=== PATIENT | female | born 1960 | race Caucasian/White ===

== ENCOUNTER 2017-02-24 19:14 | Inpatient (IN) | payer OTHER ==
[~2017-02-24] VITALS: Ht 167.6 cm; Wt 95.4 kg
[~2017-02-24 19:14] MED LIST: ALPR1TAB PO; FENO134C10 PO; GABA600T2 PO; OXCA600T3 PO; OXYC15TA PO; OXYC1TAB7 PO; PARO20TA55 PO
[2017-02-24 19:57] LABS: BASO # 0.1 x10^3/uL (0.0-0.2); BASO % 1 % (0-3); EOS % 2 % (0-3); HEMATOCRIT 45.2 % (36.0-47.0); HEMOGLOBIN 15.2 g/dL (12.0-15.5); LYMPH # 3.5 x10^3/uL (1.0-4.8); LYMPH % 35 % (24-48); MEAN CORPUSCULAR HEMOGLOBIN 31 pg (25-35); MEAN CORPUSCULAR HGB CONC 34 g/dL (31-37); MEAN CORPUSCULAR VOLUME 92 fL (79-100); MONO % 5 % (0-9); NEUT % 57 % (31-73); PLATELET COUNT 305 x10^3/uL (140-400); RED BLOOD COUNT 4.94 x10^6/uL (3.50-5.40); RED CELL DISTRIBUTION WIDTH 13.4 % (11.5-14.5)
[2017-02-24] MEDS ORDERED: ALPRAZOLAM 0.5 MG TABLET. PO ONE (20:00)
[2017-02-24 20:22] LABS: PROTHROMBIN TIME PATIENT 12.4 SEC (11.7-14.0)
[2017-02-24 20:49] LABS: POTASSIUM 3.2 mmol/L (3.5-5.1); TOTAL BILIRUBIN 0.3 mg/dL (0.2-1.0); TOTAL PROTEIN 7.6 g/dL (6.4-8.2)
[2017-02-24 20:50] LABS: ALBUMIN/GLOBULIN RATIO 1.1 (1.0-1.7); CALCIUM 9.4 mg/dL (8.5-10.1); CREATININE 0.5 mg/dL (0.6-1.0); GFR 127.2
--- NOTE | 2017-02-24 20:50 | PHYS DOC ---
Past Medical History Past Medical History: Bipolar, Depression, High Cholesterol, Schizophrenia, Other Additional Past Medical Histor: PTSD Past Surgical History: Tonsillectomy, Other Additional Past Surgical Histo: EYE SURG Additional Information: 1 ppd Alcohol Use: Occasionally Additional Information: 1- 6 pack every three to 4 days Drug Use: Marijuana Adult General Chief Complaint Chief Complaint: CHEST PAIN HPI HPI 56-year-old female with history of anxiety presents with a 2 to three-hour history of severe substernal chest pressure that radiates up into her shoulders and down her arms. She states it radiates primarily down her left arm. She describes the pain is severe. She does not note anything that improves or exacerbates the pain. She denies shortness of breath or dyspnea on exertion. She denies nausea or diaphoresis. She does state that she is very anxious. [] Review of Systems Review of Systems Constitutional: Denies fever or chills [] Eyes: Denies change in visual acuity, redness, or eye pain [] HENT: Denies nasal congestion or sore throat [] Respiratory: Denies cough or shortness of breath [] Cardiovascular: No additional information not addressed in HPI [] GI: Denies abdominal pain, nausea, vomiting, bloody stools or diarrhea [] : Denies dysuria or hematuria [] Musculoskeletal: Denies back pain or joint pain [] Integument: Denies rash or skin lesions [] Neurologic: Denies headache, focal weakness or sensory changes [] Endocrine: Denies polyuria or polydipsia [] Current Medications Current Medications Current Medications Medications (Trade) Dose Ordered Sig/[facility] Start Time Stop Time Status Last Admin Dose Admin Acetaminophen (Tylenol) 650 mg PRN Q4HRS PRN 02/24/17 21:15 02/25/17 21:14 Alprazolam (Xanax) 1 mg 1X ONCE 02/24/17 20:00 02/24/17 20:01 DC 02/24/17 19:53 1 MG Aspirin (Children'S Aspirin) 324 mg 1X ONCE 02/24/17 21:15 02/24/17 21:16 DC 02/24/17 21:57 324 MG Enoxaparin Sodium (Lovenox 100mg Syringe) 90 mg Q12HR 02/24/17 21:30 02/24/17 21:57 90 MG Enoxaparin Sodium (Lovenox Per Pharmacy Treatment Dosing) 1 each PRN DAILY PRN 02/24/17 21:15 Morphine Sulfate 4 mg PRN Q2HR PRN 02/24/17 21:15 02/25/17 21:14 Nitroglycerin (Nitrostat) 0.4 mg PRN Q5MIN PRN 02/24/17 21:15 02/25/17 21:14 Ondansetron HCl (Zofran) 4 mg PRN Q8HRS PRN 02/24/17 21:15 02/25/17 21:14 Allergies Allergies Allergies Coded Allergies Type Severity Reaction Last Updated Verified No Known Drug Allergies 12/15/13 No Physical Exam Physical Exam Constitutional: Well developed, well nourished, no acute distress, non-toxic appearance. [] HENT: Normocephalic, atraumatic, bilateral external ears normal, oropharynx moist, no oral exudates, nose normal. [] Eyes: PERRLA, EOMI, conjunctiva normal, no discharge. [] Neck: Normal range of motion, no tenderness, supple, no stridor. [] Cardiovascular:Heart rate regular rhythm, no murmur [] Lungs & Thorax: Bilateral breath sounds clear to auscultation [] Abdomen: Bowel sounds normal, soft, no tenderness, no masses, no pulsatile masses. [] Skin: Warm, dry, no erythema, no rash. [] Back: No tenderness, no CVA tenderness. [] Extremities: No tenderness, no cyanosis, no clubbing, ROM intact, no edema. [] Neurologic: Alert and oriented X 3, normal motor function, normal sensory function, no focal deficits noted. [] Psychologic: Affect normal, judgement normal, mood normal. [] Current Patient Data Vital Signs Vital Signs Date Time Temp Pulse Resp B/P Pulse Ox O2 Delivery O2 Flow Rate FiO2 02/24/17 21:17 94 18 108/59 86 Room Air 02/24/17 19:25 98.0 98.0 Lab Values Laboratory Tests Test 02/24/17 19:41 White Blood Count 10.0x10^3/uL (4.0-11.0) Red Blood Count 4.94x10^6/uL (3.50-5.40) Hemoglobin 15.2g/dL (12.0-15.5) Hematocrit 45.2% (36.0-47.0) Mean Corpuscular Volume 92fL (79-100) Mean Corpuscular Hemoglobin 31pg (25-35) Mean Corpuscular Hemoglobin Concent 34g/dL (31-37) Red Cell Distribution Width 13.4% (11.5-14.5) Platelet Count 305x10^3/uL (140-400) Neutrophils (%) (Auto) 57% (31-73) Lymphocytes (%) (Auto) 35% (24-48) Monocytes (%) (Auto) 5% (0-9) Eosinophils (%) (Auto) 2% (0-3) Basophils (%) (Auto) 1% (0-3) Neutrophils # (Auto) 5.7x10^3uL (1.8-7.7) Lymphocytes # (Auto) 3.5x10^3/uL (1.0-4.8) Monocytes # (Auto) 0.5x10^3/uL (0.0-1.1) Eosinophils # (Auto) 0.2x10^3/uL (0.0-0.7) Basophils # (Auto) 0.1x10^3/uL (0.0-0.2) Prothrombin Time 12.4SEC (11.7-14.0) Prothrombin Time INR 1.0 (0.8-1.1) Sodium Level 138mmol/L (136-145) Potassium Level 3.2mmol/L (3.5-5.1) L Chloride Level 103mmol/L (98-107) Carbon Dioxide Level 20mmol/L (21-32) L Anion Gap 15 (6-14) H Blood Urea Nitrogen 9mg/dL (7-20) Creatinine 0.5mg/dL (0.6-1.0) L Estimated GFR (Cockcroft-Gault) 127.2 BUN/Creatinine Ratio 18 (6-20) Glucose Level 153mg/dL (70-99) H Calcium Level 9.4mg/dL (8.5-10.1) Total Bilirubin 0.3mg/dL (0.2-1.0) Aspartate Amino Transferase (AST) 27U/L (15-37) Alanine Aminotransferase (ALT) 36U/L (14-59) Alkaline Phosphatase 68U/L (46-116) Troponin I Quantitative 0.058ng/mL (0.000-0.055) WZ-Uua-G-Type Natriuretic Peptide 29pg/mL (0-124) Total Protein 7.6g/dL (6.4-8.2) Albumin 4.0g/dL (3.4-5.0) Albumin/Globulin Ratio 1.1 (1.0-1.7) Laboratory Tests 02/24/17 19:41 Laboratory Tests 02/24/17 19:41 EKG EKG [EKG: Sinus tachycardia rate of [address]-T changes] Radiology/Procedures Radiology/Procedures [Chest x-ray: No acute cardiopulmonary findings] Course & Med Decision Making Course & Med Decision Making Pertinent Labs and Imaging studies reviewed. (See chart for details) [ED course: Evaluation reveals a extremely anxious 56-year-old female complaining of chest discomfort. She was given 1 mg of Xanax which did help alleviate her anxiety.] Dragon Disclaimer Dragon Disclaimer This electronic medical record was generated, in whole or in part, using a voice recognition dictation system. Departure Departure Impression: Primary Impression: Chest pain Referrals: LETHA WONG MD (PCP) Problem Qualifiers Primary Impression: Chest pain Chest pain type: precordial pain Qualified Code: R07.2 - Precordial pain MARGI WILSON DO Feb 24, 2017 20:50
[2017-02-24] MEDS ORDERED: ASPIRIN CHEWABLE 81 MG TABLET. PO ONE (21:15)
[2017-02-24] MEDS ORDERED: ONDANSETRON PF 4 MG/2 ML VIAL. IV PRN (21:15)
[2017-02-24] MEDS ORDERED: ACETAMINOPHEN 325 MG TABLET. PO PRN (21:15)
[2017-02-24] MEDS ORDERED: NITROGLYCERIN SUBLINGUAL 0.4 MG BOTTLE OF 25. SL PRN (21:15)
[2017-02-24] MEDS ORDERED: MORPHINE SULFATE 4 MG/ML DISP.SYRIN. IV PRN (21:15)
--- NOTE | 2017-02-24 22:38 | ACF ---
Admission Forms Criteria CHEST PAIN Clinical Indications for Admission to Inpatient Care (Place 'X' for any and all applicable criteria): Admission is indicated for chest pain and ANY ONE of the following(1)(2)(3)(4)(5 ): [ ]I. Angina with acute coronary syndrome (Also use Myocardial Infarction or Angina guideline) [ ]II. Hemodynamic instability [ ]III. Angina needing acute intervention as indicated by ALL of the following( 11)(12): [ ]a) Unstable angina is present as indicated by angina that is ANY ONE of the following: [ ]i) New onset [ ]ii) Nocturnal [ ]iii) Prolonged at rest [ ]iv) Progressive [ ]b) Angina warrants acute intervention as indicated by ANY ONE of the following: [ ]i) Recurrent angina (e.g, not responding as previously to treatment) [ ]ii) Angina at rest or with low-level activities despite initial medical therapy [ ]iii) New or presumably new ST-segment depression on ECG [ ]iv) Signs or symptoms of heart failure (eg, dyspnea, pulmonary edema) [ ]v) New or worsening mitral regurgitation [ ]vi) Hemodynamic instability [ ]vii) Dangerous arrhythmia (eg, sustained ventricular tachycardia) [ ]viii) History of percutaneous coronary intervention within 6 months [ ]ix) History of coronary artery bypass graft surgery [ ]x) ROSE risk score of 2 or greater[A] [ ]xi) History of Diabetes(14) [ ]xii) High-risk cardiac ischemia findings on noninvasive testing (e.g, echocardiogram, treadmill testing, nuclear scan) [ ]xiii) Chronic renal insufficiency (ie, estimated GFR less than 60 mL/min/1.732m) [ ]xiv) Left ventricular ejection fraction less than 40% [ ]IV. Evidence of AL (eg, cardiac biomarkers positive, ST-segment elevation on ECG) also use Myocardial Infarction Criteria Form. [ ]V. Pulmonary edema [ ]. Respiratory distress [ ]VII. Chest pain indicative of serious diagnosis other than coronary artery disease (eg, aortic dissection) [ ]VIII. Contraindications and/or Inappropriate clinical situations for Observational Care in patients with Chest Pain, when ANY ONE of the following is required: [ ]a) Patient with risk factor for pulmonary embolism, acute coronary syndrome and myocardial infarction (18) [ ]b) Patient with Pulmonary embolism require an average LOS of 4.3 days, therefore emergency department observation management is inappropriate 18,23 [ ]c) Painful condition/s in the elderly, have the highest rate of recidivism after emergency department observation management (10.8%) 20,21,22 [ ]d) Elevated cardiac biomarker requires intensive and exhaustive care (19) [ ]IX. General contraindications and/or Inappropriate clinical situations for Observational Care in patients with Chest Pain, when ANY ONE of the following is required: [ ]a) Prediction of prolongation of LOS based on ANY ONE of the following may be considered as a contraindication for observational care 2, 3, 4, 5, 6, 7, 8, 9, 10, 11 [ ]i) Age > 65 yrs. [ ]ii) Patient arriving by ambulance [ ]iii) Patient with high acuity [ ]iv) Patient requiring vital sign monitoring [ ]v) Patient on IV medication [ ]b) Systolic blood pressures 180mmHg 3,12 [ ]c) Patient with altered mental status including delirium and other alteration of consciousness, (3) [ ]d) Patient whose discharge disposition will be to a group home home or rehabilitation home should not be managed in Emergency Department Observation Unit. CMS rule requires 3 days hospital stay before such placement. 3,13 [ ]e) Patient with failure to thrive due to broad array of etiologies 3,16,17 [ ]f) Inability to ambulate 3,14 Extended stay beyond goal length of stay may be needed for (1)(28): [ ]a) Specific condition diagnosed after evaluation (eg, pulmonary embolism, aortic dissection) [ ]b) Unstable angina [ ]c) Continued suspicion of acute coronary syndrome with inability to complete needed cardiac evaluation (eg, patient clinically unable to undergo stress testing) [ ]d) Myocardial infarction (Contents from ANGINA and CHEST PAIN clinical indications for admission to inpatient care have been integrated in this form) The original [email or web address] content created by [email or web address] has been revised. The portions of the content which have been revised are identified through the use of italic text or in bold, and [email or web address] has neither reviewed nor approved the modified material. All other unmodified content is copyright [email or web address]. Please see references footnoted in the original [email or web address] edition 2016 URIEL WESLEY Feb 24, 2017 22:38
[2017-02-24 23:55] VITALS: BP 127/75
--- NOTE | 2017-02-25 00:22 | ACF ---
Admission Forms Criteria CARDIOLOGY GRG Clinical Indications for Admission to Inpatient Care ( Place 'X' for any and all applicable criteria): Hospital admission is needed for appropriate care of the patient because of ANY ONE of the following (1): [ ] I. Hemodynamic instability as indicated by ALL of the following (1)(2)(3) (4)(5) [ ]a) Vital signs or other findings not as expected for chronic patient condition or baseline [ ]b) Instability indicated by ANY ONE of the following: [ ]i) Hypotension [ ]ii) Symptomatic Tachycardia unresponsive to treatment ( e.g., analgesia, fluids, sedation as indicated) [ ]iii) Inadequate perfusion indicated by ANY ONE of the following: [ ] 1) Lactic acidosis (> 2 mmol/L) [ ] 2) New abnormal capillary refill (> 3 seconds) [ ] 3) Reduced urine output [ ] 4) New altered mental status [ ]iv) Orthostatic vital sign changes unresponsive to treatment (e.g., fluids) [ ]v) IV inotropic or vasopressor medication required to maintain adequate blood pressure or perfusion [ ] II. Severe heart failure as indicated by ANY ONE of the following(17)(18) [ ]a) Respiratory distress [ ]b) Hypotension [ ]c) Anasarca (refractory to outpatient therapy) [ ]d) Cardiac arrhythmias of immediate concern [ ]e) Myocardial ischemia [ ] III. Cardiac arrhythmias or findings of immediate concern indicated by ANY ONE of the following (19)(20): [ ] a) Heart rhythms that are inherently dangerous or unstable indicated by ANY ONE of the following (21)(22)(23): [ ] i) Resuscitated ventricular fibrillation or cardiac arrest [ ] ii) Ventricular escape rhythm [ ] iii) Sustained ventricular tachycardia (30 seconds or more of ventricular rhythm at greater than 100 beats per minute) [ ] iv) Nonsustained ventricular tachycardia and ANY ONE of the following: [ ] 1) Suspected cardiac ischemia as cause or consequence of ventricular tachycardia [ ] 2) In setting of acute myocarditis [ ] b) Unstable cardiac conduction defects indicated by ANY ONE of the following(23)(24)(25) [ ] i) Type II second-degree atrioventricular block [ ]ii) Third-degree atrioventricular block [ ]iii) New-onset left bundle branch block with suspected myocardial ischemia [ ]c) Any heart rhythm and ANY ONE of the following (21)(22)(26)(27) (28) [ ] i) Continuous long-term ECG monitoring needed (e.g., initiation of drug requiring monitoring for more than 24 hours) [ ] ii) Patient has automatic implanted cardioverter defibrillator that is repeatedly firing, malfunctioning, or in need of immediate adjustment of settings beyond the scope of ambulatory or observation care [ ]d) Heart rhythms of concern due to ANY ONE of the following: [ ] i) Hypotension [ ] ii) Respiratory distress [ ] iii) Association with other significant symptoms (e.g., bradycardia with syncope or ongoing dizziness, supraventricular tachycardia with chest pain (14)(15)(17) [ ] IV. Monitoring for cardiac contusion beyond the scope of observation care needed [A](30)(31)(32) [ ] V. Surgical or device complication (e.g., valve replacement complication , pacemaker dysfunction) (35)(41)(44)(45)(46) [ ] . Inpatient palliative care needed. [B](49) Also use Inpatient Palliative Care Criteria [ ] VII. Nonbacterial thrombotic (marantic) endocarditis (36)(43)(47)(48) [X] VIII. Cardiology condition, symptom, or finding for which emergency and observation care has failed or are not considered appropriate. [ ] IX. Acute valvular disease requiring inpatient as indicated by ANY ONE of the following (41) [ ]a) Acute valvular regurgitation (42) [ ]b) Noninfectious valvulitis (43) [ ]c) Obstructive valve thrombosis [ ]d) Paravalvular leak [ ]e) Other significant valvular disorder remaining after emergency or observation level of care (as appropriate) [ ]X. Pericardial disease requiring inpatient treatment as indicated by ANY ONE of the following (33)(34)(35)(36)(37) [ ]a) Suspected tamponade (38)(39)(40) [ ]b) Hemopericardium [ ]c) Other significant pericardial disorder remaining after emergency or observation level of care (as appropriate) [ ] XI. Cardiac ischemia beyond scope of emergency and observation care. [ ] XII. Hypertension requiring inpatient treatment as indicated by ANY ONE of the following (6)(7)(8) [ ]a) SBP greater than 220 mm Hg or DBP greater than 120 mmHg despite treatment [ ]b) SBP greater than 140 mm Hg or DBP greater than 100 mm Hg with evidence of acute end organ damage as indicated by ANY ONE of the following [ ] i) Encephalopathy [ ] ii) Acute renal failure as indicated by new onset of ANY ONE of the following (9)(10)(11)(12)(13) [ ]1) 3-fold rise in serum creatinine from baseline [ ]2) Serum creatinine greater than 4 mg/dL ( 354 micromoles/L) with acute rise greater than 0.5 mg/dL (44.2 micromoles/L) [ ]3) Reduction of more than 75% in estimated glomerular filtration rate from baseline [ ]4) Estimated glomerular filtration rate less than 35 mL/min/1.73m2 (0.59 mL/sec/1.73m2) in child up to 18 years of age [ ]5) Cessation of urine output indicated by ALL of the following [ ]A. Adequate volume status [ ]B. Inadequate urine output as indicated by ANY ONE of the following [ ]a. Urine output less than 0.3 mL/kg/hr for 24 hours [ ]b. Anuria (urine output less than 0.1 mL/kg/hr) for 12 hours [ ] iii) Aortic dissection [ ] iv) Myocardial Ischemia [ ] v) Left ventricular heart failure [ ]vi) Retinal Hemorrhage [ ]vii) Other significant finding [ ]c) Hypertension in child requiring inpatient treatment as indicated by ALL of the following(14)(15)(16) [ ] i) Outpatient treatment not effective, not available, or not appropriate [ ]ii) SBP or DBP greater than 95th percentile for age [ ]iii) Evidence of acute end organ damage as indicated by ANY ONE of the following [ ]1) Altered mental status [ ]2) Acute renal failure as indicated by new onset of ANY ONE of the following(9)(10)(11)(12)(13) [ ]A. 3-fold rise in serum creatinine from baseline [ ]B. Serum creatinine greater than 4 mg/dL (354 micromoles/L) with acute rise greater than 0.5 mg/dL (44.2 micromoles/L) [ ]C. Reduction of more than 75% in estimated glomerular filtration rate from baseline [ ]D. Estimated glomerular filtration rate less than 35 mL/min/1.73m2 (0.59 mL/sec/1.73m2) in child up to 18 years of age [ ]E. Cessation of urine output indicated by ALL of the following [ ]a. Adequate volume status [ ]b. Inadequate urine output as indicated by ANY ONE of the following [ ]i) Urine output less than 0.3 mL/kg/hr for 24 hours [ ]ii) Anuria ( urine output less than 0.1 mL/kg/hr) for 12 hours [ ]3) Severe headache [ ]4) Visual disturbance [ ]5) Retinal hemorrhage [ ]6) Other significant finding [ ]XIII. Complications of transplanted heart indicated by ANY ONE of the following(61): [ ]a) Acute graft rejection requiring inpatient management (eg, intravenous immunosuppression)(62)(63) [ ]b) Acute graft heart failure indicated by ANY ONE of the following(64): [ ]i) Hemodynamic instability [ ]ii) Cardiac arrhythmias of immediate concern [ ]iii) Pulmonary edema that is very severe (eg, mechanical ventilation needed, imminent or likely, need for 100% oxygen to keep oxygen saturation above 90%) [ ]iv) Pulmonary edema that is persistent as indicated by ALL of the following: [ ]1) New need for oxygen therapy to keep oxygen saturation above 90% (or increased FiO2 need from baseline) [ ]2) Has not improved sufficiently with emergency department or observation care IV diuretics or other heart failure treatments[E] [ ]v) Altered mental status that is severe or persistent [ ]vi) Increased creatinine (new on laboratory test) with reduction of more than 50% in estimated glomerular filtration rate from baseline [ ]vii) Progressively (ongoing) rising creatinine (known from past laboratory test) with reduction of more than 25% in estimated glomerular filtration rate from baseline [ ]viii) Acute renal failure [ ]ix) Acute peripheral ischemia (eg, examination shows pulseless, cool, mottled, or cyanotic extremity) [ ]x) Pulmonary artery catheter monitoring needed [ ]xi) Other sign or symptom of heart failure requiring inpatient treatment (ie, too severe or not responsive to outpatient and observation care treatment) [ ]c) Infection requiring inpatient management (eg, Hemodynamic instability, need for intravenous antimicrobial treatment)(66)(67)(68)(69)(70) [ ]d) Cardiac allograft vasculopathy requiring inpatient management ( eg evidence of cardiac ischemia)(71) [ ]e) Other complication of transplanted heart (eg, stroke, severe pulmonary hypertension, severe valvular dysfunction) requiring inpatient management(72) The original [facility] content created by [facility] has been revised. The portions of the content which have been revised are identified through the use of italic text or in bold, and [facility] has neither reviewed nor approved the modified material. All other unmodified content is copyright [facility]. Please see references footnoted in the original [facility] edition 2016 Admission Criteria Met?: Yes URIEL WESLEY Feb 25, 2017 00:22
[2017-02-25 03:29] VITALS: BP_SYST 116
--- NOTE | 2017-02-25 06:59 | EKG ---
[facility] [address] [place] [id number] Test Date: 2017-02-24 Test Time: 19:25:39 Pat Name: CHEN RICHEY Department: Room: 260 1 Gender: F [employer]: : 1960 Requested By: MARGI WILSON Order Number: [id number] Reading MD: Reggie Rm Measurements Intervals [place] Rate: 103 P: 26 WV: 178 QRS: 56 QRSD: 98 T: 46 QT: 362 QTc: 476 Interpretive Statements SINUS TACHYCARDIA Electronically Signed On 02-25-2017 9:22:01 CDT by Reggie Rm
[2017-02-25 07:00] VITALS: BP 146/88
--- NOTE | 2017-02-25 08:41 | RAD ---
Exam: AP portable chest. History: Mid and left-sided chest pain. Comparison: 12/30/2013. Findings: The heart and mediastinal structures are within normal limits for size. Lungs are without infiltrate. No pneumothorax or pleural effusion is appreciated. Impression: 1. No acute cardiopulmonary process.
[2017-02-25] MEDS ORDERED: ALPRAZOLAM 1 MG TABLET PO PRN (09:00)
--- NOTE | 2017-02-25 09:18 | PDOC ---
PROGRESS NOTES Subjective Subjective Patient reports chest pain has resolved. Objective Objective Vital Signs Date Time Temp Pulse Resp B/P Pulse Ox O2 Delivery O2 Flow Rate FiO2 02/25/17 08:21 100 146/88 02/25/17 07:00 97.5 18 96 Room Air 97.5 02/25/17 03:29 2.0 Intake and Output 02/25/17 07:00 Intake Total 500 ml Balance 500 ml Intake Oral 500 ml Physical Exam Abdomen: Normal bowel sounds, Soft, No tenderness Heart: Regular rate Extremities: No edema General: Alert, Oriented X3, No acute distress Lungs: Other (BS mildly decreased throughout but otherwise CTA) Assessment Assessment Problems Medical Problems: (1) Acute coronary syndrome Status: Acute (2) Chest pain Status: Acute Plan Plan of Care 1. Chest pain - Troponin mildly elevated initially, normal now. Patient with multiple risk factors for CAD. Reports a normal stress test at several years ago. Cardiology consult pending. Continue to monitor. 2. alcohol abuse - patient with long history of intermittent drinking. Reports she has been drinking recently due to stress in her life. No history of withdrawal symptoms. LFT's WNL. 3. COPD with tobaccoism - CXR clear. Patient aware of advice to quit smoking. Requests nicotine patch while here, ordered. 4. chronic anxiety with bipolar mood disorder - continue prn Xanax. Patient has follow up appointment at [facility], knows she may need other medications to help with her symptoms. Thinking is clear at this time and she appears about at her baseline. 5. hyperlipidemia - patient with history of this, has declined meds for this for years. Lab ordered. 6. hyperglycemia on admission lab - check A1C. 7. hypokalemia - po replacement ordered. Recheck lab in AM. Comment Review of Relevant I have reviewed the following items leroy (where applicable) has been applied. Labs Laboratory Tests Test 02/24/17 19:41 02/25/17 03:05 White Blood Count 10.0x10^3/uL (4.0-11.0) Red Blood Count 4.94x10^6/uL (3.50-5.40) Hemoglobin 15.2g/dL (12.0-15.5) Hematocrit 45.2% (36.0-47.0) Mean Corpuscular Volume 92fL (79-100) Mean Corpuscular Hemoglobin 31pg (25-35) Mean Corpuscular Hemoglobin Concent 34g/dL (31-37) Red Cell Distribution Width 13.4% (11.5-14.5) Platelet Count 305x10^3/uL (140-400) Neutrophils (%) (Auto) 57% (31-73) Lymphocytes (%) (Auto) 35% (24-48) Monocytes (%) (Auto) 5% (0-9) Eosinophils (%) (Auto) 2% (0-3) Basophils (%) (Auto) 1% (0-3) Neutrophils # (Auto) 5.7x10^3uL (1.8-7.7) Lymphocytes # (Auto) 3.5x10^3/uL (1.0-4.8) Monocytes # (Auto) 0.5x10^3/uL (0.0-1.1) Eosinophils # (Auto) 0.2x10^3/uL (0.0-0.7) Basophils # (Auto) 0.1x10^3/uL (0.0-0.2) Prothrombin Time 12.4SEC (11.7-14.0) Prothromb Time International Ratio 1.0 (0.8-1.1) Sodium Level 138mmol/L (136-145) Potassium Level 3.2mmol/L (3.5-5.1) Chloride Level 103mmol/L (98-107) Carbon Dioxide Level 20mmol/L (21-32) Anion Gap 15 (6-14) Blood Urea Nitrogen 9mg/dL (7-20) Creatinine 0.5mg/dL (0.6-1.0) Estimated GFR (Cockcroft-Gault) 127.2 BUN/Creatinine Ratio 18 (6-20) Glucose Level 153mg/dL (70-99) Calcium Level 9.4mg/dL (8.5-10.1) Total Bilirubin 0.3mg/dL (0.2-1.0) Aspartate Amino Transf (AST/SGOT) 27U/L (15-37) Alanine Aminotransferase (ALT/SGPT) 36U/L (14-59) Alkaline Phosphatase 68U/L (46-116) Troponin I Quantitative 0.058ng/mL (0.000-0.055) < 0.017ng/mL (0.000-0.055) XQ-Mrp-R-Type Natriuretic Peptide 29pg/mL (0-124) Total Protein 7.6g/dL (6.4-8.2) Albumin 4.0g/dL (3.4-5.0) Albumin/Globulin Ratio 1.1 (1.0-1.7) Laboratory Tests Test 02/24/17 19:41 02/25/17 03:05 White Blood Count 10.0x10^3/uL (4.0-11.0) Red Blood Count 4.94x10^6/uL (3.50-5.40) Hemoglobin 15.2g/dL (12.0-15.5) Hematocrit 45.2% (36.0-47.0) Mean Corpuscular Volume 92fL (79-100) Mean Corpuscular Hemoglobin 31pg (25-35) Mean Corpuscular Hemoglobin Concent 34g/dL (31-37) Red Cell Distribution Width 13.4% (11.5-14.5) Platelet Count 305x10^3/uL (140-400) Neutrophils (%) (Auto) 57% (31-73) Lymphocytes (%) (Auto) 35% (24-48) Monocytes (%) (Auto) 5% (0-9) Eosinophils (%) (Auto) 2% (0-3) Basophils (%) (Auto) 1% (0-3) Neutrophils # (Auto) 5.7x10^3uL (1.8-7.7) Lymphocytes # (Auto) 3.5x10^3/uL (1.0-4.8) Monocytes # (Auto) 0.5x10^3/uL (0.0-1.1) Eosinophils # (Auto) 0.2x10^3/uL (0.0-0.7) Basophils # (Auto) 0.1x10^3/uL (0.0-0.2) Prothrombin Time 12.4SEC (11.7-14.0) Prothromb Time International Ratio 1.0 (0.8-1.1) Sodium Level 138mmol/L (136-145) Potassium Level 3.2mmol/L (3.5-5.1) Chloride Level 103mmol/L (98-107) Carbon Dioxide Level 20mmol/L (21-32) Anion Gap 15 (6-14) Blood Urea Nitrogen 9mg/dL (7-20) Creatinine 0.5mg/dL (0.6-1.0) Estimated GFR (Cockcroft-Gault) 127.2 BUN/Creatinine Ratio 18 (6-20) Glucose Level 153mg/dL (70-99) Calcium Level 9.4mg/dL (8.5-10.1) Total Bilirubin 0.3mg/dL (0.2-1.0) Aspartate Amino Transf (AST/SGOT) 27U/L (15-37) Alanine Aminotransferase (ALT/SGPT) 36U/L (14-59) Alkaline Phosphatase 68U/L (46-116) Troponin I Quantitative 0.058ng/mL (0.000-0.055) < 0.017ng/mL (0.000-0.055) WF-Jrd-U-Type Natriuretic Peptide 29pg/mL (0-124) Total Protein 7.6g/dL (6.4-8.2) Albumin 4.0g/dL (3.4-5.0) Albumin/Globulin Ratio 1.1 (1.0-1.7) Medications Current Medications Alprazolam (Xanax) 1 mg 1X ONCE PO Last administered on 02/24/17 19:53; Start 02/24/17 at 20:00; Stop 02/24/17 at 20:01; Status DC Aspirin (Children'S Aspirin) 324 mg 1X ONCE PO Last administered on 02/24/17 21:57; Start 02/24/17 at 21:15; Stop 02/24/17 at 21:16; Status DC Enoxaparin Sodium (Lovenox Per Pharmacy Treatment Dosing) 1 each PRN DAILY PRN MC SEE COMMENTS; Start 02/24/17 at 21:15 Enoxaparin Sodium (Lovenox 100mg Syringe) 90 mg Q12HR SQ Last administered on 21:57; Start 02/24/17 at 21:30 Ondansetron HCl (Zofran) 4 mg PRN Q8HRS PRN IV NAUSEA/VOMITING; Start 02/24/17 at 21:15; Stop 02/25/17 at 21:14 Morphine Sulfate 4 mg PRN Q2HR PRN IV PAIN; Start 02/24/17 at 21:15; Stop at 21:14 Acetaminophen (Tylenol) 650 mg PRN Q4HRS PRN PO FEVER; Start 02/24/17 at 21:15; Stop 02/25/17 at 21:14 Nitroglycerin (Nitrostat) 0.4 mg PRN Q5MIN PRN SL CHEST PAIN Last administered on 02/25/17t 08:21; Start 02/24/17 at 21:15; Stop 02/25/17 at 21:14 Active Scripts Active Reported Xanax Xr (Alprazolam) 1 Mg Tab.er.24h 1 Mg PO TID Vitals/I & O Vital Sign - Last 24 Hours 02/24/17 02/24/17 02/24/17 02/24/17 19:25 20:09 21:17 21:54 Temp 98.0 98.0 Pulse 105 108 94 86 Resp 16 16 18 18 B/P 151/81 128/78 108/59 120/71 Pulse Ox 93 92 86 97 O2 Delivery Room Air Room Air Room Air Nasal Cannula O2 Flow Rate 2 02/24/17 02/24/17 02/24/17 02/24/17 22:24 22:54 23:22 23:55 Temp 98.2 98.2 Pulse 84 100 92 97 Resp 20 B/P 118/71 131/78 122/72 127/75 Pulse Ox 98 96 97 97 O2 Delivery Nasal Cannula Nasal Cannula Nasal Cannula Room Air O2 Flow Rate 2 2 2 02/25/17 02/25/17 02/25/17 02/25/17 00:43 03:29 07:00 08:21 Temp 97.5 97.5 97.5 97.5 Pulse 88 88 100 Resp 18 B/P 116/ 146/88 146/88 Pulse Ox 96 96 O2 Delivery Nasal Cannula Nasal Cannula Room Air O2 Flow Rate 2.0 2.0 Intake and Output 02/24/17 02/24/17 02/25/17 15:00 23:00 07:00 Intake Total 500 ml Balance 500 ml LETHA WONG MD Feb 25, 2017 09:18
[2017-02-25] MEDS ORDERED: NICOTINE 21MG PATCH. TD SCH (09:30)
[2017-02-25] MEDS ORDERED: POTASSIUM CHLORIDE 20 MEQ TABLET.ER. PO ONE ×2 (09:30→10:30)
--- NOTE | 2017-02-25 10:04 | PDOC2 ---
GOLDIE BANG TECHNICAL TRAINER 02/25/17 1004: CARDIAC CONSULT DATE OF CONSULT Date of Consult DATE: 02/25/17 TIME: 10:04 REASON FOR CONSULT Reason for Consult: chest pain REFERRING PHYSICIAN Referring Physician: Dr. Deep Singh SOURCE Source: Chart review, Patient HISTORY OF PRESENT ILLNESS HISTORY OF PRESENT ILLNESS 56 year old female who developed bilateral upper chest pain with numbness in both arms yesterday evening described as tight, sharp and dull. Associated with dizziness but no other symptoms. She had just completed drinking 5 - 6 beers prior to pain occurring. She had similar pain a couple of years ago and underwent stress testing @ [facility] which was reportedly normal, however , was discharge on ASA and SL NTG. Currently pain free since given SL NTG in ER. Initial troponin was 0.058 and then trended downward. No acute changes in EKG. Hypokalemic @ 3.2. History of hyperlipidemia but noncompliance with meds as she "forgets to take them." Reason for Visit: chest pain PAST MEDICAL HISTORY Cardiovascular: Hyperlipidemia Heme/Onc: No pertinent hx Hepatobiliary: No pertinent hx Psych: Bipolar, Depression, Schizophrenia, Other (PTSD; agoraphobia) Musculoskeletal: Osteoarthritis (DDD - cervical and lumbar) Rheumatologic: No pertinent hx Infectious disease: No pertinent hx ENT: No pertinent hx Renal/: No pertinent hx Endocrine: No pertinent hx Dermatology: No pertinent hx PAST SURGICAL HISTORY Past Surgical History: Appendectomy, Tonsillectomy, Other (bilateral carpal tunnel; IUD surgically excised; lumbar laminectomy; bilateral blepharoplasty) FAMILY HISTORY Family History: Diabetes (sister), Heart Disease (mother diagnosed late 40s or early 50s), Hypertension (sister) SOCIAL HISTORY Smoke: 1 pack per day (since age 11; decreased to one pack every 3 days "recently") ALCOHOL: heavy (one 6 pack every 2 - 3 days with 2 shots of "nancie" ) Drugs: Cocaine (as a teenager), Marijuana (in the last month) Lives: with Family (significant other) CURRENT MEDICATIONS CURRENT MEDICATIONS Current Medications Medications (Trade) Dose Ordered Sig/Rosa Route PRN Reason Start Time Stop Time Status Last Admin Dose Admin Alprazolam (Xanax) 1 mg 1X ONCE PO 02/24/17 20:00 02/24/17 20:01 DC 02/24/17 19:53 Aspirin (Children'S Aspirin) 324 mg 1X ONCE PO 02/24/17 21:15 02/24/17 21:16 DC 02/24/17 21:57 Enoxaparin Sodium (Lovenox 100mg Syringe) 90 mg Q12HR SQ 02/24/17 21:30 02/24/17 21:57 Nitroglycerin (Nitrostat) 0.4 mg PRN Q5MIN PRN SL CHEST PAIN 02/24/17 21:15 02/25/17 21:14 02/25/17 08:21 ALLERGIES ALLERGIES: Coded Allergies: No Known Drug Allergies (Unverified , 12/15/13) ROS Review of System 14 point review with pertinent positives in HPI PHYSICAL EXAM General: Alert, Oriented X3, Cooperative HEENT: Atraumatic, PERRLA Lungs: Clear to auscultation Heart: Regular rate, Normal S1, Normal S2, No murmurs, Other (no carotid bruits ) Abdomen: Normal bowel sounds, Soft Extremities: No edema, Normal pulses Neuro: Normal speech Psych/Mental Status: Mental status NL, Mood NL MUSCULOSKELETAL: No deformity VITALS VITALS Vital Signs Date Time Temp Pulse Resp B/P Pulse Ox O2 Delivery O2 Flow Rate FiO2 02/25/17 08:21 100 146/88 02/25/17 08:00 Nasal Cannula 2.0 02/25/17 07:00 97.5 18 96 97.5 LABS Lab: Laboratory Tests Test 02/24/17 19:41 02/25/17 03:05 White Blood Count 10.0x10^3/uL (4.0-11.0) Red Blood Count 4.94x10^6/uL (3.50-5.40) Hemoglobin 15.2g/dL (12.0-15.5) Hematocrit 45.2% (36.0-47.0) Mean Corpuscular Volume 92fL (79-100) Mean Corpuscular Hemoglobin 31pg (25-35) Mean Corpuscular Hemoglobin Concent 34g/dL (31-37) Red Cell Distribution Width 13.4% (11.5-14.5) Platelet Count 305x10^3/uL (140-400) Neutrophils (%) (Auto) 57% (31-73) Lymphocytes (%) (Auto) 35% (24-48) Monocytes (%) (Auto) 5% (0-9) Eosinophils (%) (Auto) 2% (0-3) Basophils (%) (Auto) 1% (0-3) Neutrophils # (Auto) 5.7x10^3uL (1.8-7.7) Lymphocytes # (Auto) 3.5x10^3/uL (1.0-4.8) Monocytes # (Auto) 0.5x10^3/uL (0.0-1.1) Eosinophils # (Auto) 0.2x10^3/uL (0.0-0.7) Basophils # (Auto) 0.1x10^3/uL (0.0-0.2) Prothrombin Time 12.4SEC (11.7-14.0) Prothromb Time International Ratio 1.0 (0.8-1.1) Sodium Level 138mmol/L (136-145) Potassium Level 3.2mmol/L (3.5-5.1) Chloride Level 103mmol/L (98-107) Carbon Dioxide Level 20mmol/L (21-32) Anion Gap 15 (6-14) Blood Urea Nitrogen 9mg/dL (7-20) Creatinine 0.5mg/dL (0.6-1.0) Estimated GFR (Cockcroft-Gault) 127.2 BUN/Creatinine Ratio 18 (6-20) Glucose Level 153mg/dL (70-99) Calcium Level 9.4mg/dL (8.5-10.1) Total Bilirubin 0.3mg/dL (0.2-1.0) Aspartate Amino Transf (AST/SGOT) 27U/L (15-37) Alanine Aminotransferase (ALT/SGPT) 36U/L (14-59) Alkaline Phosphatase 68U/L (46-116) Troponin I Quantitative 0.058ng/mL (0.000-0.055) < 0.017ng/mL (0.000-0.055) AP-Akk-C-Type Natriuretic Peptide 29pg/mL (0-124) Total Protein 7.6g/dL (6.4-8.2) Albumin 4.0g/dL (3.4-5.0) Albumin/Globulin Ratio 1.1 (1.0-1.7) Thyroid Stimulating Hormone (TSH) 4.980uIU/mL (0.358-3.74) IMAGES IMAGES CXR without acute findings EKG EKG no acute changes ASSESSMENT/PLAN ASSESSMENT/PLAN 1. chest pain atypical by description no acute changes in EKG and initial troponin level trivially elevated multiple risk factors: HLD (untreated), obesity, family history of premature CAD, tobacco use - recommend MPI; can not walk due to back surgery ? pain related to ETOH use and GI related 2. HLD check FLP 3. ETOH use suspect heavier use than she admits to echo to evaluate for ETOH CMP 4. elevated TSH defer to PCP 5. Bipolar disorder/PTSD/?schizophrenia Problems: ANDREW SPARROW MD 02/25/17 3115: CARDIAC CONSULT ALLERGIES ALLERGIES: Coded Allergies: No Known Drug Allergies (Unverified , 12/15/13) ASSESSMENT/PLAN ASSESSMENT/PLAN Patient seen and examined. Agree with above nurse practitioner note. 56-year-old woman with psychiatric comorbidities presenting with atypical chest pain. Normal cardiac exam. Minimally elevated troponin. Echo and cardiac stress test within normal limits. Supportive care from a cardiac standpoint. No further aggressive testing. Thank you for this consultation. Problems: GOLDIE BANG APRN Feb 25, 2017 10:04 ANDREW SPARROW MD Feb 25, 2017 17:39
[2017-02-25 10:30] VITALS: BP 132/81
[2017-02-25 10:32] LABS: CHOLESTEROL/HDL RATIO 8.6
--- NOTE | 2017-02-25 10:44 | HP ---
ADMIT DATE: 02/25/2017 CHIEF COMPLAINT: Chest pain. HISTORY OF PRESENT ILLNESS: The patient is a 56-year-old female with a long smoking history who presented to the Emergency Room with the above complaint. She reported a several day history of some mild intermittent chest pain. Her symptoms worsened on the evening of admission, she felt significant pressure all the way across her chest that radiated into her shoulders. When this pain persisted she came to the Emergency Room. Initial evaluation there showed a troponin of 0.058. EKG was without acute ischemic change. The patient was admitted for further treatment. PAST MEDICAL HISTORY: Chronic anxiety, bipolar mood disorder, degenerative disc disease of the lumbar spine, COPD, hyperlipidemia untreated, alcoholism. PAST SURGICAL HISTORY: Lumbar laminectomy, tubal ligation, tonsillectomy. ALLERGIES: The patient has no known drug allergies. HOME MEDICATIONS: Xanax 1 mg q.8h. p.r.n. anxiety, this is from [facility]. FAMILY HISTORY: Positive for coronary artery disease in her biological mother. SOCIAL HISTORY: The patient is , but lives with her ex-. She continues to smoke cigarettes, but has tried to cut down to less than a pack a day. The patient admits to some heavy drinking for the past 1-2 weeks, prior to that, she had been sober for some time. She smokes marijuana occasionally. REVIEW OF SYSTEMS: The patient denies fever or chills. She denies cough or shortness of breath. She had one episode of heartburn several days ago that she treated with Sophie-Wanda and the symptoms resolved. That pain did not feel like the chest pain for which she came to the Emergency Room last night. Her chronic anxiety has been worse recently. She has not been having hallucinations or delusional thinking. She takes Xanax as needed, but tries not to take it very often. She does have an appointment with [facility] in the near future. PHYSICAL EXAMINATION: GENERAL: The patient is alert and oriented x 3, resting comfortably in bed in no acute distress. HEENT: PERRL, EOMI, sclerae clear. Oropharynx: Mucous membranes moist. NECK: Supple, without lymphadenopathy. CHEST: Breath sounds mildly decreased throughout, but otherwise clear to auscultation. CARDIOVASCULAR: Regular rhythm without murmur. ABDOMEN: Soft, nontender, normoactive bowel sounds are present. EXTREMITIES: Without edema. ASSESSMENT AND PLAN: 1. Chest pain. The patient's second troponin has decreased to less than 0.017 and she reports that her pain has resolved. She has multiple risk factors for coronary artery disease. She reports she had a normal stress test at several years ago. A Cardiology consult is pending. We will continue to monitor her. 2. Alcohol abuse. The patient has a long history of intermittent drinking. She does not have a history of withdrawal symptoms. Her liver function tests are within normal limits on admission labs. We will monitor her for signs of alcohol withdrawal. 3. Chronic obstructive pulmonary disease with tobaccoism. Chest x-ray is clear at admission. The patient is well aware of the advice to quit smoking. She requests a nicotine patch while she is here and this has been ordered. 4. Chronic anxiety with bipolar mood disorder. Continue p.r.n. Xanax. The patient is appropriate and does not seem to be suffered from disordered thinking at this time. She is encouraged to follow up at [facility] for help with other medications for better control of her symptoms. 5. Hyperlipidemia. The patient has a long history of this and she has declined medication for years. We will check fasting lipids while she is here. 6. Hyperglycemia on admission lab. The patient does not have a history of diabetes. Her blood sugar was 153 at admission, an A1c has been ordered. 7. Hypokalemia. The patient's potassium was mildly low at 3.2, p.o. replacement has been ordered. We will recheck lab in the morning. LETHA WONG MD DR: SHAWNA/randy JOB#: [id number] / [id number] CHAY
[2017-02-25] MEDS ORDERED: REGADENOSON 0.4 MG/5 ML DISP.SYRIN. IV ONE (10:45)
--- NOTE | 2017-02-25 16:21 | RAD ---
APPROVED REPORT Test Type: Pharmacological Stress Nurse/Tech: bobo mathew Test Indications: chest pain Cardiac History: HTN, see EHR Medications: SEE EHR Medical History: SMOKER, SEE EHR Resting ECG: SR Resting Heart Rate: 77 bpm Resting Blood Pressure: 138/84mmHg Pretest Chest Pain: No chest pain Nurse/Tech Notes NO RESPIRATORY DISTRESS NOTED. Consent: The procedure was explained to the patient in lay terms. Informed consent was witnessed. Armin eout was entered into [employer]. History and Stress Test performed by RT Carrillo (R) (N) Pharm. Details Pharmacologic stress testing was performed using 0.4mg per 5ml of regadenoson given intravenously ove r 7-10 seconds. Stress Symptoms FACIAL FLUSHING, STOMCAH ACHE POST EXERCISE Reason for Termination: Infusion complete Max HR: 99 bpm Max Blood Pressure: 143/86mmHg Chest Pain: No. Arrhythmia: No. ST Change: No. INTERPRETATION Stress EKG Conclusion: No evidence of stress induced EKG changes. The rest and stress images show normal perfusion, normal contraction and thickening. Other Information Quality:Good Risk Assessment: Low Risk Conclusion 1. No evidence of stress induced EKG changes 2. Normal myocardial perfusion at stress/rest 3. Low risk study 4. EF preserved at > 70%
--- NOTE | 2017-02-25 16:30 | CARD ---
APPROVED REPORT EXAM: Two-dimensional and M-mode echocardiogram with Doppler and color Doppler. Other Information Quality : GoodHR: 86bpm Rhythm : NSR INDICATION Chest Pain 2D DIMENSIONS RVDd2.7 (2.9-3.5cm)Left Atrium(2D)3.5 (1.6-4.0cm) IVSd1.0 (0.7-1.1cm)Aortic Root(2D)3.3 (2.0-3.7cm) LVDd4.5 (3.9-5.9cm)LVOT Diameter1.9 (1.8-2.4cm) PWd1.0 (0.7-1.1cm)LVDs2.9 (2.5-4.0cm) FS (%) 35.4 %SV59.5 ml LVEF(%)64.9 (>50%) Aortic Valve AoV Peak Gustavo.152.0cm/sAoV VTI27.3cm AO Peak GR.9.2mmHgLVOT Peak Gustavo.95.3cm/s LVOT VTI 17.76cmAO Mean GR.5mmHg DL (VMAX)1.63gb7OGZ (VTI)1.94cm2 Mitral Valve MV E Rccpqzqv07.4cm/sMV DECEL OYIY285zm MV A Kyeoubwf105.6cm/sMV E Mean Gr.2mmHg MV DBL64fhZ/A Ratio0.7 MV A Noaizisv44neMLE (PHT)2.84cm2 TDI E/Lateral E'9.6E/Medial E'9.3 Pulmonary Valve PV Peak Eqnrjxqj17.9cm/sPV Peak Grad.3mmHg Tricuspid Valve TR P. Pqkrbotn828po/sRAP CGJKQEZD0vfPf TR Peak Gr.61ydZsHVPY94ykTp LEFT VENTRICLE The left ventricle is normal size. There is normal left ventricular wall thickness. Left ventricle sy stolic function is normal. The Ejection Fraction is 60-65%. There is normal LV segmental wall motion. Transmitral Doppler flow pattern is Grade I-abnormal relaxation pattern. There is no ventricular sep violet defect visualized. RIGHT VENTRICLE The right ventricle is normal size. The right ventricular systolic function is normal. ATRIA The left atrium size is normal. The right atrium size is normal. The interatrial septum is intact wit h no evidence for an atrial septal defect or patent foramen ovale as noted on 2-D or Doppler imaging. AORTIC VALVE The aortic valve is normal in structure and function. The aortic valve is trileaflet. Doppler and Col or Flow revealed no significant aortic regurgitation. There is no significant aortic valvular stenosi s. MITRAL VALVE Mitral annular calcification is mild. There is no evidence of mitral valve prolapse. There is no mitr al valve stenosis. Doppler and Color Flow revealed no mitral valve regurgitation noted. TRICUSPID VALVE The tricuspid valve is normal in structure. Doppler and Color Flow revealed trace tricuspid regurgita tion. There is no pulmonary hypertension. The PA pressure was estimated at 26 mmHg. PULMONIC VALVE The pulmonic valve is not well visualized. Doppler and Color Flow revealed no pulmonic valvular regur gitation. There is no pulmonic valvular stenosis. GREAT VESSELS The aortic root is normal in size. Normal pulmonary venous flow (Doppler). The IVC is normal in size and collapses >50% with inspiration. PERICARDIAL EFFUSION There is no pleural effusion. There is no evidence of significant pericardial effusion. Critical Notification Critical Value: No <Conclusion> Left ventricle systolic function is normal. The Ejection Fraction is 60-65%. There is normal LV segmental wall motion.
[2017-02-25 16:31] LABS: BARBITURATES NEG (NEG); BENZODIAZEPINES POS (NEG); CANNABINOIDS NEG (NEG); COCAINE NEG (NEG); METHADONE NEG (NEG); OPIATES NEG (NEG); PHENCYCLIDINE NEG (NEG)
[2017-02-25 16:33] LABS: ETHANOL, URINE NEG (NEG)
[2017-02-25] MEDS ORDERED: FENOFIBRATE,MICRONIZED 134 MG CAPSULE PO SCH (17:00)
--- NOTE | 2017-02-27 11:04 | DS ---
DATE OF DISCHARGE: 02/25/2017 CHIEF COMPLAINT: Chest pain. HISTORY OF PRESENT ILLNESS: The patient is a 56-year-old female with a long smoking history who presented to the Emergency Room with the above complaint. She reported a several-day history of mild intermittent chest pain. Her symptoms had worsened on the evening of admission and she felt significant pressure all the way across her chest that radiated into her shoulders. When this pain persisted, she came to the Emergency Room. Initial evaluation there showed a troponin of 0.058. EKG was without acute ischemic change and the patient was admitted for further treatment. HOSPITAL COURSE: The patient was admitted and placed on telemetry where she remained in sinus rhythm. She was seen in consultation by Cardiology. Her chest pain decreased and eventually resolved. She had an echocardiogram which was within normal limits. She underwent an MPI, which showed a low risk for coronary artery disease and ejection fraction of 70%. Cardiology felt that the patient's chest pain was of noncardiac origin and no further testing was advised. The patient has a history of alcohol abuse and reports that she had been drinking heavily for the past several weeks due to increased stress and anxiety. She also has a history of chronic anxiety with some bipolar mood disorder. She goes to [facility] sometimes. She had been taking Xanax from them as needed, but did not have any other medications to help with her symptoms. She is strongly advised to follow up with her psychiatrist. She is aware of the advice to abstain from alcohol and also to work on quitting smoking. She has COPD, but this appears stable and her chest x-ray was clear. The patient has a long history of hyperlipidemia and has declined medication for this. Fasting lipid profile showed triglycerides of 1238, total cholesterol 310, LDL , VLDL 248. The patient's TSH was mildly elevated at 4.9. Her A1c was within normal at 5.2. The patient was discharged home on 02/25/2017. She was advised to follow up in our office within 2 weeks. FINAL DIAGNOSES: 1. Musculoskeletal chest pain. 2. Alcohol abuse. 3. Chronic obstructive pulmonary disease with ongoing tobaccoism. 4. Chronic anxiety with bipolar mood disorder. 5. Hyperlipidemia. DISCHARGE MEDICATIONS: Xanax 1 mg q. 8 hours p.r.n. LETHA WONG MD DR: SHAWNA/randy JOB#: [id number] / [id number]
== END 2017-02-25 18:15 | disposition home or self-care (01) | DRG 313 ==
LOC: ER 19:14 → 2 SOUTH 21:00
PROVIDERS: ADMIT Family Medicine; ATTEND Family Medicine
DX: R07.89 Other chest pain (principal); E87.6 Hypokalemia; E78.00 Pure hypercholesterolemia, unspecified; E78.5 Hyperlipidemia, unspecified; F17.210 Nicotine dependence, cigarettes, uncomplicated; F20.9 Schizophrenia, unspecified; F31.9 Bipolar disorder, unspecified; F43.10 Post-traumatic stress disorder, unspecified; J44.9 Chronic obstructive pulmonary disease, unspecified; F40.00 Agoraphobia, unspecified; F12.90 Cannabis use, unspecified, uncomplicated; M19.90 Unspecified osteoarthritis, unspecified site; G56.03 Carpal tunnel syndrome, bilateral upper limbs; M50.30 Other cervical disc degeneration, unspecified cervical region; R73.9 Hyperglycemia, unspecified; F10.21 Alcohol dependence, in remission; Z82.49 Family history of ischemic heart disease and other diseases of the circulatory system; Z83.3 Family history of diabetes mellitus; Z91.14 Patient's other noncompliance with medication regimen; Z90.49 Acquired absence of other specified parts of digestive tract; Z79.899 Other long term (current) drug therapy; Z98.51 Tubal ligation status
CPT/HCPCS: 36415; 71010; 78452; 80053; 80061; 83036; 83880; 84443; 84484; 85027; 85610; 93005; 93017; 93306; 96374; 96375; 96376; A9500; G0481; J1650; J2785; 99285-25

== ENCOUNTER 2017-05-09 19:28 | Emergency (ER) | payer OTHER ==
[~2017-05-09] VITALS: Ht 167.6 cm; Wt 86.2 kg
[~2017-05-09 19:28] MED LIST changes: -PARO20TA55 PO; +PARO20TA99 PO
[2017-05-09 19:40] VITALS: BP 121/78
[2017-05-09] MEDS ORDERED: FAMOTIDINE 20 MG TABLET. PO ONE (19:45)
--- NOTE | 2017-05-09 19:48 | ED.ADGEN ---
Past Medical History Past Medical History: Bipolar, Depression, High Cholesterol, Schizophrenia, Other Additional Past Medical Histor: PTSD Past Surgical History: Tonsillectomy, Other Additional Past Surgical Histo: EYE SURG Alcohol Use: Occasionally Drug Use: Marijuana Adult General Chief Complaint Chief Complaint: CHEST PAIN HPI HPI Patient is a 56 year old female with history of bipolar, social anxiety resents with chest pain. Patient chest pain was central, non-radiating, and brief lasting less than 5 minutes. Patient was eating when symptoms began drink several alcoholic beverages earlier in the day. She denies shortness of breath, nausea, sweats, pain, leg pain and swelling. No history of CAD. Patient is a current smoker and is a regular consumer of alcohol. Patient's family medical history is unknown she was adopted. Review of Systems Review of Systems ROS as per HPI. Current Medications Current Medications Current Medications Medications (Trade) Dose Ordered Sig/Rosa Start Time Stop Time Status Last Admin Dose Admin Famotidine (Pepcid) 20 mg 1X ONCE 05/09/17 19:45 05/09/17 19:47 DC Allergies Allergies Allergies Coded Allergies Type Severity Reaction Last Updated Verified No Known Drug Allergies 12/15/13 No Physical Exam Physical Exam Constitutional: Anxious, focal, smells of EtOH. HENT: Normocephalic, atraumatic, bilateral external ears normal, oropharynx moist. Eyes: PERRLA, EOMI, conjunctivae injected. Neck: Normal range of motion, no tenderness, supple. Cardiovascular:Heart rate regular rhythm, no murmur. Lungs & Thorax: Bilateral breath sounds clear to auscultation. Abdomen: Bowel sounds normal, soft, no tenderness. Skin: Warm, dry, no erythema. Back: No tenderness. Extremities: No tenderness. Neurologic: Alert and oriented X 3, normal motor function, normal sensory function, no focal deficits noted. . Current Patient Data Vital Signs Vital Signs Date Time Temp Pulse Resp B/P (MAP) Pulse Ox O2 Delivery O2 Flow Rate FiO2 05/09/17 19:40 98.3 103 20 121/78 (92) 93 Room Air 98.3 EKG EKG [KJ: Normal sinus rhythm, rate 97, no acute ST-T wave changes, left atrial abnormality, QTC 456.] Radiology/Procedures Radiology/Procedures [Chest x-ray: Normal sinus rhythm, rate 97, no acute ST-T wave changes. Course & Med Decision Making Course & Med Decision Making Pertinent Labs and Imaging studies reviewed. (See chart for details) [Patient offered workup for evaluation of chest pain which she is declining. Patient verbalizes that she felt mistreated by a staff member. I was present in the room with a staff member who initially triaged the patient and brought the patient to the room. I did not witness and professional behavior, but offered to have a different staff member care for the patient. Patient then ripped off her EKG and monitor leads and left the ER getting out AGAINST MEDICAL ADVICE prior to departure. Dragon Disclaimer Dragon Disclaimer This electronic medical record was generated, in whole or in part, using a voice recognition dictation system. MICHAEL HARRINGTON DO May 09, 2017 19:48
--- NOTE | 2017-05-10 12:12 | EKG ---
[facility] [address] [place] [address] Test Date: 2017-05-09 Test Time: 19:36:45 Pat Name: CHEN RICHEY Department: Room: Gender: F [employer] Supervisor: SHELLEY EMT-P : 1960 Requested By: MICHAEL HARRINGTON Order Number: [id number] Reading MD: Floyd Guy Measurements Intervals Gardner Rate: 97 P: 42 OH: 190 QRS: 28 QRSD: 96 T: 39 QT: 356 QTc: 456 Interpretive Statements SINUS RHYTHM LEFT ATRIAL ABNORMALITY QRS(T) CONTOUR ABNORMALITY CONSIDER ANTEROLATERAL MYOCARDIAL DAMAGE ABNORMAL ECG RI6.01 Compared to ECG 02/24/2017 19:25:39 Atrial abnormality now present Sinus tachycardia no longer present Electronically Signed On 05-12-2017 10:47:04 CDT by Floyd Guy
== END 2017-05-09 20:00 | disposition left against medical advice (07) ==
LOC: ER 19:28
DX: R07.89 Other chest pain (principal); E78.00 Pure hypercholesterolemia, unspecified; F20.9 Schizophrenia, unspecified; F32.9 Major depressive disorder, single episode, unspecified; F43.10 Post-traumatic stress disorder, unspecified; F31.9 Bipolar disorder, unspecified; F12.10 Cannabis abuse, uncomplicated
CPT/HCPCS: 93005; 99283-25

== ENCOUNTER 2017-06-12 17:22 | Emergency (ER) | payer OTHER ==
[~2017-06-12] VITALS: Ht 167.6 cm; Wt 86.2 kg
--- NOTE | 2017-06-12 17:35 | PHYS DOC ---
Past Medical History Past Medical History: Bipolar, Depression, High Cholesterol, Schizophrenia, Other Additional Past Medical Histor: PTSD Past Surgical History: Tonsillectomy, Other Additional Past Surgical Histo: EYE SURG Alcohol Use: Heavy Drug Use: Marijuana Adult General Chief Complaint Chief Complaint: FOOT INJURY PAIN HPI HPI Patient is a 56 year old female that presents to the emergency department with complaints of right foot pain. Patient said she was walking down the steps to feed her dog when she fell. She reports she fell down 2-3 steps. Patient complains of pain at the top of her foot. She has been ambulatory on the extremity since incident. Review of Systems Review of Systems Constitutional: Denies fever or chills [] Musculoskeletal: Right foot pain Integument: Abrasions to right foot and right lower extremity Current Medications Current Medications Current Medications Medications (Trade) Dose Ordered Sig/Rosa Start Time Stop Time Status Last Admin Dose Admin Acetaminophen/ Codeine Phosphate (Tylenol #3) 1 tab 1X ONCE 06/12/17 17:45 06/12/17 17:46 DC 06/12/17 17:37 1 TAB Allergies Allergies Allergies Coded Allergies Type Severity Reaction Last Updated Verified No Known Drug Allergies 12/15/13 No Physical Exam Physical Exam Constitutional: Well developed, well nourished, no acute distress, non-toxic appearance. [] Skin: Warm, dry, no erythema, no rash. [] Back: No tenderness, no CVA tenderness. [] Extremities: Right lower extremity exam, no tenderness to palpate. There is superficial abrasions across the tibia aspect of the right lower extremity. No ecchymosis, no swelling. The right foot has swelling, ecchymosis and abrasions to the dorsal aspect of the foot. She is diffusely tender palpate. Neurovascular intact distally. Neurologic: Alert and oriented X 3, normal motor function, normal sensory function, no focal deficits noted. [] Current Patient Data Vital Signs Vital Signs Date Time Temp Pulse Resp B/P (MAP) Pulse Ox O2 Delivery O2 Flow Rate FiO2 06/12/17 17:37 16 96 Room Air EKG EKG [] Radiology/Procedures Radiology/Procedures Right foot x-ray reviewed by myself and Dr. Dean and, emergency room physician , no acute changes [] Course & Med Decision Making Course & Med Decision Making Right foot placed in Omid bandage by nursing staff. Patient tolerated well. Neurovascular intact distally. Patient ambulatory in the emergency department without difficulty. Pertinent Labs and Imaging studies reviewed. (See chart for details) [] Dragon Disclaimer Dragon Disclaimer This electronic medical record was generated, in whole or in part, using a voice recognition dictation system. Departure Departure Impression: Primary Impression: Contusion of right foot Disposition: HOME, SELF-CARE Condition: STABLE Referrals: LETHA WONG MD (PCP) Patient Instructions: Contusion, Elastic Bandage and RICE Additional Instructions: Follow-up your primary care provider in 3-5 days, sooner if problems persist. Scripts Naproxen (NAPROSYN) 500 Mg Tablet 500 MG PO BID, #20 TAB Prov: JOVANNI RAMEY APRN 06/12/17 JOVANNI RAMEY APRN Jun 12, 2017 17:35
[2017-06-12] MEDS ORDERED: ACETAMINOPHEN/CODEINE 300/30MG TABLET. PO ONE (17:45)
[2017-06-12 17:50] VITALS: BP 125/65
[2017-06-12] MEDS ORDERED: NAPR500T PO (17:53)
--- NOTE | 2017-06-13 08:45 | RAD ---
Indication pain. Swelling. Fall. AP oblique and lateral views of the right foot were obtained. No acute or significant bony finding is seen. Soft tissue swelling over the dorsum of the foot is noted. IMPRESSION:: No acute bony finding
[2017-06-13] MEDS ORDERED: PANT40TA3 PO (15:09)
== END 2017-06-12 18:16 | disposition home or self-care (01) ==
LOC: ER 17:22
DX: S90.31XA Contusion of right foot, initial encounter (principal); F31.9 Bipolar disorder, unspecified; E78.00 Pure hypercholesterolemia, unspecified; F20.9 Schizophrenia, unspecified; F10.10 Alcohol abuse, uncomplicated; F12.10 Cannabis abuse, uncomplicated; F43.10 Post-traumatic stress disorder, unspecified; W10.9XXA Fall (on) (from) unspecified stairs and steps, initial encounter; Y93.01 Activity, walking, marching and hiking; Y92.89 Other specified places as the place of occurrence of the external cause; Y99.8 Other external cause status
CPT/HCPCS: 73630; 99284

== ENCOUNTER 2017-06-12 23:58 | Observation (INO) | payer OTHER ==
[~2017-06-12] VITALS: Ht 167.6 cm; Wt 93.1 kg
[~2017-06-12 23:58] MED LIST changes: +NAPR500T PO
[2017-06-13 00:23] LABS: BASO # 0.1 x10^3/uL (0.0-0.2); BASO % 1 % (0-3); EOS % 2 % (0-3); HEMATOCRIT 45.6 % (36.0-47.0); HEMOGLOBIN 15.5 g/dL (12.0-15.5); LYMPH # 3.5 x10^3/uL (1.0-4.8); LYMPH % 42 % (24-48); MEAN CORPUSCULAR HEMOGLOBIN 31 pg (25-35); MEAN CORPUSCULAR HGB CONC 34 g/dL (31-37); MEAN CORPUSCULAR VOLUME 90 fL (79-100); MONO % 6 % (0-9); NEUT % 49 % (31-73); PLATELET COUNT 304 x10^3/uL (140-400); RED BLOOD COUNT 5.06 x10^6/uL (3.50-5.40); RED CELL DISTRIBUTION WIDTH 13.8 % (11.5-14.5); WHITE BLOOD COUNT 8.2 x10^3/uL (4.0-11.0)
[2017-06-13 00:31] LABS: CREATININE 0.7 mg/dL (0.6-1.0); GFR 86.2; POTASSIUM 3.8 mmol/L (3.5-5.1)
[2017-06-13 00:32] LABS: INR 1.1 (0.8-1.1); PROTHROMBIN TIME PATIENT 13.4 SEC (11.7-14.0)
[2017-06-13 00:37] LABS: ALBUMIN 3.9 g/dL (3.4-5.0); ALBUMIN/GLOBULIN RATIO 1.2 (1.0-1.7); TOTAL BILIRUBIN 0.3 mg/dL (0.2-1.0); TOTAL PROTEIN 7.1 g/dL (6.4-8.2)
[2017-06-13] MEDS ORDERED: MORPHINE SULFATE 2 MG/ML DISP.SYRIN. IV PRN (01:15)
[2017-06-13] MEDS ORDERED: NITROGLYCERIN SUBLINGUAL 0.4 MG BOTTLE OF 25. SL PRN (01:15)
[2017-06-13] MEDS ORDERED: ACETAMINOPHEN 325 MG TABLET. PO PRN (01:15)
[2017-06-13] MEDS ORDERED: CONTRAST GIVEN MC PRN (01:15)
[2017-06-13] MEDS ORDERED: ONDANSETRON PF 4 MG/2 ML VIAL. IV PRN (01:15)
[2017-06-13] MEDS ORDERED: IOHEXOL 300 MG/ML 75 ML VIAL IV ONE (01:30)
--- NOTE | 2017-06-13 01:54 | RAD ---
PQRS Compliance Statement: One or more of the following individualized dose reduction techniques were utilized for this examination: 1. Automated exposure control 2. Adjustment of the mA and/or kV according to patient size 3. Use of iterative reconstruction technique CT CHEST WITH CONTRAST, PULMONARY ANGIOGRAM History: chest pain, elevated d-dimer; Comparison: None. Technique: Helical CT of the chest was performed after the administration of 75 cc Omnipaque 300 intravenous contrast according to PE protocol. Axial and coronal reconstructions were obtained. 3-D MIP images were constructed to better evaluate the pulmonary arteries. Findings: Pulmonary arteries are adequately opacified. There is no evidence of pulmonary embolism. No adenopathy is seen in the chest. Cannot evaluate the lumen of the thoracic aorta due to limited contrast opacification. Cardiac size normal. There is moderate mitral annular calcification. No pericardial effusion. No pleural effusion. The central airways are patent. Nodular opacity in the peripheral right middle lobe may be due to scarring, image 78. Mild bilateral lower lobe dependent atelectasis. Visualized upper abdomen unremarkable. No compression fracture in the thoracic spine. IMPRESSION: There is no CT evidence of pulmonary embolus. Electronically signed by: Dallin Healy MD (06/13/2017 1:49 AM) [facility]
--- NOTE | 2017-06-13 02:14 | PHYS DOC ---
Past Medical History Past Medical History: Bipolar, Depression, High Cholesterol, Schizophrenia, Other Additional Past Medical Histor: PTSD Past Surgical History: Appendectomy, Tonsillectomy, Other Additional Past Surgical Histo: EYE SURG, BACK, CARPAL TUNNEL Alcohol Use: Heavy Drug Use: Marijuana Adult General Chief Complaint Chief Complaint: CHEST PAIN HPI HPI Patient is a 56 year old female who presents here today complaining of chest pain while watching TV tonight. Patient reports she started feeling dizzy diaphoretic and short of breath. Patient reports she took sublingual nitroglycerin and things are worse. Patient reports the pain got worse and dizziness got worse and she ended up going to the bathroom had multiple episodes of emesis. Patient denies any other symptomatology at this time. Patient has any fevers shakes chills cough cold or runny nose. Patient reports she had a chest discomfort radiating from her left and right chest. Patient reports that she has no history of coronary artery disease before. Patient reports that she had a normal exercise stress test approximately a month ago. Patient has any history of DJD and spinal surgery 2 in the past. Patient has any hypertension or diabetes. Patient has any liver longer kidney problems. Patient has any history of coronary disease. Patient has any recent fevers shakes chills nausea or diarrhea. Patient has any cough cold or runny nose. Patient's physical exam the ER has been unremarkable. Patient does appear to be anxious. Patient's heart was regular rate and rhythm. Lungs were clear. Abdomen was soft nontender no rebound or guarding. Patient's ER workup is unremarkable except for an elevated d-dimer. Patient's chest x-ray was clear. Patient's troponin was negative. Patient's EKG revealed normal sinus rhythm at a heart rate of [address]-T wave abnormalities with no evidence of STEMI. Due to the patient's elevated d-dimer a CTA was ordered. Patient CTA of her chest revealed no acute pathology. The case was The case was discussed with Dr. Sol with agreed to admit the patient for further evaluation of a chest pain workup. Patient reports that she feels slightly anxious and does not feel comfortable going home whatsoever. Review of Systems Review of Systems Constitutional: Denies fever or chills [] Eyes: Denies change in visual acuity, redness, or eye pain [] All other review systems are negative except as documented in the history of present illness portion. Allergies Allergies Allergies Coded Allergies Type Severity Reaction Last Updated Verified No Known Drug Allergies 12/15/13 No Physical Exam Physical Exam Constitutional: Well developed, well nourished, no acute distress, non-toxic appearance. [] HENT: Normocephalic, atraumatic, bilateral external ears normal, oropharynx moist, no oral exudates, nose normal. [] Eyes: PERRLA, EOMI, conjunctiva normal, no discharge. [] Neck: Normal range of motion, no tenderness, supple, no stridor. [] Cardiovascular:Heart rate regular rhythm, Lungs & Thorax: Bilateral breath sounds clear to auscultation [] Abdomen: Bowel sounds normal, soft, no tenderness, no masses, no pulsatile masses. [] Skin: Warm, dry, no erythema, no rash. [] Back: No tenderness, no CVA tenderness. [] Extremities: No tenderness, no cyanosis, no clubbing, ROM intact, no edema. [] Neurologic: Alert and oriented X 3, normal motor function, normal sensory function, no focal deficits noted. [] Psychologic: Affect normal, judgement normal, mood normal. [] Current Patient Data Vital Signs Vital Signs Date Time Temp Pulse Resp B/P (MAP) Pulse Ox O2 Delivery O2 Flow Rate FiO2 06/13/17 00:50 80 20 156/69 (98) 96 Room Air 06/13/17 00:05 98.5 98.5 Lab Values Laboratory Tests Test 06/13/17 00:12 White Blood Count 8.2 x10^3/uL (4.0-11.0) Red Blood Count 5.06 x10^6/uL (3.50-5.40) Hemoglobin 15.5 g/dL (12.0-15.5) Hematocrit 45.6 % (36.0-47.0) Mean Corpuscular Volume 90 fL (79-100) Mean Corpuscular Hemoglobin 31 pg (25-35) Mean Corpuscular Hemoglobin Concent 34 g/dL (31-37) Red Cell Distribution Width 13.8 % (11.5-14.5) Platelet Count 304 x10^3/uL (140-400) Neutrophils (%) (Auto) 49 % (31-73) Lymphocytes (%) (Auto) 42 % (24-48) Monocytes (%) (Auto) 6 % (0-9) Eosinophils (%) (Auto) 2 % (0-3) Basophils (%) (Auto) 1 % (0-3) Neutrophils # (Auto) 4.0 x10^3uL (1.8-7.7) Lymphocytes # (Auto) 3.5 x10^3/uL (1.0-4.8) Monocytes # (Auto) 0.5 x10^3/uL (0.0-1.1) Eosinophils # (Auto) 0.2 x10^3/uL (0.0-0.7) Basophils # (Auto) 0.1 x10^3/uL (0.0-0.2) Prothrombin Time 13.4 SEC (11.7-14.0) Prothrombin Time INR 1.1 (0.8-1.1) D-Dimer (Lavinia) 1.08 ug/mlFEU (0.00-0.50) H Sodium Level 143 mmol/L (136-145) Potassium Level 3.8 mmol/L (3.5-5.1) Chloride Level 103 mmol/L (98-107) Carbon Dioxide Level 21 mmol/L (21-32) Anion Gap 19 (6-14) H Blood Urea Nitrogen 13 mg/dL (7-20) Creatinine 0.7 mg/dL (0.6-1.0) Estimated GFR (Cockcroft-Gault) 86.2 BUN/Creatinine Ratio 19 (6-20) Glucose Level 127 mg/dL (70-99) H Calcium Level 9.0 mg/dL (8.5-10.1) Total Bilirubin 0.3 mg/dL (0.2-1.0) Aspartate Amino Transferase (AST) 23 U/L (15-37) Alanine Aminotransferase (ALT) 31 U/L (14-59) Alkaline Phosphatase 64 U/L (46-116) Troponin I Quantitative < 0.017 ng/mL (0.000-0.055) RI-Cbg-A-Type Natriuretic Peptide 15 pg/mL (0-124) Total Protein 7.1 g/dL (6.4-8.2) Albumin 3.9 g/dL (3.4-5.0) Albumin/Globulin Ratio 1.2 (1.0-1.7) Laboratory Tests 06/13/17 00:12 Laboratory Tests 06/13/17 00:12 EKG EKG [] Radiology/Procedures Radiology/Procedures [] Course & Med Decision Making Course & Med Decision Making Pertinent Labs and Imaging studies reviewed. (See chart for details) [] Dragon Disclaimer Dragon Disclaimer This electronic medical record was generated, in whole or in part, using a voice recognition dictation system. Departure Departure Impression: Primary Impression: Chest pain Disposition: HOME, SELF-CARE Admitting Physician: Chris Hughes Condition: IMPROVED Referrals: LETHA WONG MD (PCP) OSCAR GAY MD Jun 13, 2017 02:14
[2017-06-13 02:39] VITALS: BP 121/65
--- NOTE | 2017-06-13 04:53 | EKG ---
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
[2017-06-13 07:39] VITALS: BP 151/80
--- NOTE | 2017-06-13 07:56 | RAD ---
Indication chest pain. A single view of the chest was obtained and is compared to an examination 02/24/2017. The heart, pulmonary vessels and mediastinum appear normal. The lungs are clear. There has not been a significant change when compared to the previous exam. IMPRESSION: No acute or focal process. No significant change
--- NOTE | 2017-06-13 09:11 | PDOC2 ---
CARDIAC CONSULT DATE OF CONSULT Date of Consult DATE: 06/13/17 TIME: 09:01 REASON FOR CONSULT Reason for Consult: Chest pain REFERRING PHYSICIAN Referring Physician: Janel SOURCE Source: Chart review, Patient HISTORY OF PRESENT ILLNESS HISTORY OF PRESENT ILLNESS This is a pleasant but anxious 56 yo female admitted for complains of chest tightness. She fell yesterday morning missed a step in the stairs and was able to grab a hold of the railing and caught herself and sustain right foot injury. Last night she started having chest tightness that was none radiating and was painful enough that she started sweating. No symptoms of palpitations, nausea or vomiting. She also drank 4 beers yesterday and also took oxycodone. She also smoked marijuana yesterday. She does not take any reflux medications. Overnight she has not had any recurrence of this discomfort. There is no change to her activity tolerance and no prior chest discomfort prior to her fall. PAST MEDICAL HISTORY Past Medical History Cardiovascular: Hyperlipidemia Heme/Onc: No pertinent hx Hepatobiliary: No pertinent hx Psych: Bipolar, Depression, Schizophrenia, Other (PTSD; agoraphobia) Musculoskeletal: Osteoarthritis (DDD - cervical and lumbar) Rheumatologic: No pertinent hx Infectious disease: No pertinent hx ENT: No pertinent hx Renal/: No pertinent hx Endocrine: No pertinent hx Dermatology: No pertinent hx PAST SURGICAL HISTORY Past Surgical History Appendectomy, Tonsillectomy, Other (bilateral carpal tunnel; IUD surgically excised; lumbar laminectomy; bilateral blepharoplasty) FAMILY HISTORY Family History Diabetes (sister), Heart Disease (mother diagnosed late 40s or early 50s), Hypertension (sister) SOCIAL HISTORY Social History Smoke: 1 pack per day (since age 11; decreased to one pack every 3 days "recently") ALCOHOL: heavy (one 6 pack every 2 - 3 days with 2 shots of "nancie" ) Drugs: Cocaine (as a teenager), Marijuana (in the last month) Lives: with Family (significant other) CURRENT MEDICATIONS CURRENT MEDICATIONS Current Medications Medications (Trade) Dose Ordered Sig/Rosa Route PRN Reason Start Time Stop Time Status Last Admin Dose Admin Iohexol (Omnipaque 300 Mg/ml) 75 ml 1X ONCE IV 06/13/17 01:30 06/13/17 01:31 DC 06/13/17 01:27 Ondansetron HCl (Zofran) 4 mg PRN Q8HRS PRN IV NAUSEA/VOMITING 06/13/17 01:15 06/14/17 01:14 06/13/17 02:28 ALLERGIES ALLERGIES: Coded Allergies: No Known Drug Allergies (Unverified , 12/15/13) ROS Review of System 14 point ROS evaluated with pertinent positives noted per HPI PHYSICAL EXAM General: Alert, Oriented X3, Cooperative, No acute distress HEENT: Atraumatic, Mucous membr. moist/pink Lungs: Clear to auscultation, Normal air movement Heart: Regular rate (SR), Normal S1, Normal S2 Abdomen: Soft, No tenderness Extremities: No cyanosis, No edema Skin: No breakdown, No significant lesion Neuro: Normal speech, Sensation intact Psych/Mental Status: Mental status NL, Mood NL MUSCULOSKELETAL: Osteoarthritic changes both hands VITALS VITALS Vital Signs Date Time Temp Pulse Resp B/P (MAP) Pulse Ox O2 Delivery O2 Flow Rate FiO2 06/13/17 07:39 98.5 70 18 151/80 (103) 97 Room Air 98.5 LABS Lab: Laboratory Tests Test 06/13/17 00:12 06/13/17 07:00 White Blood Count 8.2 x10^3/uL (4.0-11.0) Red Blood Count 5.06 x10^6/uL (3.50-5.40) Hemoglobin 15.5 g/dL (12.0-15.5) Hematocrit 45.6 % (36.0-47.0) Mean Corpuscular Volume 90 fL (79-100) Mean Corpuscular Hemoglobin 31 pg (25-35) Mean Corpuscular Hemoglobin Concent 34 g/dL (31-37) Red Cell Distribution Width 13.8 % (11.5-14.5) Platelet Count 304 x10^3/uL (140-400) Neutrophils (%) (Auto) 49 % (31-73) Lymphocytes (%) (Auto) 42 % (24-48) Monocytes (%) (Auto) 6 % (0-9) Eosinophils (%) (Auto) 2 % (0-3) Basophils (%) (Auto) 1 % (0-3) Neutrophils # (Auto) 4.0 x10^3uL (1.8-7.7) Lymphocytes # (Auto) 3.5 x10^3/uL (1.0-4.8) Monocytes # (Auto) 0.5 x10^3/uL (0.0-1.1) Eosinophils # (Auto) 0.2 x10^3/uL (0.0-0.7) Basophils # (Auto) 0.1 x10^3/uL (0.0-0.2) Prothrombin Time 13.4 SEC (11.7-14.0) Prothromb Time International Ratio 1.1 (0.8-1.1) D-Dimer (Lavinia) 1.08 ug/mlFEU (0.00-0.50) Sodium Level 143 mmol/L (136-145) Potassium Level 3.8 mmol/L (3.5-5.1) Chloride Level 103 mmol/L (98-107) Carbon Dioxide Level 21 mmol/L (21-32) Anion Gap 19 (6-14) Blood Urea Nitrogen 13 mg/dL (7-20) Creatinine 0.7 mg/dL (0.6-1.0) Estimated GFR (Cockcroft-Gault) 86.2 BUN/Creatinine Ratio 19 (6-20) Glucose Level 127 mg/dL (70-99) Calcium Level 9.0 mg/dL (8.5-10.1) Total Bilirubin 0.3 mg/dL (0.2-1.0) Aspartate Amino Transf (AST/SGOT) 23 U/L (15-37) Alanine Aminotransferase (ALT/SGPT) 31 U/L (14-59) Alkaline Phosphatase 64 U/L (46-116) Troponin I Quantitative < 0.017 ng/mL (0.000-0.055) < 0.017 ng/mL (0.000-0.055) EW-Ydk-W-Type Natriuretic Peptide 15 pg/mL (0-124) Total Protein 7.1 g/dL (6.4-8.2) Albumin 3.9 g/dL (3.4-5.0) Albumin/Globulin Ratio 1.2 (1.0-1.7) ECHOCARDIOGRAM ECHOCARDIOGRAM <Conclusion> Left ventricle systolic function is normal. The Ejection Fraction is 60-65%. There is normal LV segmental wall motion. DATE: 02/25/17 7302 STRESS TEST STRESS TEST Conclusion 1. No evidence of stress induced EKG changes 2. Normal myocardial perfusion at stress/rest 3. Low risk study 4. EF preserved at > 70% DATE: 02/25/17 1621 ASSESSMENT/PLAN ASSESSMENT/PLAN 1. Atypical chest pain: No further recurrence overnight. suspect GERD/MSK 2. Anion gap metabolic acidosis: hx of substance abuse including ETOH/marijuana use yesterday 3. Alcoholism: last 4 beers yesterday 4. Tobaccoism 5. Anxiety: Bipolar/Schizophrenia- unmedicated' 6. Mechanical fall with right foot injury: occurred yesterday morning Recommendations 1. TTE and MPI 02/2017 unremarkable for significant changes. CTA neg for PE nor thoracic deformities. Troponin series normal and EKG SR. No further cardiac workup. 2. Smoking cessation. Curbing use of ETOH encouraged. 3. Start PPI. Pt is on opioids at home. Problems: RENE BLUE APRN Jun 13, 2017 09:11
[2017-06-13] MEDS ORDERED: PANTOPRAZOLE 40 MG TABLET.DR. PO SCH (10:30)
[2017-06-13 11:06] VITALS: BP 141/72
[2017-06-13] MEDS: ALPRAZolam 1 MG TABLET PO SCH ×2 (11:14→14:00)
[2017-06-13] MEDS ORDERED: PANT40TA3 PO (15:09)
--- NOTE | 2017-06-13 16:11 | HP ---
ADMIT DATE: 06/13/2017 CHIEF COMPLAINT: Diaphoresis. HISTORY OF PRESENT ILLNESS AND HOSPITAL COURSE: The patient is a 56-year-old female who, earlier in the day, came to the hospital after injuring her right ankle. She was treated for ankle sprain and released. She is having severe pain and taken oxycodone to release some of her pain. Sometime after this, she became very diaphoretic and somewhat short of breath and began having chest pressure. This did not relent, therefore, she came to the Emergency Room for further evaluation. She also complained of dizziness. She took a sublingual nitro, which she had received from a previous hospital evaluation. This made her symptoms worse. She ended up having multiple episodes of emesis. She came to the Emergency Room for evaluation. Evaluation was negative for cardiac findings but, due to the patient's significant history of diaphoresis and chest pressure, she was admitted for rule out protocol. After reviewing old record, it was discovered that the patient has already had two evaluations in the last year with negative stress testings and echos. During early hospitalization, again, the patient improved with n.p.o. status and fluid support. The patient is asking for fluid at time of my interview and is having no further symptoms. The case was discussed with nurse practitioner and awaiting cardiology final evaluation. The plans for discharge were made with early followup with primary care physician for anxiety, ongoing back pain, chest pain, and recent ankle injury. PAST MEDICAL HISTORY: Significant for; 1. Bipolar disease. 2. PTSD. 3. Obsessive compulsive disorder. 4. Degenerative disk disease of back. 5. Chronic obstructive pulmonary disease with history of smoking abuse. FAMILY HISTORY: Noncontributory unknown. SURGICAL HISTORY: 1. Significant for lumbar laminectomy in 2012 and 2013. 2. Tubal ligation. MEDICATIONS: Alprazolam 1 mg three times a day. The patient has albuterol metered dose inhaler. The patient apparently has muscle relaxers, antidepressants, and gabapentin at this time. SOCIAL HISTORY: She lives with significant other. She is . She denies alcohol. She is switching to E-cigarettes within the last week. ALLERGIES: The patient has no known drug allergies. REVIEW OF SYSTEMS: The patient recently had right ankle injury, was doing well until current episodes of diaphoresis, shortness of breath and dizziness as well as chest pressure. The patient denies any nausea, vomiting or diarrhea. The patient has not had cold, fever, chills, or recent weight loss. PHYSICAL EXAMINATION: GENERAL: This is a well-nourished, well-developed female who is somewhat pressured in her speech, anxious, but able to answer questions appropriately. HEENT: Benign. NECK: Supple, without JVD or bruit. CARDIAC: Regular rate and rhythm. LUNGS: Clear. ABDOMEN: Soft, nontender. EXTREMITIES: Showed 2+ pulses without significant edema. NEUROLOGIC: Showed no unilateral findings. ASSESSMENT: Atypical chest pain, most likely due to vasovagal reaction and use of oxycodone. PLAN: To discharge the patient to follow up with Dr. Duncan in one to two weeks and continue with conservative management of ankle injury with ice elevation and antiinflammatory medications as needed. NICKY MONDRAGON MD DR: MOOSE/randy JOB#: [id number] / [id number]
== END 2017-06-13 17:34 | disposition home or self-care (01) ==
LOC: ER 23:58 → INTOOBSV 06-13 01:00 → 2 SOUTH 06-13 01:00
PROVIDERS: ADMIT Family Medicine; ATTEND Family Medicine
DX: R07.89 Other chest pain (principal); F31.9 Bipolar disorder, unspecified; F43.10 Post-traumatic stress disorder, unspecified; F42.9 Obsessive-compulsive disorder, unspecified; J44.9 Chronic obstructive pulmonary disease, unspecified; F41.9 Anxiety disorder, unspecified; E78.5 Hyperlipidemia, unspecified; F20.9 Schizophrenia, unspecified; F17.210 Nicotine dependence, cigarettes, uncomplicated; E87.2 Acidosis; F12.90 Cannabis use, unspecified, uncomplicated; E78.00 Pure hypercholesterolemia, unspecified; F10.20 Alcohol dependence, uncomplicated; M51.36 Other intervertebral disc degeneration, lumbar region; I10 Essential (primary) hypertension; M50.30 Other cervical disc degeneration, unspecified cervical region; E11.9 Type 2 diabetes mellitus without complications; S99.911A Unspecified injury of right ankle, initial encounter; S99.921A Unspecified injury of right foot, initial encounter; W19.XXXA Unspecified fall, initial encounter; Y93.89 Activity, other specified; Y92.89 Other specified places as the place of occurrence of the external cause; Y99.8 Other external cause status; Z90.49 Acquired absence of other specified parts of digestive tract; Z82.49 Family history of ischemic heart disease and other diseases of the circulatory system; Z83.3 Family history of diabetes mellitus
CPT/HCPCS: 36415; 71010; 71275; 80053; 83880; 84484; 85027; 85379; 85610; 93005; 96374; 99285; G0378; J2405; Q9967; G0379

== ENCOUNTER 2018-04-11 12:33 | Emergency (ER) | payer OTHER | END 2018-04-11 13:06 | disposition home or self-care (01) | LOC: ER 13:06 | DX: H10.9 Unspecified conjunctivitis (principal); H00.015 Hordeolum externum left lower eyelid; H00.012 Hordeolum externum right lower eyelid; F32.9 Major depressive disorder, single episode, unspecified; F20.9 Schizophrenia, unspecified; E78.00 Pure hypercholesterolemia, unspecified; F43.10 Post-traumatic stress disorder, unspecified; Z90.49 Acquired absence of other specified parts of digestive tract | CPT/HCPCS: 99283 ==

== ENCOUNTER 2018-04-23 10:51 | Emergency (ER) | payer OTHER | END 2018-04-23 11:50 | disposition home or self-care (01) | LOC: ER 11:50 | DX: L03.818 Cellulitis of other sites (principal); S20.361A Insect bite (nonvenomous) of right front wall of thorax, initial encounter; S50.862A Insect bite (nonvenomous) of left forearm, initial encounter; E78.00 Pure hypercholesterolemia, unspecified; F20.9 Schizophrenia, unspecified; F43.10 Post-traumatic stress disorder, unspecified; F31.9 Bipolar disorder, unspecified; F12.10 Cannabis abuse, uncomplicated; W57.XXXA Bitten or stung by nonvenomous insect and other nonvenomous arthropods, initial encounter; Y93.89 Activity, other specified; Y99.8 Other external cause status; Y92.89 Other specified places as the place of occurrence of the external cause | CPT/HCPCS: 99283 ==

== ENCOUNTER 2018-05-18 00:03 | Emergency (ER) | payer OTHER ==
[2018-05-18 00:57] LABS: ADD MAN DIFF? NO
[2018-05-18 00:59] LABS: BASO # 0.1 x10^3/uL (0.0-0.2); BASO % 1 % (0-3); EOS # 0.3 x10^3/uL (0.0-0.7); EOS % 3 % (0-3); HEMATOCRIT 42.8 % (36.0-47.0); HEMOGLOBIN 15.7 g/dL (12.0-15.5); LYMPH # 3.6 x10^3/uL (1.0-4.8); LYMPH % 37 % (24-48); MEAN CORPUSCULAR HEMOGLOBIN 33 pg (25-35); MEAN CORPUSCULAR HGB CONC 37 g/dL (31-37); MEAN CORPUSCULAR VOLUME 90 fL (79-100); MONO # 0.5 x10^3/uL (0.0-1.1); MONO % 5 % (0-9); NEUT # 5.4 x10^3uL (1.8-7.7); NEUT % 55 % (31-73); PLATELET COUNT 336 x10^3/uL (140-400); RED BLOOD COUNT 4.75 x10^6/uL (3.50-5.40); RED CELL DISTRIBUTION WIDTH 13.6 % (11.5-14.5); WHITE BLOOD COUNT 9.9 x10^3/uL (4.0-11.0)
[2018-05-18 01:07] LABS: ANION GAP 12 (6-14); BLOOD UREA NITROGEN 20 mg/dL (7-20); CALCIUM 9.1 mg/dL (8.5-10.1); CARBON DIOXIDE 23 mmol/L (21-32); CHLORIDE 102 mmol/L (98-107); CREATININE 0.8 mg/dL (0.6-1.0); GFR 73.7; GLUCOSE 200 mg/dL (70-99); POTASSIUM 3.5 mmol/L (3.5-5.1); SODIUM 137 mmol/L (136-145)
[2018-05-18 01:11] LABS: INR 0.9 (0.8-1.1)
[2018-05-18 01:18] LABS: TROPONINI < 0.017 ng/mL (0.000-0.055)
[2018-05-18 01:19] LABS: NT-PRO BNP 32 pg/mL (0-124)
[2018-05-18 01:22] LABS: D-DIMER 0.97 ug/mlFEU (0.00-0.50)
== END 2018-05-18 03:50 | disposition home or self-care (01) ==
LOC: ER 00:03
DX: R07.89 Other chest pain (principal); R20.0 Anesthesia of skin; R22.0 Localized swelling, mass and lump, head; F31.9 Bipolar disorder, unspecified; E78.00 Pure hypercholesterolemia, unspecified; F20.9 Schizophrenia, unspecified
CPT/HCPCS: 36415; 71045; 80048; 83880; 84484; 85025; 85379; 85610; 93005; 99285-25

== ENCOUNTER 2018-08-15 15:49 | Emergency (ER) | payer OTHER ==
[~2018-08-15] VITALS: Ht 167.6 cm; Wt 85.7 kg
[~2018-08-15 15:49] MED LIST changes: +ALPR1TAB6 PO; +ATOR40TA59 PO; +CIPR250T PO; +CIPR250T30 PO; +CLIN300C8 PO; +CLOP75TA PO; +FENO54TA PO; +FLUV50TA2 PO; +HYDR25TA PO; +MUPI15CR TP; +NAPR-683 PO; -NAPR500T PO; +Nicotine 14MG TD; +OMEG1CAP6 PO; +PANT40TA3 PO; +QUET100T4 PO; +SULF1TAB24 PO; +TOBR5DRO2 OP
[2018-08-15 16:03] VITALS: BP 82/60
[2018-08-15] MEDS ORDERED: ALPRAZolam 0.5 MG TABLET PO ONE (16:30)
[2018-08-15 16:40] LABS: BILIRUBIN,URINE NEGATIVE (NEG); CLARITY,URINE CLEAR; NITRITE,URINE NEGATIVE (NEG); PROTEIN,URINE NEGATIVE (NEG-TRACE); UROBILINOGEN,URINE 0.2 mg/dL (0.2 mg/dL)
[2018-08-15 16:44] LABS: BARBITURATES NEG (NEG); BENZODIAZEPINES NEG (NEG); CANNABINOIDS NEG (NEG); COCAINE NEG (NEG); METHADONE NEG (NEG); OPIATES NEG (NEG); PHENCYCLIDINE NEG (NEG)
[2018-08-15] MEDS ORDERED: IV NORMAL SALINE 1000ML BAG 1,000 ML IV ONE (16:45)
[2018-08-15 16:52] LABS: AMPHETAMINE/METHAMPHETAMINE NEG (NEG)
[2018-08-15 16:54] LABS: BACTERIA,URINE FEW /HPF (0-FEW); COLOR,URINE STRAW; RBC,URINE 0 /HPF (0-2); SQUAMOUS EPITHELIAL CELL,UR FEW /LPF; WBC,URINE 0 /HPF (0-4)
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
== END 2018-08-15 16:55 | disposition left against medical advice (07) ==
LOC: ER 15:49
DX: F30.9 Manic episode, unspecified (principal); F10.129 Alcohol abuse with intoxication, unspecified; Y90.9 Presence of alcohol in blood, level not specified; E78.00 Pure hypercholesterolemia, unspecified; F20.9 Schizophrenia, unspecified; F43.10 Post-traumatic stress disorder, unspecified; F12.10 Cannabis abuse, uncomplicated
CPT/HCPCS: 80307; 81001; 99284; G0479

== ENCOUNTER → 2018-10-22 | Outpatient (CLI) | payer OTHER ==
[2018-10-22] MEDS: GADOBUTROL 10 MMOL/10 ML VIAL IV ONE (10:09)
--- NOTE | 2018-10-22 10:58 | RAD ---
EXAM: Lumbar spine MRI without and with contrast. HISTORY: Pain. TECHNIQUE: Multiplanar, multisequence magnetic resonance imaging of the lumbar spine was performed prior to and following the administration of 9 cc Gadavist intravenous contrast. COMPARISON: 06/07/2014 FINDINGS: There is mild lumbar scoliosis. There is minimal retrolisthesis of L3 on L4 and L4 on L5. There is degenerative endplate remodeling with osteophytosis and disc space narrowing predominantly along the left aspect of L3-L4. This corresponds with the level of maximum scoliotic curvature. There is disc desiccation at multiple levels. There are multiple endplate Schmorl's nodes. There is no suspicious osseous lesion. There is epidural lipomatosis primarily at the lumbosacral junction. The conus terminates at L1. There are laminectomy changes at L3-L5. There is associated scarring and susceptibility effect within the midline posterior back soft tissues. At L1-L2, there is a minimal disc bulge and mild anterior predominant endplate remodeling. There is mild left facet arthropathy. There is mild left foraminal stenosis. At L2-L3, there is a disc bulge and anterior predominant endplate osteophytosis. There is mild bilateral foraminal stenosis. At L3-L4, there is a broad-based right paracentral to foraminal disc protrusion and annular tear with 4 mm inferior extrusion superimposed on a left lateral predominant disc bulge and endplate osteophytosis. There is mild left greater than right facet arthropathy. There are laminectomy changes. There is mild right and moderate to severe left foraminal stenosis with effacement of the exiting left L3 nerve root. At L4-L5, there is a right foraminal to extra foraminal disc protrusion with 4 mm superior extrusion superimposed on a right lateral predominant disc bulge and endplate osteophytosis. There is moderate right facet arthropathy. There are laminectomy changes. There is severe right foraminal stenosis with effacement of the exiting right L4 nerve root. At L5-S1, there aren't left greater than right foraminal to extra foraminal disc protrusion superimposed on a disc bulge and endplate remodeling. There is mild to moderate bilateral facet arthropathy. There is moderate to severe right and moderate left foraminal stenosis with abutment of the exiting L5 nerve roots. There is narrowing of the thecal sac due to epidural lipomatosis. IMPRESSION: 1. Multilevel degenerative change throughout the lumbar spine, described in detail above. This results in mild left foraminal stenosis at L1-L2, mild bilateral foraminal stenosis at L2-L3, mild right and moderate to severe left foraminal stenosis with effacement of the exiting left L3 nerve root at L3-L4, severe right foraminal stenosis with effacement of the exiting right L4 nerve root at L4-L5, and moderate to severe right and moderate left foraminal stenosis with abutment of the exiting L5 nerve roots at L5-S1. 2. Laminectomy changes at L3-L5. 3. Mild scoliosis. Electronically signed by: Kaila Niño MD (10/22/2018 10:55 AM) [id number]
== END | disposition home or self-care (01) ==
LOC: MRI 09:06
PROVIDERS: ATTEND Family Medicine
DX: M51.36 Other intervertebral disc degeneration, lumbar region (principal); M48.061 Spinal stenosis, lumbar region without neurogenic claudication; M41.86 Other forms of scoliosis, lumbar region; M47.896 Other spondylosis, lumbar region
CPT/HCPCS: 72158; A9585

== ENCOUNTER 2019-04-01 11:02 | Inpatient (IN) | payer OTHER ==
[~2019-04-01] VITALS: Ht 167.6 cm; Wt 43.5 kg
[~2019-04-01 11:02] MED LIST changes: -GABA600T2 PO; +GABA600T7 PO
--- NOTE | 2019-04-01 12:00 | PHYS DOC ---
Past Medical History Past Medical History: Anxiety, Bipolar, Depression, High Cholesterol, Schizophrenia, Other Additional Past Medical Histor: PTSD,AGOROPHOBIA Past Surgical History: Appendectomy, Tonsillectomy, Other Additional Past Surgical Histo: EYE SX, BACK,CARPAL TUNNEL Alcohol Use: Occasionally Drug Use: Marijuana Adult General Chief Complaint Chief Complaint: LOWER EXT PAIN HPI HPI Patient is a 58 year old female presents to ED complaining of right abdominal/groin pain. Patient has history of a right common iliac stent placed by Dr. Galvez on 06/10/18. States she felt fine yesterday but woke up today with right common iliac pain. Describes the pain as sharp. Rates the pain as 8/10. Denies difficulty walking, cold extremity, weakness, paresthesias, n/v, fever, chest pain or shortness of breath. Review of Systems Review of Systems Constitutional: Denies fever or chills [] Eyes: Denies change in visual acuity, redness, or eye pain [] HENT: Denies nasal congestion or sore throat [] Respiratory: Denies cough or shortness of breath [] Cardiovascular: No additional information not addressed in HPI [] GI: Denies abdominal pain, nausea, vomiting, bloody stools or diarrhea [] : Denies dysuria or hematuria [] Musculoskeletal: Denies back pain or joint pain [] Integument: Denies rash or skin lesions [] Neurologic: Denies headache, focal weakness or sensory changes [] All other systems were reviewed and found to be within normal limits, except as documented in this note. Current Medications Current Medications Current Medications Medications (Trade) Dose Ordered Sig/[facility] Start Time Stop Time Status Last Admin Dose Admin Fentanyl Citrate (Fentanyl 2ml Vial) 50 mcg PRN Q1HR PRN 04/01/19 18:00 04/02/19 17:59 Metronidazole 100 ml @ 100 mls/hr 1X ONCE 04/01/19 17:45 04/01/19 18:44 Morphine Sulfate (Morphine Sulfate) 5 mg 1X ONCE 04/01/19 12:30 04/01/19 12:31 DC 04/01/19 12:50 5 MG Ondansetron HCl (Zofran Odt) 4 mg 1X ONCE 04/01/19 14:00 04/01/19 14:01 DC 04/01/19 14:06 4 MG Ondansetron HCl (Zofran) 4 mg PRN Q8HRS PRN 04/01/19 18:00 04/02/19 17:59 Piperacillin Sod/ Tazobactam Sod 3.375 gm/Sodium Chloride 50 ml @ 100 mls/hr 1X ONCE 04/01/19 17:45 04/01/19 18:14 DC 04/01/19 17:57 100 MLS/HR Allergies Allergies Allergies Coded Allergies Type Severity Reaction Last Updated Verified No Known Drug Allergies 12/15/13 No Physical Exam Physical Exam Constitutional: Well developed, well nourished, no acute distress, non-toxic appearance. [] HENT: Normocephalic, atraumatic Eyes: PERRLA, EOMI, conjunctiva normal, no discharge. [] Neck: Normal range of motion, no tenderness, supple, no stridor. [] Cardiovascular:Heart rate regular rhythm, no murmur [] Lungs & Thorax: Bilateral breath sounds clear to auscultation [] Abdomen: Bowel sounds normal, soft, mild right abdominal/groin tenderness, no overlying skin changes. no masses, no pulsatile masses. [] Skin: Warm, dry, no erythema, no rash. [] Back: No tenderness, no CVA tenderness. [] Extremities: No tenderness, no cyanosis, no clubbing, ROM intact, no edema. 2+ distal pulses. Normal temperature. [] Neurologic: Alert and oriented X 3, normal motor function, normal sensory function, no focal deficits noted. [] Psychologic: Affect normal, judgement normal, mood normal. [] Current Patient Data Vital Signs Vital Signs Date Time Temp Pulse Resp B/P (MAP) Pulse Ox O2 Delivery O2 Flow Rate FiO2 04/01/19 18:20 22 94 04/01/19 12:50 Room Air 04/01/19 12:02 98.0 111 139/73 (95) 98.0 Lab Values Laboratory Tests Test 04/01/19 15:10 04/01/19 16:25 White Blood Count 9.0 x10^3/uL (4.0-11.0) Red Blood Count 4.80 x10^6/uL (3.50-5.40) Hemoglobin 14.7 g/dL (12.0-15.5) Hematocrit 43.0 % (36.0-47.0) Mean Corpuscular Volume 90 fL (79-100) Mean Corpuscular Hemoglobin 31 pg (25-35) Mean Corpuscular Hemoglobin Concent 34 g/dL (31-37) Red Cell Distribution Width 13.8 % (11.5-14.5) Platelet Count 344 x10^3/uL (140-400) Neutrophils (%) (Auto) 62 % (31-73) Lymphocytes (%) (Auto) 29 % (24-48) Monocytes (%) (Auto) 7 % (0-9) Eosinophils (%) (Auto) 2 % (0-3) Basophils (%) (Auto) 1 % (0-3) Neutrophils # (Auto) 5.6 x10^3uL (1.8-7.7) Lymphocytes # (Auto) 2.6 x10^3/uL (1.0-4.8) Monocytes # (Auto) 0.6 x10^3/uL (0.0-1.1) Eosinophils # (Auto) 0.2 x10^3/uL (0.0-0.7) Basophils # (Auto) 0.1 x10^3/uL (0.0-0.2) Sodium Level 141 mmol/L (136-145) Potassium Level 3.3 mmol/L (3.5-5.1) L Chloride Level 104 mmol/L (98-107) Carbon Dioxide Level 26 mmol/L (21-32) Anion Gap 11 (6-14) Blood Urea Nitrogen 13 mg/dL (7-20) Creatinine 0.7 mg/dL (0.6-1.0) Estimated GFR (Cockcroft-Gault) 85.6 BUN/Creatinine Ratio 19 (6-20) Glucose Level 102 mg/dL (70-99) H Calcium Level 9.2 mg/dL (8.5-10.1) Total Bilirubin 0.4 mg/dL (0.2-1.0) Aspartate Amino Transferase (AST) 29 U/L (15-37) Alanine Aminotransferase (ALT) 40 U/L (14-59) Alkaline Phosphatase 54 U/L (46-116) Total Protein 7.2 g/dL (6.4-8.2) Albumin 3.9 g/dL (3.4-5.0) Albumin/Globulin Ratio 1.2 (1.0-1.7) Lipase 2409 U/L (73-393) H Urine Collection Type Unknown Urine Color Yellow Urine Clarity Clear Urine pH 7.0 Urine Specific [place] 1.015 Urine Protein Negative mg/dL (NEG-TRACE) Urine Glucose (UA) Negative mg/dL (NEG) Urine Ketones (Stick) Negative mg/dL (NEG) Urine Blood Negative (NEG) Urine Nitrite Negative (NEG) Urine Bilirubin Negative (NEG) Urine Urobilinogen Dipstick 1.0 mg/dL (0.2 mg/dL) Urine Leukocyte Esterase Negative (NEG) Urine RBC 0 /HPF (0-2) Urine WBC 0 /HPF (0-4) Urine Squamous Epithelial Cells Many /LPF Urine Bacteria Mod /HPF (0-FEW) Laboratory Tests 04/01/19 15:10 Laboratory Tests 04/01/19 15:10 EKG EKG [] Radiology/Procedures Radiology/Procedures []PROCEDURE: VENOUS LOWER EXTREMITY RIGHT Right lower extremity arterial Doppler ultrasound HISTORY: Right leg pain. History of right common iliac artery stent. TECHNIQUE: Color Doppler, grayscale and duplex analysis performed of the right lower extremity arterial structures, from the common femoral artery through the runoff vessels. COMPARISON: June 09, 2018 Findings: All velocity measurements are in centimeters per second. Right femoral and popliteal arteries are patent. Mostly triphasic waveforms, except for biphasic waveform at the distal right superficial femoral artery. Monophasic waveforms in the runoff arteries below the knee. Flow cannot be documented in the peroneal artery. There are no evidence of critical segmental velocity elevation. No evidence of occlusive disease. Scanning is performed at the area of pain in the right groin, no focal sonographic abnormality is seen in this area. IMPRESSION: Atherosclerotic changes with monophasic waveforms in the runoff arteries in the calf. No evidence of occlusion or critical stenosis. Right lower extremity venous doppler ultrasound Indication: Right leg pain. Technique: Color Doppler, grayscale, and spectral waveform analysis is used to evaluate the right femoral and popliteal veins. Findings: No evidence of deep venous thrombosis. Normal response to augmentation, normal compressibility and normal phasicity is demonstrated. Visualized calf veins are patent. Impression: Negative for deep venous thrombosis CT ABDOMEN PELVIS WO CONTRAST Indication: Right lower quadrant pain. Stent placement in May with pain around the site. Exposure: One or more of the following individualized dose reduction techniques were utilized for this examination: 1. Automated exposure control 2. Adjustment of the mA and/or kV according to patient size 3. Use of iterative reconstruction technique. Comparison: None are available. Technique: No intravenous contrast given. No oral contrast per request. Findings: Evaluation of solid viscera, bowel and vasculature is compromised by the noncontrast technique. Mild atelectasis in the lung bases. Coronary calcifications. Liver is not enlarged. Spleen not enlarged. No peripancreatic fluid or inflammatory type change. No adrenal mass. No significant hydronephrosis or urolithiasis. No calcified gallstone. The aorta is tortuous and mildly calcified without aneurysm. There is a right iliac artery stent. No significant lymph node enlargement. Stomach is distended with food. No significant small bowel distention. No evidence of acute colitis. The appendix is not visualized. There are no inflammatory type changes or fluid in the right lower quadrant. No significant ascites or evidence of pneumoperitoneum. The urinary bladder demonstrates no significant wall thickening. No evidence of pelvic mass. There are degenerative changes of the spine. There is evidence of prior posterior surgical decompression of lower spine. No destructive bone lesion is identified. IMPRESSION: 1. No evidence of acute findings in the abdomen or pelvis. 2. Appendix is not visualized. No fluid or inflammatory type changes in the right lower quadrant. PROCEDURE: ABDOMEN COMPLETE EXAM: Abdomen sonogram. HISTORY: Elevated lipase. Right flank pain. TECHNIQUE: Sonographic imaging of the abdomen was performed. COMPARISON: CT obtained on the same date. FINDINGS: The exam is limited due to body habitus and bowel gas. The liver is normal in size. There is hepatic steatosis. No focal hepatic lesion is seen. There is common bile duct dilatation, measuring 12 mm. There is cholelithiasis. There is gallbladder wall thickening. The kidneys are normal in size. No solid or cystic renal lesion is seen. There is no hydronephrosis. The pancreatic duct appears mildly dilated. The pancreatic tail is partially obscured. The spleen is normal in size. The aorta and inferior vena cava are predominantly obscured. IMPRESSION: 1. Cholelithiasis. There is superimposed gallbladder wall thickening which may be due to intrinsic liver disease or cholecystitis. Correlate with symptomatology. 2. Common bile duct dilatation and prominent downstream pancreatic duct. ERCP or MRCP may be useful if there is concern for a sonographically occult obstructing etiology. 3. Hepatic steatosis. 4. Limited exam due to body habitus and bowel gas. Course & Med Decision Making Course & Med Decision Making Pertinent Labs and Imaging studies reviewed. (See chart for details) []Discussed patients imaging with Dr. Galvez whom states that her stent appears to be working and patient has normal arterial and venous doppler of right lower leg. Patient continued to have abdominal pain. CT and US ordered. Imaging shows Cholelithiasis with superimposed gallbladder wall thickening whichmay be due to intrinsic liver disease or cholecystitis as well as common bile duct dilatation. Discussed labs and imaging with Dr. Osei. Agrees to admission and further management of patient. Patient stable for admission.General Surgery consult placed. Dragon Disclaimer Dragon Disclaimer This electronic medical record was generated, in whole or in part, using a voice recognition dictation system. Departure Departure Impression: Primary Impression: Cholelithiasis Additional Impression: Abdominal pain Disposition: ADMITTED INPATIENT Condition: STABLE Referrals: LETHA WONG MD (PCP) Problem Qualifiers ELÍAS REYES April 01, 2019 12:00
[2019-04-01] MEDS ORDERED: ONDANSETRON ODT 4 MG TAB.RAPDIS. PO ONE ×2 (12:30→14:00)
[2019-04-01] MEDS ORDERED: MORPHINE SULFATE 10 MG/ML VIAL. IM ONE (12:30)
--- NOTE | 2019-04-01 13:03 | RAD ---
Right lower extremity arterial Doppler ultrasound HISTORY: Right leg pain. History of right common iliac artery stent. TECHNIQUE: Color Doppler, grayscale and duplex analysis performed of the right lower extremity arterial structures, from the common femoral artery through the runoff vessels. COMPARISON: June 09, 2018 Findings: All velocity measurements are in centimeters per second. Right femoral and popliteal arteries are patent. Mostly triphasic waveforms, except for biphasic waveform at the distal right superficial femoral artery. Monophasic waveforms in the runoff arteries below the knee. Flow cannot be documented in the peroneal artery. There are no evidence of critical segmental velocity elevation. No evidence of occlusive disease. Scanning is performed at the area of pain in the right groin, no focal sonographic abnormality is seen in this area. IMPRESSION: Atherosclerotic changes with monophasic waveforms in the runoff arteries in the calf. No evidence of occlusion or critical stenosis. Right lower extremity venous doppler ultrasound Indication: Right leg pain. Technique: Color Doppler, grayscale, and spectral waveform analysis is used to evaluate the right femoral and popliteal veins. Findings: No evidence of deep venous thrombosis. Normal response to augmentation, normal compressibility and normal phasicity is demonstrated. Visualized calf veins are patent. Impression: Negative for deep venous thrombosis Electronically signed by: Chris Frias MD (04/01/2019 1:00 PM) [id number]
--- NOTE | 2019-04-01 14:49 | RAD ---
CT ABDOMEN PELVIS WO CONTRAST Indication: Right lower quadrant pain. Stent placement in May with pain around the site. Exposure: One or more of the following individualized dose reduction techniques were utilized for this examination: 1. Automated exposure control 2. Adjustment of the mA and/or kV according to patient size 3. Use of iterative reconstruction technique. Comparison: None are available. Technique: No intravenous contrast given. No oral contrast per request. Findings: Evaluation of solid viscera, bowel and vasculature is compromised by the noncontrast technique. Mild atelectasis in the lung bases. Coronary calcifications. Liver is not enlarged. Spleen not enlarged. No peripancreatic fluid or inflammatory type change. No adrenal mass. No significant hydronephrosis or urolithiasis. No calcified gallstone. The aorta is tortuous and mildly calcified without aneurysm. There is a right iliac artery stent. No significant lymph node enlargement. Stomach is distended with food. No significant small bowel distention. No evidence of acute colitis. The appendix is not visualized. There are no inflammatory type changes or fluid in the right lower quadrant. No significant ascites or evidence of pneumoperitoneum. The urinary bladder demonstrates no significant wall thickening. No evidence of pelvic mass. There are degenerative changes of the spine. There is evidence of prior posterior surgical decompression of lower spine. No destructive bone lesion is identified. IMPRESSION: 1. No evidence of acute findings in the abdomen or pelvis. 2. Appendix is not visualized. No fluid or inflammatory type changes in the right lower quadrant. Electronically signed by: Chris Frias MD (04/01/2019 2:47 PM) [facility]
[2019-04-01 15:19] LABS: BASO # 0.1 x10^3/uL (0.0-0.2); BASO % 1 % (0-3); EOS # 0.2 x10^3/uL (0.0-0.7); EOS % 2 % (0-3); HEMOGLOBIN 14.7 g/dL (12.0-15.5); LYMPH # 2.6 x10^3/uL (1.0-4.8); LYMPH % 29 % (24-48); MEAN CORPUSCULAR HEMOGLOBIN 31 pg (25-35); MEAN CORPUSCULAR HGB CONC 34 g/dL (31-37); MEAN CORPUSCULAR VOLUME 90 fL (79-100); MONO # 0.6 x10^3/uL (0.0-1.1); MONO % 7 % (0-9); NEUT # 5.6 x10^3uL (1.8-7.7); NEUT % 62 % (31-73); PLATELET COUNT 344 x10^3/uL (140-400); RED CELL DISTRIBUTION WIDTH 13.8 % (11.5-14.5)
[2019-04-01 15:26] LABS: CALCIUM 9.2 mg/dL (8.5-10.1); CREATININE 0.7 mg/dL (0.6-1.0); GFR 85.6; POTASSIUM 3.3 mmol/L (3.5-5.1)
[2019-04-01 15:34] LABS: ALBUMIN 3.9 g/dL (3.4-5.0); ALBUMIN/GLOBULIN RATIO 1.2 (1.0-1.7); TOTAL BILIRUBIN 0.4 mg/dL (0.2-1.0); TOTAL PROTEIN 7.2 g/dL (6.4-8.2)
[2019-04-01 16:38] LABS: BILIRUBIN,URINE NEGATIVE (NEG); CLARITY,URINE CLEAR; COLOR,URINE YELLOW; NITRITE,URINE NEGATIVE (NEG); PROTEIN,URINE NEGATIVE (NEG-TRACE)
[2019-04-01 16:52] LABS: BACTERIA,URINE MOD /HPF (0-FEW); RBC,URINE 0 /HPF (0-2); SQUAMOUS EPITHELIAL CELL,UR MANY /LPF; WBC,URINE 0 /HPF (0-4)
--- NOTE | 2019-04-01 17:31 | RAD ---
EXAM: Abdomen sonogram. HISTORY: Elevated lipase. Right flank pain. TECHNIQUE: Sonographic imaging of the abdomen was performed. COMPARISON: CT obtained on the same date. FINDINGS: The exam is limited due to body habitus and bowel gas. The liver is normal in size. There is hepatic steatosis. No focal hepatic lesion is seen. There is common bile duct dilatation, measuring 12 mm. There is cholelithiasis. There is gallbladder wall thickening. The kidneys are normal in size. No solid or cystic renal lesion is seen. There is no hydronephrosis. The pancreatic duct appears mildly dilated. The pancreatic tail is partially obscured. The spleen is normal in size. The aorta and inferior vena cava are predominantly obscured. IMPRESSION: 1. Cholelithiasis. There is superimposed gallbladder wall thickening which may be due to intrinsic liver disease or cholecystitis. Correlate with symptomatology. 2. Common bile duct dilatation and prominent downstream pancreatic duct. ERCP or MRCP may be useful if there is concern for a sonographically occult obstructing etiology. 3. Hepatic steatosis. 4. Limited exam due to body habitus and bowel gas. Electronically signed by: Kaila Niño MD (04/01/2019 5:28 PM) [facility]
[2019-04-01] MEDS ORDERED: PIPERACILLIN/TAZOBACTAM 3.375 GM in IV NORMAL SALINE 50ML 50 ML IV ONE (17:45)
[2019-04-01] MEDS ORDERED: ONDANSETRON PF 4 MG/2 ML VIAL. IV PRN (18:00)
[2019-04-01] MEDS ORDERED: fentaNYL PF VIAL 100 MCG/2 ML VIAL IV ONE (18:00)
[2019-04-01 19:45] VITALS: BP 161/100
[2019-04-01] MEDS: fentaNYL PF VIAL 100 MCG/2 ML VIAL IV PRN (20:11)
[2019-04-01 23:00] VITALS: BP 146/81
[2019-04-02] MEDS: fentaNYL PF VIAL 100 MCG/2 ML VIAL IV PRN ×4 (00:10→16:06)
[2019-04-02] MEDS ORDERED: ALPRAZolam 1 MG TABLET PO PRN (01:00)
[2019-04-02 03:00] VITALS: BP 169/120
[2019-04-02 05:35] LABS: BASO # 0.1 x10^3/uL (0.0-0.2); BASO % 1 % (0-3); EOS # 0.2 x10^3/uL (0.0-0.7); EOS % 3 % (0-3); HEMATOCRIT 38.7 % (36.0-47.0); HEMOGLOBIN 13.3 g/dL (12.0-15.5); LYMPH # 2.5 x10^3/uL (1.0-4.8); LYMPH % 35 % (24-48); MEAN CORPUSCULAR HEMOGLOBIN 31 pg (25-35); MEAN CORPUSCULAR HGB CONC 34 g/dL (31-37); MEAN CORPUSCULAR VOLUME 91 fL (79-100); MONO # 0.5 x10^3/uL (0.0-1.1); MONO % 7 % (0-9); NEUT % 55 % (31-73); PLATELET COUNT 287 x10^3/uL (140-400); RED BLOOD COUNT 4.27 x10^6/uL (3.50-5.40); RED CELL DISTRIBUTION WIDTH 13.8 % (11.5-14.5); WHITE BLOOD COUNT 7.2 x10^3/uL (4.0-11.0)
[2019-04-02 06:02] LABS: ALBUMIN 3.4 g/dL (3.4-5.0); ALBUMIN/GLOBULIN RATIO 1.1 (1.0-1.7); CALCIUM 9.1 mg/dL (8.5-10.1); CREATININE 0.7 mg/dL (0.6-1.0); GFR 85.6; POTASSIUM 3.6 mmol/L (3.5-5.1); TOTAL BILIRUBIN 0.4 mg/dL (0.2-1.0); TOTAL PROTEIN 6.4 g/dL (6.4-8.2)
[2019-04-02 07:00] VITALS: BP 153/78
--- NOTE | 2019-04-02 07:33 | PDOC1 ---
History and Physical Date of Admission Date of Admission 04/01/19 Identification/Chief Complaint Chief Complaint Right groin pain Source Source: Patient History of Present Illness History of Present Illness Pt states that she started to have pain in her right groin that started yesterday morning which continued to intensify throughout the day, so decided to come to the ER. Pt was concerned that it may be due to issues with a stent that was placed last May. Pain worse with moving leg. Not as bad if she is laying still and not moving her leg. Incidentally pt was found to have gallstones, gallbladder wall thickening and common bile duct dilatation. Pt asymptomatic, but does have RUQ tenderness. Past Medical History Cardiovascular: Hyperlipidemia Pulmonary: No pertinent hx CENTRAL NERVOUS SYSTEM: Other GI: No pertinent hx Heme/Onc: No pertinent hx Hepatobiliary: No pertinent hx Psych: Anxiety, Bipolar, Depression, Schizophrenia, Other Rheumatologic: No pertinent hx Infectious disease: No pertinent hx ENT: No pertinent hx Renal/: No pertinent hx Endocrine: No pertinent hx Dermatology: No pertinent hx Past Surgical History Past Surgical History: Appendectomy, Tubal Ligation, Tonsillectomy, Other Family History Family History: Diabetes, Hypertension Social History Smoke: <1 pack per day ALCOHOL: other (6-8 beers 3x/week) Drugs: None Current Problem List Problem List Problems Medical Problems: (1) Abdominal pain Status: Acute (2) Cholelithiasis Status: Acute Current Medications Current Medications Current Medications Medications (Trade) Dose Ordered Sig/Rosa Start Time Stop Time Status Last Admin Dose Admin Alprazolam (Xanax) 1 mg PRN TID PRN 04/02/19 01:00 04/02/19 01:11 1 MG Fentanyl Citrate (Fentanyl 2ml Vial) 50 mcg PRN Q1HR PRN 04/01/19 18:00 04/02/19 17:59 04/02/19 07:09 50 MCG Metronidazole 100 ml @ 100 mls/hr 1X ONCE 04/01/19 17:45 04/01/19 18:44 DC 04/01/19 21:05 100 MLS/HR Morphine Sulfate (Morphine Sulfate) 5 mg 1X ONCE 04/01/19 12:30 04/01/19 12:31 DC 04/01/19 12:50 5 MG Ondansetron HCl (Zofran Odt) 4 mg 1X ONCE 04/01/19 14:00 04/01/19 14:01 DC 04/01/19 14:06 4 MG Ondansetron HCl (Zofran) 4 mg PRN Q8HRS PRN 04/01/19 18:00 04/02/19 17:59 Piperacillin Sod/ Tazobactam Sod 3.375 gm/Sodium Chloride 50 ml @ 100 mls/hr 1X ONCE 04/01/19 17:45 04/01/19 18:14 DC 04/01/19 17:57 100 MLS/HR Allergies Allergies Allergies Coded Allergies Type Severity Reaction Last Updated Verified No Known Drug Allergies 12/15/13 No ROS Review of System CONSTITUTIONAL: No fever or chills EYES: No recent changes SKIN: No rash or itching CARDIOVASCULAR: No chest pain, syncope, palpitations, or edema RESPIRATORY: No SOB or cough GASTROINTESTINAL: No nausea, vomiting or abdominal pain NEUROLOGICAL: No headaches or weakness ENDOCRINE: No cold or heat intolerance GENITOURINARY: No urgency or frequency of urination MUSCULOSKELETAL: +right back pain, +right groin pain LYMPHATICS: No enlarged lymph nodes PSYCHIATRIC: No anxiety or depression Physical Exam Physical Exam GEN.: No apparent distress. Alert and oriented. HEENT: Head is normocephalic, atraumatic NECK: Supple. LUNGS: Clear to auscultation. HEART: RRR, S1, S2 present. Peripheral pulses intact ABDOMEN: Soft, Positive bowel sounds. RUQ tenderness EXTREMITIES: Without any cyanosis, right groin pain NEUROLOGIC: Normal speech, normal tone PSYCHIATRIC: Normal affect, normal mood. SKIN: No ulcerations Vitals Vitals Vital Signs Date Time Temp Pulse Resp B/P (MAP) Pulse Ox O2 Delivery O2 Flow Rate FiO2 04/02/19 07:09 Room Air 04/02/19 03:00 97.5 87 20 169/120 (136) 100 97.5 Labs Labs Laboratory Tests Test 04/01/19 15:10 04/01/19 16:25 04/02/19 04:45 White Blood Count 9.0 x10^3/uL (4.0-11.0) 7.2 x10^3/uL (4.0-11.0) Red Blood Count 4.80 x10^6/uL (3.50-5.40) 4.27 x10^6/uL (3.50-5.40) Hemoglobin 14.7 g/dL (12.0-15.5) 13.3 g/dL (12.0-15.5) Hematocrit 43.0 % (36.0-47.0) 38.7 % (36.0-47.0) Mean Corpuscular Volume 90 fL (79-100) 91 fL (79-100) Mean Corpuscular Hemoglobin 31 pg (25-35) 31 pg (25-35) Mean Corpuscular Hemoglobin Concent 34 g/dL (31-37) 34 g/dL (31-37) Red Cell Distribution Width 13.8 % (11.5-14.5) 13.8 % (11.5-14.5) Platelet Count 344 x10^3/uL (140-400) 287 x10^3/uL (140-400) Neutrophils (%) (Auto) 62 % (31-73) 55 % (31-73) Lymphocytes (%) (Auto) 29 % (24-48) 35 % (24-48) Monocytes (%) (Auto) 7 % (0-9) 7 % (0-9) Eosinophils (%) (Auto) 2 % (0-3) 3 % (0-3) Basophils (%) (Auto) 1 % (0-3) 1 % (0-3) Neutrophils # (Auto) 5.6 x10^3uL (1.8-7.7) 4.0 x10^3uL (1.8-7.7) Lymphocytes # (Auto) 2.6 x10^3/uL (1.0-4.8) 2.5 x10^3/uL (1.0-4.8) Monocytes # (Auto) 0.6 x10^3/uL (0.0-1.1) 0.5 x10^3/uL (0.0-1.1) Eosinophils # (Auto) 0.2 x10^3/uL (0.0-0.7) 0.2 x10^3/uL (0.0-0.7) Basophils # (Auto) 0.1 x10^3/uL (0.0-0.2) 0.1 x10^3/uL (0.0-0.2) Sodium Level 141 mmol/L (136-145) 138 mmol/L (136-145) Potassium Level 3.3 mmol/L (3.5-5.1) 3.6 mmol/L (3.5-5.1) Chloride Level 104 mmol/L (98-107) 102 mmol/L (98-107) Carbon Dioxide Level 26 mmol/L (21-32) 24 mmol/L (21-32) Anion Gap 11 (6-14) 12 (6-14) Blood Urea Nitrogen 13 mg/dL (7-20) 13 mg/dL (7-20) Creatinine 0.7 mg/dL (0.6-1.0) 0.7 mg/dL (0.6-1.0) Estimated GFR (Cockcroft-Gault) 85.6 85.6 BUN/Creatinine Ratio 19 (6-20) 19 (6-20) Glucose Level 102 mg/dL (70-99) 102 mg/dL (70-99) Calcium Level 9.2 mg/dL (8.5-10.1) 9.1 mg/dL (8.5-10.1) Total Bilirubin 0.4 mg/dL (0.2-1.0) 0.4 mg/dL (0.2-1.0) Aspartate Amino Transf (AST/SGOT) 29 U/L (15-37) 20 U/L (15-37) Alanine Aminotransferase (ALT/SGPT) 40 U/L (14-59) 33 U/L (14-59) Alkaline Phosphatase 54 U/L (46-116) 47 U/L (46-116) Total Protein 7.2 g/dL (6.4-8.2) 6.4 g/dL (6.4-8.2) Albumin 3.9 g/dL (3.4-5.0) 3.4 g/dL (3.4-5.0) Albumin/Globulin Ratio 1.2 (1.0-1.7) 1.1 (1.0-1.7) Lipase 2409 U/L (73-393) 282 U/L (73-393) Urine Collection Type Unknown Urine Color Yellow Urine Clarity Clear Urine pH 7.0 Urine Specific [place] 1.015 Urine Protein Negative mg/dL (NEG-TRACE) Urine Glucose (UA) Negative mg/dL (NEG) Urine Ketones (Stick) Negative mg/dL (NEG) Urine Blood Negative (NEG) Urine Nitrite Negative (NEG) Urine Bilirubin Negative (NEG) Urine Urobilinogen Dipstick 1.0 mg/dL (0.2 mg/dL) Urine Leukocyte Esterase Negative (NEG) Urine RBC 0 /HPF (0-2) Urine WBC 0 /HPF (0-4) Urine Squamous Epithelial Cells Many /LPF Urine Bacteria Mod /HPF (0-FEW) Laboratory Tests Test 04/01/19 15:10 04/01/19 16:25 04/02/19 04:45 White Blood Count 9.0 x10^3/uL (4.0-11.0) 7.2 x10^3/uL (4.0-11.0) Red Blood Count 4.80 x10^6/uL (3.50-5.40) 4.27 x10^6/uL (3.50-5.40) Hemoglobin 14.7 g/dL (12.0-15.5) 13.3 g/dL (12.0-15.5) Hematocrit 43.0 % (36.0-47.0) 38.7 % (36.0-47.0) Mean Corpuscular Volume 90 fL (79-100) 91 fL (79-100) Mean Corpuscular Hemoglobin 31 pg (25-35) 31 pg (25-35) Mean Corpuscular Hemoglobin Concent 34 g/dL (31-37) 34 g/dL (31-37) Red Cell Distribution Width 13.8 % (11.5-14.5) 13.8 % (11.5-14.5) Platelet Count 344 x10^3/uL (140-400) 287 x10^3/uL (140-400) Neutrophils (%) (Auto) 62 % (31-73) 55 % (31-73) Lymphocytes (%) (Auto) 29 % (24-48) 35 % (24-48) Monocytes (%) (Auto) 7 % (0-9) 7 % (0-9) Eosinophils (%) (Auto) 2 % (0-3) 3 % (0-3) Basophils (%) (Auto) 1 % (0-3) 1 % (0-3) Neutrophils # (Auto) 5.6 x10^3uL (1.8-7.7) 4.0 x10^3uL (1.8-7.7) Lymphocytes # (Auto) 2.6 x10^3/uL (1.0-4.8) 2.5 x10^3/uL (1.0-4.8) Monocytes # (Auto) 0.6 x10^3/uL (0.0-1.1) 0.5 x10^3/uL (0.0-1.1) Eosinophils # (Auto) 0.2 x10^3/uL (0.0-0.7) 0.2 x10^3/uL (0.0-0.7) Basophils # (Auto) 0.1 x10^3/uL (0.0-0.2) 0.1 x10^3/uL (0.0-0.2) Sodium Level 141 mmol/L (136-145) 138 mmol/L (136-145) Potassium Level 3.3 mmol/L (3.5-5.1) 3.6 mmol/L (3.5-5.1) Chloride Level 104 mmol/L (98-107) 102 mmol/L (98-107) Carbon Dioxide Level 26 mmol/L (21-32) 24 mmol/L (21-32) Anion Gap 11 (6-14) 12 (6-14) Blood Urea Nitrogen 13 mg/dL (7-20) 13 mg/dL (7-20) Creatinine 0.7 mg/dL (0.6-1.0) 0.7 mg/dL (0.6-1.0) Estimated GFR (Cockcroft-Gault) 85.6 85.6 BUN/Creatinine Ratio 19 (6-20) 19 (6-20) Glucose Level 102 mg/dL (70-99) 102 mg/dL (70-99) Calcium Level 9.2 mg/dL (8.5-10.1) 9.1 mg/dL (8.5-10.1) Total Bilirubin 0.4 mg/dL (0.2-1.0) 0.4 mg/dL (0.2-1.0) Aspartate Amino Transf (AST/SGOT) 29 U/L (15-37) 20 U/L (15-37) Alanine Aminotransferase (ALT/SGPT) 40 U/L (14-59) 33 U/L (14-59) Alkaline Phosphatase 54 U/L (46-116) 47 U/L (46-116) Total Protein 7.2 g/dL (6.4-8.2) 6.4 g/dL (6.4-8.2) Albumin 3.9 g/dL (3.4-5.0) 3.4 g/dL (3.4-5.0) Albumin/Globulin Ratio 1.2 (1.0-1.7) 1.1 (1.0-1.7) Lipase 2409 U/L (73-393) 282 U/L (73-393) Urine Collection Type Unknown Urine Color Yellow Urine Clarity Clear Urine pH 7.0 Urine Specific [place] 1.015 Urine Protein Negative mg/dL (NEG-TRACE) Urine Glucose (UA) Negative mg/dL (NEG) Urine Ketones (Stick) Negative mg/dL (NEG) Urine Blood Negative (NEG) Urine Nitrite Negative (NEG) Urine Bilirubin Negative (NEG) Urine Urobilinogen Dipstick 1.0 mg/dL (0.2 mg/dL) Urine Leukocyte Esterase Negative (NEG) Urine RBC 0 /HPF (0-2) Urine WBC 0 /HPF (0-4) Urine Squamous Epithelial Cells Many /LPF Urine Bacteria Mod /HPF (0-FEW) VTE Prophylaxis Ordered VTE Prophylaxis Devices: No VTE Pharmacological Prophylaxi: Yes Assessment/Plan Assessment/Plan Pt is a 58yo CF admitted for cholelithiasis 1)Cholelithiasis- with RUQ tenderness. Common bile duct dilatation, ERCP pending. Other than tenderness has been asymptomatic 2)Right groin pain- think likely groin strain. CTM 3)Bipolar D/O/PTSD/Anxiet- pt does not take medications. Has audio/visual hallucinations at time. Has Xanax available prn 4)Pancreatitis- resolved 5)Hypokalemia- resolved 6)Elevated BP- in reviewing chart, it appears pt likely has HTN. Will discuss D/C'ing on medication or considering starting something the next time she sees Dr. Duncan 7)DDD 8)PAD- s/p stent right leg last May. Pt continued on Plavix 9)HLD- pt continued on atorvastatin 40mg ARTURO JAY MD April 02, 2019 07:33
[2019-04-02] MEDS: CLOPIDOGREL BISULFATE 75 MG TABLET PO SCH (08:00)
--- NOTE | 2019-04-02 08:05 | NUR ---
Spoke with Brissa WILLINGHAM who said if patient is interested in surgery, plavix must be held for a week. She recommended this RN hold it just in case for today and see what the plans will be. Plavix non-administered.
[2019-04-02] MEDS: OMEGA-3 FATTY ACIDS/FISH OIL 1,000 MG CAPSULE. PO SCH (08:08)
[2019-04-02] MEDS: FENOFIBRATE 54 MG TABLET. PO SCH (08:09)
--- NOTE | 2019-04-02 08:36 | PDOC2 ---
JANICE OLSEN [employer] ADMIN 04/02/19 0836: CONSULT Date of Consult Date of Consult DATE: 04/02/19 TIME: 08:16 Reason for Consult Reason for Consult: cholelithiasis Referring Physician Referring Physician: Dr Retana Identification/Chief Complaint Chief Complaint Right groin pain Source Source: Chart review, Patient History of Present Illness Reason for Visit: PVD and stent placement in May. Comes in with right groin pain starting yesterday. She does complain of some back pain(acute yesterday,, however has chronic back issues). Tolerating diet, pain to RUQ when palpated. She is on plavix last took Fri. Past Medical History Cardiovascular: Hyperlipidemia Pulmonary: No pertinent hx CENTRAL NERVOUS SYSTEM: Other GI: No pertinent hx Heme/Onc: No pertinent hx Hepatobiliary: No pertinent hx Psych: Anxiety, Bipolar, Depression, Schizophrenia, Other Musculoskeletal: low back pain, Osteoarthritis Rheumatologic: No pertinent hx Infectious disease: No pertinent hx ENT: No pertinent hx Renal/: No pertinent hx Endocrine: No pertinent hx Dermatology: No pertinent hx Past Surgical History Past Surgical History: Appendectomy, Tubal Ligation, Tonsillectomy, Other Family History Family History: Diabetes, Hypertension Social History <1 pack per day ALCOHOL: other (6-8 beers 3x/week) Drugs: None Lives: with Family Current Problem List Problem List Problems Medical Problems: (1) Abdominal pain Status: Acute (2) Cholelithiasis Status: Acute Current Medications Current Medications Current Medications Morphine Sulfate (Morphine Sulfate) 5 mg 1X ONCE IM Last administered on 04/01/19at 12:50; Start 04/01/19 at 12:30; Stop 04/01/19 at 12:31; Status DC Ondansetron HCl (Zofran Odt) 4 mg 1X ONCE PO Last administered on 04/01/19at 12:46; Start 04/01/19 at 12:30; Stop 04/01/19 at 12:31; Status DC Ondansetron HCl (Zofran Odt) 4 mg 1X ONCE PO Last administered on 04/01/19at 14:06; Start 04/01/19 at 14:00; Stop 04/01/19 at 14:01; Status DC Metronidazole 100 ml @ 100 mls/hr 1X ONCE IV Last administered on 04/01/19at 21:05; Start 04/01/19 at 17:45; Stop 04/01/19 at 18:44; Status DC Piperacillin Sod/ Tazobactam Sod 3.375 gm/Sodium Chloride 50 ml @ 100 mls/hr 1X ONCE IV Last administered on 04/01/19at 17:57; Start 04/01/19 at 17:45; Stop 04/01/19 at 18:14; Status DC Fentanyl Citrate (Fentanyl 2ml Vial) 50 mcg 1X ONCE IV Last administered on 04/01/19at 18:20; Start 04/01/19 at 18:00; Stop 04/01/19 at 18:01; Status DC Ondansetron HCl (Zofran) 4 mg PRN Q8HRS PRN IV NAUSEA/VOMITING; Start 04/01/19 at 18:00; Stop 04/02/19 at 17:59 Fentanyl Citrate (Fentanyl 2ml Vial) 50 mcg PRN Q1HR PRN IV PAIN Last administered on 04/02/19at 07:09; Start 04/01/19 at 18:00; Stop 04/02/19 at 17:59 Alprazolam (Xanax) 1 mg PRN TID PRN PO ANXIETY / AGITATION Last administered on 04/02/19at 01:11; Start 04/02/19 at 01:00 Atorvastatin Calcium (Lipitor) 40 mg QHS PO ; Start 04/02/19 at 21:00 Clopidogrel Bisulfate (Plavix) 75 mg DAILYWBKFT PO ; Start 04/02/19 at 08:00 Fenofibrate (Lofibra) 54 mg DAILY PO ; Start 04/02/19 at 09:00 Fish Oil (Fish Oil) 1,000 mg DAILY PO ; Start 04/02/19 at 09:00 Active Scripts Active Fish Oil 1,000 Mg Capsule ([place]-3 Fatty Acids/Fish Oil) 1 Each Capsule 1,000 Mg PO DAILY 30 Days Atorvastatin Calcium 40 Mg Tablet 40 Mg PO QHS 30 Days Fenofibrate 54 Mg Tablet 54 Mg PO DAILY 30 Days Clopidogrel (Clopidogrel Bisulfate) 75 Mg Tablet 75 Mg PO DAILYWBKFT 30 Days Reported Alprazolam 1 Mg Tablet 1 Tab PO PRN TID PRN Allergies Allergies: Coded Allergies: No Known Drug Allergies (Unverified , 12/15/13) ROS General: No: Chills, Other (fevers ) PSYCHOLOGICAL ROS: No: Anxiety, Depression Eyes: No Blurry vision, No Double vision HEENT: No: Heacaches, Sore Throat Hematological and Lymphatic: YES: Bleeding Problems; No: Blood Clots Respiratory: No: Cough, Shortness of breath Cardiovascular: No Chest Pain, No Palpitations Gastrointestinal: Yes Other Genitourinary: No Dysuria, No Hematuria Musculoskeletal: Yes Joint Pain, Yes Muscle Pain Neurological: No Impaired Coord/balance, No Seizures Skin: No Pruritus, No Rash Physical Exam General: Alert, Oriented X3, Cooperative, No acute distress HEENT: PERRLA, Mucous membr. moist/pink Lungs: Clear to auscultation, Normal air movement Heart: Regular rate, Normal S1, Normal S2, No murmurs Abdomen: Soft, Other (RUQ and epigastric TTP) Skin: No rashes, No breakdown Neuro: Normal gait, Normal speech Psych/Mental Status: Mental status NL, Mood NL MUSCULOSKELETAL: No deformity, No swelling Vitals VITALS Vital Signs Date Time Temp Pulse Resp B/P (MAP) Pulse Ox O2 Delivery O2 Flow Rate FiO2 04/02/19 08:00 Room Air 04/02/19 07:00 97.5 78 18 153/78 (103) 95 97.5 Labs Labs Laboratory Tests Test 04/01/19 15:10 04/01/19 16:25 04/02/19 04:45 White Blood Count 9.0 x10^3/uL (4.0-11.0) 7.2 x10^3/uL (4.0-11.0) Red Blood Count 4.80 x10^6/uL (3.50-5.40) 4.27 x10^6/uL (3.50-5.40) Hemoglobin 14.7 g/dL (12.0-15.5) 13.3 g/dL (12.0-15.5) Hematocrit 43.0 % (36.0-47.0) 38.7 % (36.0-47.0) Mean Corpuscular Volume 90 fL (79-100) 91 fL (79-100) Mean Corpuscular Hemoglobin 31 pg (25-35) 31 pg (25-35) Mean Corpuscular Hemoglobin Concent 34 g/dL (31-37) 34 g/dL (31-37) Red Cell Distribution Width 13.8 % (11.5-14.5) 13.8 % (11.5-14.5) Platelet Count 344 x10^3/uL (140-400) 287 x10^3/uL (140-400) Neutrophils (%) (Auto) 62 % (31-73) 55 % (31-73) Lymphocytes (%) (Auto) 29 % (24-48) 35 % (24-48) Monocytes (%) (Auto) 7 % (0-9) 7 % (0-9) Eosinophils (%) (Auto) 2 % (0-3) 3 % (0-3) Basophils (%) (Auto) 1 % (0-3) 1 % (0-3) Neutrophils # (Auto) 5.6 x10^3uL (1.8-7.7) 4.0 x10^3uL (1.8-7.7) Lymphocytes # (Auto) 2.6 x10^3/uL (1.0-4.8) 2.5 x10^3/uL (1.0-4.8) Monocytes # (Auto) 0.6 x10^3/uL (0.0-1.1) 0.5 x10^3/uL (0.0-1.1) Eosinophils # (Auto) 0.2 x10^3/uL (0.0-0.7) 0.2 x10^3/uL (0.0-0.7) Basophils # (Auto) 0.1 x10^3/uL (0.0-0.2) 0.1 x10^3/uL (0.0-0.2) Sodium Level 141 mmol/L (136-145) 138 mmol/L (136-145) Potassium Level 3.3 mmol/L (3.5-5.1) 3.6 mmol/L (3.5-5.1) Chloride Level 104 mmol/L (98-107) 102 mmol/L (98-107) Carbon Dioxide Level 26 mmol/L (21-32) 24 mmol/L (21-32) Anion Gap 11 (6-14) 12 (6-14) Blood Urea Nitrogen 13 mg/dL (7-20) 13 mg/dL (7-20) Creatinine 0.7 mg/dL (0.6-1.0) 0.7 mg/dL (0.6-1.0) Estimated GFR (Cockcroft-Gault) 85.6 85.6 BUN/Creatinine Ratio 19 (6-20) 19 (6-20) Glucose Level 102 mg/dL (70-99) 102 mg/dL (70-99) Calcium Level 9.2 mg/dL (8.5-10.1) 9.1 mg/dL (8.5-10.1) Total Bilirubin 0.4 mg/dL (0.2-1.0) 0.4 mg/dL (0.2-1.0) Aspartate Amino Transf (AST/SGOT) 29 U/L (15-37) 20 U/L (15-37) Alanine Aminotransferase (ALT/SGPT) 40 U/L (14-59) 33 U/L (14-59) Alkaline Phosphatase 54 U/L (46-116) 47 U/L (46-116) Total Protein 7.2 g/dL (6.4-8.2) 6.4 g/dL (6.4-8.2) Albumin 3.9 g/dL (3.4-5.0) 3.4 g/dL (3.4-5.0) Albumin/Globulin Ratio 1.2 (1.0-1.7) 1.1 (1.0-1.7) Lipase 2409 U/L (73-393) 282 U/L (73-393) Urine Collection Type Unknown Urine Color Yellow Urine Clarity Clear Urine pH 7.0 Urine Specific [place] 1.015 Urine Protein Negative mg/dL (NEG-TRACE) Urine Glucose (UA) Negative mg/dL (NEG) Urine Ketones (Stick) Negative mg/dL (NEG) Urine Blood Negative (NEG) Urine Nitrite Negative (NEG) Urine Bilirubin Negative (NEG) Urine Urobilinogen Dipstick 1.0 mg/dL (0.2 mg/dL) Urine Leukocyte Esterase Negative (NEG) Urine RBC 0 /HPF (0-2) Urine WBC 0 /HPF (0-4) Urine Squamous Epithelial Cells Many /LPF Urine Bacteria Mod /HPF (0-FEW) Laboratory Tests Test 04/01/19 15:10 04/01/19 16:25 04/02/19 04:45 White Blood Count 9.0 x10^3/uL (4.0-11.0) 7.2 x10^3/uL (4.0-11.0) Red Blood Count 4.80 x10^6/uL (3.50-5.40) 4.27 x10^6/uL (3.50-5.40) Hemoglobin 14.7 g/dL (12.0-15.5) 13.3 g/dL (12.0-15.5) Hematocrit 43.0 % (36.0-47.0) 38.7 % (36.0-47.0) Mean Corpuscular Volume 90 fL (79-100) 91 fL (79-100) Mean Corpuscular Hemoglobin 31 pg (25-35) 31 pg (25-35) Mean Corpuscular Hemoglobin Concent 34 g/dL (31-37) 34 g/dL (31-37) Red Cell Distribution Width 13.8 % (11.5-14.5) 13.8 % (11.5-14.5) Platelet Count 344 x10^3/uL (140-400) 287 x10^3/uL (140-400) Neutrophils (%) (Auto) 62 % (31-73) 55 % (31-73) Lymphocytes (%) (Auto) 29 % (24-48) 35 % (24-48) Monocytes (%) (Auto) 7 % (0-9) 7 % (0-9) Eosinophils (%) (Auto) 2 % (0-3) 3 % (0-3) Basophils (%) (Auto) 1 % (0-3) 1 % (0-3) Neutrophils # (Auto) 5.6 x10^3uL (1.8-7.7) 4.0 x10^3uL (1.8-7.7) Lymphocytes # (Auto) 2.6 x10^3/uL (1.0-4.8) 2.5 x10^3/uL (1.0-4.8) Monocytes # (Auto) 0.6 x10^3/uL (0.0-1.1) 0.5 x10^3/uL (0.0-1.1) Eosinophils # (Auto) 0.2 x10^3/uL (0.0-0.7) 0.2 x10^3/uL (0.0-0.7) Basophils # (Auto) 0.1 x10^3/uL (0.0-0.2) 0.1 x10^3/uL (0.0-0.2) Sodium Level 141 mmol/L (136-145) 138 mmol/L (136-145) Potassium Level 3.3 mmol/L (3.5-5.1) 3.6 mmol/L (3.5-5.1) Chloride Level 104 mmol/L (98-107) 102 mmol/L (98-107) Carbon Dioxide Level 26 mmol/L (21-32) 24 mmol/L (21-32) Anion Gap 11 (6-14) 12 (6-14) Blood Urea Nitrogen 13 mg/dL (7-20) 13 mg/dL (7-20) Creatinine 0.7 mg/dL (0.6-1.0) 0.7 mg/dL (0.6-1.0) Estimated GFR (Cockcroft-Gault) 85.6 85.6 BUN/Creatinine Ratio 19 (6-20) 19 (6-20) Glucose Level 102 mg/dL (70-99) 102 mg/dL (70-99) Calcium Level 9.2 mg/dL (8.5-10.1) 9.1 mg/dL (8.5-10.1) Total Bilirubin 0.4 mg/dL (0.2-1.0) 0.4 mg/dL (0.2-1.0) Aspartate Amino Transf (AST/SGOT) 29 U/L (15-37) 20 U/L (15-37) Alanine Aminotransferase (ALT/SGPT) 40 U/L (14-59) 33 U/L (14-59) Alkaline Phosphatase 54 U/L (46-116) 47 U/L (46-116) Total Protein 7.2 g/dL (6.4-8.2) 6.4 g/dL (6.4-8.2) Albumin 3.9 g/dL (3.4-5.0) 3.4 g/dL (3.4-5.0) Albumin/Globulin Ratio 1.2 (1.0-1.7) 1.1 (1.0-1.7) Lipase 2409 U/L (73-393) 282 U/L (73-393) Urine Collection Type Unknown Urine Color Yellow Urine Clarity Clear Urine pH 7.0 Urine Specific [place] 1.015 Urine Protein Negative mg/dL (NEG-TRACE) Urine Glucose (UA) Negative mg/dL (NEG) Urine Ketones (Stick) Negative mg/dL (NEG) Urine Blood Negative (NEG) Urine Nitrite Negative (NEG) Urine Bilirubin Negative (NEG) Urine Urobilinogen Dipstick 1.0 mg/dL (0.2 mg/dL) Urine Leukocyte Esterase Negative (NEG) Urine RBC 0 /HPF (0-2) Urine WBC 0 /HPF (0-4) Urine Squamous Epithelial Cells Many /LPF Urine Bacteria Mod /HPF (0-FEW) Assessment/Plan Assessment/Plan right groin pain--PVD, stent in May, on plavix cholelithiasis, tolerating diet, no emesis, she does have pain on exam normal LFTS dilated CBD--will ask GI to comment can discuss jennifer surgery, however likely elective as plavix will need held for 5 days prior, no clinical indications of cholecystitis IR eval for groin pain AMELIA DAVIS MD 04/02/19 1331: CONSULT Assessment/Plan Assessment/Plan pt seen, interviewed and examined had to wake her from a sound sleep (didn't rest well last night) no acute surgical plans w/u per IPC and GI available if needed Dr Tolentino on for the weekend Thanks for consult JANICE OLSEN APRN April 02, 2019 08:36 AMELIA DAVIS MD April 02, 2019 13:31
--- NOTE | 2019-04-02 09:11 | PDOC ---
Provider Note Provider Note IR NOTE Right groin pain. SP right common iliac stenting for [employer] approximately 1 year ago. Left groin was site of access at that time. Arterial duplex shows normal triphasic waveforms in the proximal right thigh suggesting stent patency. CT wo contrast shows no overt cause for groin pain, and expected appearance of the stent. I feel her pain is unlikely related to the stent, or other acute vascular issue. NNAMDI MARTÍNEZ MD April 02, 2019 09:11
--- NOTE | 2019-04-02 09:29 | PDOC2 ---
GI CONSULT Reason For Consult: dilated CBD on US, cholelithiasis HPI: HPI: 58 y/o female evaluated in ER for acute onset of stabbing ("like a knife") right groin pain yesterday upon waking, worse throughout the day. H/o PAD w/ right common iliac stent in 2018 on Plavix - imaging shows patent stent, IR following and stent/vascular issue unlikely cause for pain. Labs noted lipase ~2409, normal today. Imaging also noted cholelithiasis w/ superimposed GB wall thickening, CBD dilatation (12mm), prominent downstream PD, and hepatic steatosis. Some discussion in the chart re: ERCP. She denies reflux/heartburn, dysphagia, n/v, abd pain, constipation, hematochezia, melena, or change in appetite. Had a couple loose stools yesterday. Has gained weight. No previous EGD or colonoscopy, but may have had a barium study ("I drank the concrete stuff") remotely (can't remember why). No GB, liver, or PUD history. Had pancreatitis in the past - says related to alcohol and current symptoms are nothing like what she experienced then. Does have some right flank "pressure" along w/ chronic lower back pain - takes hydrocodone PRN for this. No NSAIDs. PMH: PMH: KOBI (no CPAP), PAD, HLD, UTI, bipolar, schizophrenia, chronic back pain tubal ligation, appendectomy, tonsillectomy, back surgery x 2, right common iliac stent FH: Family History: No pertinent hx Social History: Smoke: <1 pack per day ALCOHOL: other (more heavily in the past; now 6-8 beers 3 times weekly) Drugs: None ROS: GEN: Denies fevers, chills, sweats HEENT: Denies blurred vision, sore throat CV: Denies chest pain RESP: Denies shortness of air, cough GI: Per HPI : Denies hematuria, dysuria ENDO: +weight gain NEURO: +chronic toe numbness RLE MSK: +chronic back pain SKIN: Denies jaundice, pruritus Vitals: Vitals: Vital Signs Date Time Temp Pulse Resp B/P (MAP) Pulse Ox O2 Delivery O2 Flow Rate FiO2 04/02/19 08:00 Room Air 04/02/19 07:00 97.5 78 18 153/78 (103) 95 97.5 Labs: Labs: Laboratory Tests Test 04/01/19 15:10 04/01/19 16:25 04/02/19 04:45 White Blood Count 9.0 x10^3/uL (4.0-11.0) 7.2 x10^3/uL (4.0-11.0) Red Blood Count 4.80 x10^6/uL (3.50-5.40) 4.27 x10^6/uL (3.50-5.40) Hemoglobin 14.7 g/dL (12.0-15.5) 13.3 g/dL (12.0-15.5) Hematocrit 43.0 % (36.0-47.0) 38.7 % (36.0-47.0) Mean Corpuscular Volume 90 fL (79-100) 91 fL (79-100) Mean Corpuscular Hemoglobin 31 pg (25-35) 31 pg (25-35) Mean Corpuscular Hemoglobin Concent 34 g/dL (31-37) 34 g/dL (31-37) Red Cell Distribution Width 13.8 % (11.5-14.5) 13.8 % (11.5-14.5) Platelet Count 344 x10^3/uL (140-400) 287 x10^3/uL (140-400) Neutrophils (%) (Auto) 62 % (31-73) 55 % (31-73) Lymphocytes (%) (Auto) 29 % (24-48) 35 % (24-48) Monocytes (%) (Auto) 7 % (0-9) 7 % (0-9) Eosinophils (%) (Auto) 2 % (0-3) 3 % (0-3) Basophils (%) (Auto) 1 % (0-3) 1 % (0-3) Neutrophils # (Auto) 5.6 x10^3uL (1.8-7.7) 4.0 x10^3uL (1.8-7.7) Lymphocytes # (Auto) 2.6 x10^3/uL (1.0-4.8) 2.5 x10^3/uL (1.0-4.8) Monocytes # (Auto) 0.6 x10^3/uL (0.0-1.1) 0.5 x10^3/uL (0.0-1.1) Eosinophils # (Auto) 0.2 x10^3/uL (0.0-0.7) 0.2 x10^3/uL (0.0-0.7) Basophils # (Auto) 0.1 x10^3/uL (0.0-0.2) 0.1 x10^3/uL (0.0-0.2) Sodium Level 141 mmol/L (136-145) 138 mmol/L (136-145) Potassium Level 3.3 mmol/L (3.5-5.1) 3.6 mmol/L (3.5-5.1) Chloride Level 104 mmol/L (98-107) 102 mmol/L (98-107) Carbon Dioxide Level 26 mmol/L (21-32) 24 mmol/L (21-32) Anion Gap 11 (6-14) 12 (6-14) Blood Urea Nitrogen 13 mg/dL (7-20) 13 mg/dL (7-20) Creatinine 0.7 mg/dL (0.6-1.0) 0.7 mg/dL (0.6-1.0) Estimated GFR (Cockcroft-Gault) 85.6 85.6 BUN/Creatinine Ratio 19 (6-20) 19 (6-20) Glucose Level 102 mg/dL (70-99) 102 mg/dL (70-99) Calcium Level 9.2 mg/dL (8.5-10.1) 9.1 mg/dL (8.5-10.1) Total Bilirubin 0.4 mg/dL (0.2-1.0) 0.4 mg/dL (0.2-1.0) Aspartate Amino Transf (AST/SGOT) 29 U/L (15-37) 20 U/L (15-37) Alanine Aminotransferase (ALT/SGPT) 40 U/L (14-59) 33 U/L (14-59) Alkaline Phosphatase 54 U/L (46-116) 47 U/L (46-116) Total Protein 7.2 g/dL (6.4-8.2) 6.4 g/dL (6.4-8.2) Albumin 3.9 g/dL (3.4-5.0) 3.4 g/dL (3.4-5.0) Albumin/Globulin Ratio 1.2 (1.0-1.7) 1.1 (1.0-1.7) Lipase 2409 U/L (73-393) 282 U/L (73-393) Urine Collection Type Unknown Urine Color Yellow Urine Clarity Clear Urine pH 7.0 Urine Specific [place] 1.015 Urine Protein Negative mg/dL (NEG-TRACE) Urine Glucose (UA) Negative mg/dL (NEG) Urine Ketones (Stick) Negative mg/dL (NEG) Urine Blood Negative (NEG) Urine Nitrite Negative (NEG) Urine Bilirubin Negative (NEG) Urine Urobilinogen Dipstick 1.0 mg/dL (0.2 mg/dL) Urine Leukocyte Esterase Negative (NEG) Urine RBC 0 /HPF (0-2) Urine WBC 0 /HPF (0-4) Urine Squamous Epithelial Cells Many /LPF Urine Bacteria Mod /HPF (0-FEW) Allergies: Coded Allergies: No Known Drug Allergies (Unverified , 12/15/13) Medications: Current Medications Medications (Trade) Dose Ordered Sig/Rosa Route PRN Reason Start Time Stop Time Status Last Admin Dose Admin Morphine Sulfate (Morphine Sulfate) 5 mg 1X ONCE IM 04/01/19 12:30 04/01/19 12:31 DC 04/01/19 12:50 Ondansetron HCl (Zofran Odt) 4 mg 1X ONCE PO 04/01/19 12:30 04/01/19 12:31 DC 04/01/19 12:46 Ondansetron HCl (Zofran Odt) 4 mg 1X ONCE PO 04/01/19 14:00 04/01/19 14:01 DC 04/01/19 14:06 Metronidazole 100 ml @ 100 mls/hr 1X ONCE IV 04/01/19 17:45 04/01/19 18:44 DC 04/01/19 21:05 Piperacillin Sod/ Tazobactam Sod 3.375 gm/Sodium Chloride 50 ml @ 100 mls/hr 1X ONCE IV 04/01/19 17:45 04/01/19 18:14 DC 04/01/19 17:57 Fentanyl Citrate (Fentanyl 2ml Vial) 50 mcg 1X ONCE IV 04/01/19 18:00 04/01/19 18:01 DC 04/01/19 18:20 Fentanyl Citrate (Fentanyl 2ml Vial) 50 mcg PRN Q1HR PRN IV PAIN 04/01/19 18:00 04/02/19 17:59 04/02/19 07:09 Alprazolam (Xanax) 1 mg PRN TID PRN PO ANXIETY / AGITATION 04/02/19 01:00 04/02/19 01:11 Imaging: Imaging: RLE US IMPRESSION: Atherosclerotic changes with monophasic waveforms in the runoff arteries in the calf. No evidence of occlusion or critical stenosis. Impression: Negative for deep venous thrombosis. CT A/P w/o contrast IMPRESSION: 1. No evidence of acute findings in the abdomen or pelvis. 2. Appendix is not visualized. No fluid or inflammatory type changes in the right lower quadrant. Abd US IMPRESSION: 1. Cholelithiasis. There is superimposed gallbladder wall thickening which may be due to intrinsic liver disease or cholecystitis. Correlate with symptomatology. 2. Common bile duct dilatation and prominent downstream pancreatic duct. ERCP or MRCP may be useful if there is concern for a sonographically occult obstructing etiology. 3. Hepatic steatosis. 4. Limited exam due to body habitus and bowel gas. PE: GEN: NAD HEENT: Atraumatic, PERRL LUNGS: CTAB HEART: RRR ABD: NABS, S/ND/NT - does have right flank discomfort EXTREMITY: No edema SKIN: very joe NEURO/PSYCH: A & O 3, tearful at one point telling me about psych issues and how she cares for animals A/P: A/P: Right groin pain, right flank pain H/o PAD w/ right common iliac stent on Plavix Elevated lipase - resolved Cholelithiasis, dilated CBD and PD, hepatic steatosis H/o pancreatitis, heavy alcohol use CRC screen - none Chronic back pain -- Would not pursue ERCP at this time. Did attempt to order MRCP, was told could not be done as inpt. Reviewed w/ Dr. Giron - check CA19-9, try diet, monitor. JHONY HOANG April 02, 2019 09:29
[2019-04-02 11:00] VITALS: BP 136/87
[2019-04-02 14:50] VITALS: BP 121/69
[2019-04-02] MEDS: oxyCODONE/APAP 5/325 1 TAB TABLET PO PRN (17:54)
[2019-04-02 19:00] VITALS: BP 142/72
[2019-04-02] MEDS ORDERED: ATORVASTATIN CALCIUM 40 MG TABLET. PO SCH (21:00)
[2019-04-02 22:53] VITALS: BP 144/91
[2019-04-03 03:00] VITALS: BP 136/78
[2019-04-03] MEDS: oxyCODONE/APAP 5/325 1 TAB TABLET PO PRN (03:35)
[2019-04-03 05:03] LABS: HEMATOCRIT 41.7 % (36.0-47.0); HEMOGLOBIN 13.9 g/dL (12.0-15.5); RED BLOOD COUNT 4.62 x10^6/uL (3.50-5.40); RED CELL DISTRIBUTION WIDTH 13.6 % (11.5-14.5); WHITE BLOOD COUNT 6.4 x10^3/uL (4.0-11.0)
[2019-04-03 05:33] LABS: ALBUMIN 3.6 g/dL (3.4-5.0); ALBUMIN/GLOBULIN RATIO 1.1 (1.0-1.7); CALCIUM 9.3 mg/dL (8.5-10.1); CREATININE 0.7 mg/dL (0.6-1.0); GFR 85.6; POTASSIUM 4.2 mmol/L (3.5-5.1); TOTAL BILIRUBIN 0.4 mg/dL (0.2-1.0); TOTAL PROTEIN 6.8 g/dL (6.4-8.2)
[2019-04-03 07:00] VITALS: BP 127/88
[2019-04-03] MEDS: CLOPIDOGREL BISULFATE 75 MG TABLET PO SCH (08:00)
[2019-04-03] MEDS: OMEGA-3 FATTY ACIDS/FISH OIL 1,000 MG CAPSULE. PO SCH (08:46)
[2019-04-03] MEDS: FENOFIBRATE 54 MG TABLET. PO SCH (08:46)
--- NOTE | 2019-04-03 09:00 | NUR ---
PLAVIX HELD PER THIS ENVIRONMENTAL CONSULTANT DUE TO REPORT FROM NIGHT NURSE, PATIENT IS TO HAVE PLAVIX HELD FOR 5 DAYS PRIOR TO SURGERY, PATIENT AGREED AND DID NOT TAKE THE MEDICATION.
[2019-04-03 11:00] VITALS: BP 144/77
[2019-04-03] MEDS ORDERED: METH4TAB2 PO (13:38)
--- NOTE | 2019-04-03 13:47 | PDOC3 ---
Discharge Summary [facility] Date of Admission: April 01, 2019 Discharge Date: April 03, 2019 Admitting Diagnosis abdominal pain Final Diagnosis Problems Medical Problems: (1) Abdominal pain Status: Acute (2) Cholelithiasis Status: Acute Brief Hospital Course Ms. Aj is a 58 old who presented with right lower quadrant abdominal pain, right inguinal pain and right flank pain, it was determined her flank pain is from her gllbladder which she will electively have removed next week after she is off Plavix for a total of 5 days. Her RLQ pain is presumed to be from a groin strain and will be treated with a Medrol dose pack, no RLQ abnormalities were noted on imaging studies although to appendix wasn't visualized. Initially she had an elevated lipase but it returned to normal and there was no imaging evidence for pancreatitis so it was presumed that she passed a gallstone. Her right iliac stent was noted to be in place and there was no evidence for it being obstructed Patient History: Family history: Angina (situation) 32 MOTHER Family history: Cardiovascular disease (situation) 32 MOTHER Family history: Diabetes mellitus (situation) 32 MOTHER Family history: Hypertension (situation) 32 MOTHER Family history: Obesity (situation) 32 MOTHER Disposition home CONDITION AT DISCHARGE: Improved, Stable Diet low fat Scheduled Atorvastatin Calcium (Atorvastatin Calcium), 40 MG PO QHS Fenofibrate (Fenofibrate), 54 MG PO DAILY Methylprednisolone (Medrol), 1 PKG PO UD Scheduled PRN Alprazolam (Alprazolam), 1 TAB PO PRN TID PRN for ANXIETY / AGITATION, (Reported) Discontinued Medications Clopidogrel Bisulfate (Clopidogrel), 75 MG PO DAILYWBKFT [place]-3 Fatty Acids/Fish Oil (Fish Oil 1,000 Mg Capsule), 1,000 MG PO DAILY Follow Up later this week for lap jennifer Patient Instructions she has pain meds at home. she will continue to hold Plavix until her lap jennifer, she may need an MRCP as outpatient prior to surgery Patrick BLANCO MD April 03, 2019 13:47
--- NOTE | 2019-04-03 14:40 | NUR ---
DISCHARGE INSTRUCTIONS GIVEN, QUESTIONS AND CONCERNS ANSWERED, PATIENT VERBALIZED UNDERSTANDING OF DISCHARGE INFORMATION INCLUDING TAKING ALL MEDICATIONS INSTRUCTED AND FOLLOWING UP WITH HER PRIMARY PROVIDER, DR. JOEL AND DR. LEY INSTRUCTED. PATIENT ENCOURAGED TO NOT TAKE PLAVIX UNTIL AFTER HER SURGERY OR INSTRUCTED BY THE MD. ALL PERSONAL BELONGINGS GATHERED BY THE PATIENT AND PLACED IN BAGS FOR DISCHARGE.
--- NOTE | 2019-04-03 14:50 | NUR ---
PATIENT LEAVES THE UNIT PER W/C ACCOMPANIED BY THIS ACCESS SERVICES REPRESENTATIVE AND HER SPOUSE, FOLLOW UP APPOINTMENTS ENCOURAGED, EMOTIONAL SUPPORT GIVEN.
[2019-04-20] MEDS ORDERED: HYDR-3164 PO (12:38)
[2019-04-20] MEDS ORDERED: DOCU-109 PO (12:39)
== END 2019-04-03 14:50 | disposition home or self-care (01) | DRG 445 ==
LOC: ER 11:02 → OBSVTOIN 18:00 → 5 NORTH 18:00
PROVIDERS: ADMIT Family Medicine; ATTEND Family Medicine
DX: K80.10 Calculus of gallbladder with chronic cholecystitis without obstruction (principal); R65.10 Systemic inflammatory response syndrome (SIRS) of non-infectious origin without acute organ dysfunction; E78.00 Pure hypercholesterolemia, unspecified; E78.5 Hyperlipidemia, unspecified; E87.6 Hypokalemia; F17.210 Nicotine dependence, cigarettes, uncomplicated; F20.9 Schizophrenia, unspecified; F31.9 Bipolar disorder, unspecified; F41.9 Anxiety disorder, unspecified; F43.10 Post-traumatic stress disorder, unspecified; G47.33 Obstructive sleep apnea (adult) (pediatric); G89.29 Other chronic pain; I10 Essential (primary) hypertension; F12.90 Cannabis use, unspecified, uncomplicated; I73.9 Peripheral vascular disease, unspecified; K76.0 Fatty (change of) liver, not elsewhere classified; Z79.02 Long term (current) use of antithrombotics/antiplatelets; Z82.49 Family history of ischemic heart disease and other diseases of the circulatory system; Z83.3 Family history of diabetes mellitus; Z90.49 Acquired absence of other specified parts of digestive tract; Z98.51 Tubal ligation status; Z87.440 Personal history of urinary (tract) infections
CPT/HCPCS: 36415; 74176; 76700; 80053; 81001; 83690; 85025; 85027; 86301; 93926; 93971; 96365; 96372; 96375; 99406; J2270; J2543; J3010; J3490; Q0162; 99285-25

== ENCOUNTER 2019-04-21 10:48 | Emergency (ER) | payer OTHER ==
[~2019-04-21] VITALS: Ht 167.6 cm; Wt 94.3 kg
[~2019-04-21 10:48] MED LIST changes: +DOCU-109 PO; +HYDR-3164 PO; +METH4TAB2 PO; -PANT40TA3 PO; +PANT40TA77 PO
[2019-04-21] MEDS ORDERED: IV NORMAL SALINE 1000ML BAG 1,000 ML IV SCH (11:12)
[2019-04-21] MEDS ORDERED: ONDANSETRON PF 4 MG/2 ML VIAL. IV ONE (11:15)
--- NOTE | 2019-04-21 11:18 | PHYS DOC ---
Past Medical History Past Medical History: Anxiety, Bipolar, Depression, High Cholesterol, Schizophrenia, Other Additional Past Medical Histor: PTSD,AGOROPHOBIA Past Surgical History: Appendectomy, Cholecystectomy, Tonsillectomy, Other Additional Past Surgical Histo: EYE SX, BACK,CARPAL TUNNEL Smoking: Cigarettes Alcohol Use: Occasionally Drug Use: Marijuana Adult General Chief Complaint Chief Complaint: POST-OP PROBLEM HPI HPI Patient is a 58-year-old female who presents to the emergency department for evaluation. She underwent a laparoscopic cholecystectomy yesterday, and states that last night, she reached for something on her nightstand, and felt a tearing sensation in one of her laparoscopic incisions, and since then has had gradually worsening pain in her abdomen, primarily in her right upper quadrant. She does complain of incisional tenderness, as well as generalized right upper quadrant pain. She has not had any fevers, chills, nausea, vomiting, diarrhea, chest pain or shortness of breath. There are no alleviating, or exacerbating factors to her symptoms otherwise. Review of Systems Review of Systems Constitutional: Denies fever or chills [] Eyes: Denies change in visual acuity, redness, or eye pain [] HENT: Denies nasal congestion or sore throat [] Respiratory: Denies cough or shortness of breath [] Cardiovascular: The patient denies any shortness of breath, chest pain, palpitations, or orthopnea [] GI: Denies nausea, vomiting, bloody stools or diarrhea [] : Denies dysuria or hematuria [] Musculoskeletal: Denies back pain or joint pain [] Integument: Denies rash or skin lesions [] Neurologic: Denies headache, focal weakness or sensory changes [] Endocrine: Denies polyuria or polydipsia [] All other systems were reviewed and found to be within normal limits, except as documented in this note. Current Medications Current Medications Current Medications Medications (Trade) Dose Ordered Sig/Rosa Start Time Stop Time Status Last Admin Dose Admin Info (CONTRAST GIVEN -- Rx MONITORING) 1 each PRN DAILY PRN 04/21/19 12:30 04/23/19 12:29 Iohexol (Omnipaque 300 Mg/ml) 75 ml 1X ONCE 04/21/19 12:15 04/21/19 12:24 DC 04/21/19 12:23 75 ML Ketorolac Tromethamine (Toradol 30mg Vial) 30 mg 1X ONCE 04/21/19 13:30 04/21/19 13:31 Morphine Sulfate (Morphine Sulfate) 4 mg PRN Q15MIN PRN 04/21/19 11:15 04/22/19 11:14 04/21/19 13:15 4 MG Ondansetron HCl (Zofran) 4 mg 1X ONCE 04/21/19 11:15 04/21/19 11:18 DC 04/21/19 12:02 4 MG Sodium Chloride 1,000 ml @ 1,000 mls/hr Q1H 04/21/19 11:12 04/21/19 12:11 DC 04/21/19 12:02 1,000 MLS/HR Allergies Allergies Allergies Coded Allergies Type Severity Reaction Last Updated Verified No Known Medication Allergies Allergy Unknown 04/20/19 Yes Uncoded Allergies Type Severity Reaction Last Updated Verified TIDE Allergy Unknown 04/13/19 Physical Exam Physical Exam PHYSICAL EXAM: CONSTITUTIONAL: Well developed, well nourished HEAD: normocephalic, atraumatic EENT: PERRL, EOMI. Conjunctivae normal color, sclerae non-icteric; moist mucous membranes. NECK: Supple, non-tender; no meningismus. LUNGS: Lungs CTA, breathing even and unlabored. Normal air movement. HEART: Regular rate and rhythm, no murmur CHEST: No deformity; non-tender ABDOMEN: The abdomen is soft, there is tenderness to palpation in the right upper quadrant diffusely, without rebound or guarding. The remainder the abdomen is soft and nontender. There are clean appearing laparoscopy incisions. Bowel sounds are present. No masses or bruits. EXTREM: Normal ROM; no deformity, no calf tenderness. Normal pulses palpable in all extremities. There is no pedal edema. SKIN: No rash; no diaphoresis NEURO: Alert; normal speech and cognition; CN's grossly intact; strength grossly intact without focal deficit. BACK: No CVA TTP. Current Patient Data Vital Signs Vital Signs Date Time Temp Pulse Resp B/P (MAP) Pulse Ox O2 Delivery O2 Flow Rate FiO2 04/21/19 11:36 169/80 (109) 04/21/19 11:10 97.7 87 16 91 Room Air 97.7 Lab Values Laboratory Tests Test 04/21/19 11:35 White Blood Count 12.1 x10^3/uL (4.0-11.0) H Red Blood Count 4.65 x10^6/uL (3.50-5.40) Hemoglobin 14.0 g/dL (12.0-15.5) Hematocrit 41.6 % (36.0-47.0) Mean Corpuscular Volume 90 fL (79-100) Mean Corpuscular Hemoglobin 30 pg (25-35) Mean Corpuscular Hemoglobin Concent 34 g/dL (31-37) Red Cell Distribution Width 14.0 % (11.5-14.5) Platelet Count 326 x10^3/uL (140-400) Neutrophils (%) (Auto) 74 % (31-73) H Lymphocytes (%) (Auto) 19 % (24-48) L Monocytes (%) (Auto) 6 % (0-9) Eosinophils (%) (Auto) 0 % (0-3) Basophils (%) (Auto) 1 % (0-3) Neutrophils # (Auto) 8.9 x10^3uL (1.8-7.7) H Lymphocytes # (Auto) 2.3 x10^3/uL (1.0-4.8) Monocytes # (Auto) 0.7 x10^3/uL (0.0-1.1) Eosinophils # (Auto) 0.1 x10^3/uL (0.0-0.7) Basophils # (Auto) 0.1 x10^3/uL (0.0-0.2) Urine Collection Type Unknown Urine Color Yellow Urine Clarity Clear Urine pH 5.5 Urine Specific [place] 1.010 Urine Protein 30 mg/dL (NEG-TRACE) Urine Glucose (UA) Negative mg/dL (NEG) Urine Ketones (Stick) Negative mg/dL (NEG) Urine Blood Negative (NEG) Urine Nitrite Negative (NEG) Urine Bilirubin Negative (NEG) Urine Urobilinogen Dipstick 0.2 mg/dL (0.2 mg/dL) Urine Leukocyte Esterase Negative (NEG) Urine RBC 0 /HPF (0-2) Urine WBC 0 /HPF (0-4) Urine Squamous Epithelial Cells Few /LPF Urine Bacteria 0 /HPF (0-FEW) Sodium Level 141 mmol/L (136-145) Potassium Level 3.8 mmol/L (3.5-5.1) Chloride Level 104 mmol/L (98-107) Carbon Dioxide Level 21 mmol/L (21-32) Anion Gap 16 (6-14) H Blood Urea Nitrogen 8 mg/dL (7-20) Creatinine 0.6 mg/dL (0.6-1.0) Estimated GFR (Cockcroft-Gault) 102.3 BUN/Creatinine Ratio 13 (6-20) Glucose Level 109 mg/dL (70-99) H Calcium Level 10.1 mg/dL (8.5-10.1) Total Bilirubin 0.4 mg/dL (0.2-1.0) Aspartate Amino Transferase (AST) 26 U/L (15-37) Alanine Aminotransferase (ALT) 37 U/L (14-59) Alkaline Phosphatase 56 U/L (46-116) Total Protein 7.3 g/dL (6.4-8.2) Albumin 4.0 g/dL (3.4-5.0) Albumin/Globulin Ratio 1.2 (1.0-1.7) Lipase 146 U/L (73-393) Laboratory Tests 04/21/19 11:35 Laboratory Tests 04/21/19 11:35 EKG EKG [] Radiology/Procedures Radiology/Procedures [PROCEDURE: CT ABD PELV W/ IV CONTRST ONLY CT study of the abdomen and pelvis with contrast Clinical indications: Severe right upper quadrant pain. Status post laparoscopic cholecystectomy. TECHNIQUE: After IV infusion of 75 cc of Omnipaque 300, helical CT scanning of the abdomen and pelvis were performed. No GI contrast was administered. PQRS compliance Statement One or more of the following individualized dose reduction techniques were utilized for this study: 1. Automated exposure control 2. Adjustment of the mA and/or kV according to patient size 3. Use of iterative reconstruction technique COMPARISON: April 01, 2019. FINDINGS: The gallbladder is now surgically absent. No significant fluid collection is seen within the gallbladder fossa. There is dilatation of the extrahepatic bile duct. The common bile duct measures 10 mm in caliber within the head of the pancreas. Previous sonogram performed on April 01, 2019 demonstrated the common bile duct measurement of 12 mm. It is unchanged from the previous CT study as well. Main pancreatic duct is visualized but is not abnormally dilated measuring less than 3 mm. Pancreas is unremarkable otherwise. The adrenal glands are normal. Both kidneys are normal without hydronephrosis or hydroureter. Urinary bladder is not abnormally distended. No uterine mass is seen. No dominant ovarian cyst or mass is evident. Sigmoid diverticulosis is seen without diverticulitis. The appendix is not visualized. There is no secondary CT findings of appendicitis however. Terminal ileum is unremarkable. No obstructive bowel pattern is evident. No free air or free fluid or mesenteric edema is evident. No lung base consolidation is evident. No lytic process. IMPRESSION: Gallbladder is now surgically absent. No abnormal fluid collection is seen within the gallbladder fossa. There is chronic dilatation of the extra hepatic biliary tree. This could be secondary to reservoir effect after cholecystectomy. Correlation with liver function tests and pancreatic enzymes is recommended. No other acute abnormality of the abdomen and pelvis.] Course & Med Decision Making Course & Med Decision Making Pertinent Labs and Imaging studies reviewed. (See chart for details) []1:30 PM: The patient's condition remained stable. She is feeling somewhat better at this point. I suspect she is having postoperative incisional pain. Her incisions appear clean. I spoke with Dr. Bell, who sent the patient to the emergency department for evaluation from his office, and he agrees with changing her pain medication from [place] to oxycodone. I discussed test results with the patient, the need for close follow-up and return precautions in detail. Dragon Disclaimer Dragon Disclaimer This electronic medical record was generated, in whole or in part, using a voice recognition dictation system. Departure Departure Impression: Primary Impression: Postoperative abdominal pain Disposition: 01 HOME, SELF-CARE Condition: STABLE Referrals: LETHA WONG MD (PCP) AMELIA DAVIS MD Patient Instructions: Pain Relief Preoperatively and Postoperatively Scripts Oxycodone/Apap 5-325 (PERCOCET 5-325 MG TABLET ) 1 Each Tablet 1 TAB PO PRN Q6HRS PRN for PAIN, #15 TAB 0 Refills Prov: DERRICK ACEVEDO MD 04/21/19 DERRICK ACEVEDO MD April 21, 2019 11:18
[2019-04-21 11:50] LABS: BASO # 0.1 x10^3/uL (0.0-0.2); BASO % 1 % (0-3); EOS # 0.1 x10^3/uL (0.0-0.7); EOS % 0 % (0-3); HEMATOCRIT 41.6 % (36.0-47.0); LYMPH # 2.3 x10^3/uL (1.0-4.8); LYMPH % 19 % (24-48); MEAN CORPUSCULAR HEMOGLOBIN 30 pg (25-35); MEAN CORPUSCULAR HGB CONC 34 g/dL (31-37); MEAN CORPUSCULAR VOLUME 90 fL (79-100); MONO # 0.7 x10^3/uL (0.0-1.1); MONO % 6 % (0-9); NEUT # 8.9 x10^3uL (1.8-7.7); NEUT % 74 % (31-73); PLATELET COUNT 326 x10^3/uL (140-400); RED BLOOD COUNT 4.65 x10^6/uL (3.50-5.40); WHITE BLOOD COUNT 12.1 x10^3/uL (4.0-11.0)
[2019-04-21 11:57] LABS: BILIRUBIN,URINE NEGATIVE (NEG); CLARITY,URINE CLEAR; COLOR,URINE YELLOW; NITRITE,URINE NEGATIVE (NEG); PH,URINE 5.5; PROTEIN,URINE 30 mg/dL (NEG-TRACE); UROBILINOGEN,URINE 0.2 mg/dL (0.2 mg/dL)
[2019-04-21 12:03] LABS: CALCIUM 10.1 mg/dL (8.5-10.1); CREATININE 0.6 mg/dL (0.6-1.0); GFR 102.3; POTASSIUM 3.8 mmol/L (3.5-5.1)
[2019-04-21] MEDS: MORPHINE SULFATE 4 MG/ML VIAL. IV/SQ PRN ×3 (12:03→13:15)
[2019-04-21 12:06] LABS: BACTERIA,URINE 0 /HPF (0-FEW); RBC,URINE 0 /HPF (0-2); SQUAMOUS EPITHELIAL CELL,UR FEW /LPF; WBC,URINE 0 /HPF (0-4)
[2019-04-21 12:09] LABS: ALBUMIN/GLOBULIN RATIO 1.2 (1.0-1.7); TOTAL BILIRUBIN 0.4 mg/dL (0.2-1.0); TOTAL PROTEIN 7.3 g/dL (6.4-8.2)
[2019-04-21] MEDS ORDERED: IOHEXOL 300 MG/ML 100ML VIAL. IV ONE (12:15)
[2019-04-21] MEDS ORDERED: CONTRAST GIVEN. MC PRN (12:30)
[2019-04-21 13:01] VITALS: BP 154/70
--- NOTE | 2019-04-21 13:05 | RAD ---
CT study of the abdomen and pelvis with contrast Clinical indications: Severe right upper quadrant pain. Status post laparoscopic cholecystectomy. TECHNIQUE: After IV infusion of 75 cc of Omnipaque 300, helical CT scanning of the abdomen and pelvis were performed. No GI contrast was administered. PQRS compliance Statement One or more of the following individualized dose reduction techniques were utilized for this study: 1. Automated exposure control 2. Adjustment of the mA and/or kV according to patient size 3. Use of iterative reconstruction technique COMPARISON: April 01, 2019. FINDINGS: The gallbladder is now surgically absent. No significant fluid collection is seen within the gallbladder fossa. There is dilatation of the extrahepatic bile duct. The common bile duct measures 10 mm in caliber within the head of the pancreas. Previous sonogram performed on April 01, 2019 demonstrated the common bile duct measurement of 12 mm. It is unchanged from the previous CT study as well. Main pancreatic duct is visualized but is not abnormally dilated measuring less than 3 mm. Pancreas is unremarkable otherwise. The adrenal glands are normal. Both kidneys are normal without hydronephrosis or hydroureter. Urinary bladder is not abnormally distended. No uterine mass is seen. No dominant ovarian cyst or mass is evident. Sigmoid diverticulosis is seen without diverticulitis. The appendix is not visualized. There is no secondary CT findings of appendicitis however. Terminal ileum is unremarkable. No obstructive bowel pattern is evident. No free air or free fluid or mesenteric edema is evident. No lung base consolidation is evident. No lytic process. IMPRESSION: Gallbladder is now surgically absent. No abnormal fluid collection is seen within the gallbladder fossa. There is chronic dilatation of the extra hepatic biliary tree. This could be secondary to reservoir effect after cholecystectomy. Correlation with liver function tests and pancreatic enzymes is recommended. No other acute abnormality of the abdomen and pelvis. Electronically signed by: Mateusz Sanchez MD (04/21/2019 1:02 PM) [id number]
[2019-04-21] MEDS ORDERED: OXYC1TAB15 PO (13:30)
[2019-04-21] MEDS ORDERED: KETOROLAC 30 MG/ML VIAL. IV ONE (13:30)
[2019-05-23] MEDS ORDERED: CLOP75TA PO (00:14)
[2019-05-24] MEDS ORDERED: PRED20TA PO (08:43)
[2019-05-24] MEDS ORDERED: ATORVASTATIN CA80 MG PO (08:43)
[2019-05-24] MEDS ORDERED: FENO134C PO (08:43)
== END 2019-04-21 13:50 | disposition home or self-care (01) ==
LOC: ER 10:48
DX: G89.18 Other acute postprocedural pain (principal); R10.11 Right upper quadrant pain; R10.84 Generalized abdominal pain; F17.210 Nicotine dependence, cigarettes, uncomplicated; E78.00 Pure hypercholesterolemia, unspecified; F31.9 Bipolar disorder, unspecified; F43.10 Post-traumatic stress disorder, unspecified; F20.9 Schizophrenia, unspecified; F41.9 Anxiety disorder, unspecified; Z90.49 Acquired absence of other specified parts of digestive tract; Z90.89 Acquired absence of other organs; Z88.8 Allergy status to other drugs, medicaments and biological substances
CPT/HCPCS: 36415; 74177; 80053; 81001; 83690; 85025; 96374; 96375; 96376; 99285; J2270; J2405; J7030; Q9967

== ENCOUNTER 2019-04-27 21:19 | Emergency (ER) | payer MEDICAID, OTHER ==
[~2019-04-27] VITALS: Ht 160 cm; Wt 94.3 kg
[~2019-04-27 21:19] MED LIST changes: +OXYC1TAB15 PO; +PANT40TA3 PO; -PANT40TA77 PO
[2019-04-27 22:22] LABS: BASO # 0.1 x10^3/uL (0.0-0.2); BASO % 1 % (0-3); EOS # 0.5 x10^3/uL (0.0-0.7); EOS % 5 % (0-3); HEMATOCRIT 44.1 % (36.0-47.0); HEMOGLOBIN 15.5 g/dL (12.0-15.5); LYMPH # 3.7 x10^3/uL (1.0-4.8); LYMPH % 34 % (24-48); MEAN CORPUSCULAR HEMOGLOBIN 31 pg (25-35); MEAN CORPUSCULAR HGB CONC 35 g/dL (31-37); MEAN CORPUSCULAR VOLUME 89 fL (79-100); MONO # 0.6 x10^3/uL (0.0-1.1); MONO % 6 % (0-9); NEUT # 5.8 x10^3uL (1.8-7.7); NEUT % 54 % (31-73); PLATELET COUNT 393 x10^3/uL (140-400); RED BLOOD COUNT 4.95 x10^6/uL (3.50-5.40); RED CELL DISTRIBUTION WIDTH 14.1 % (11.5-14.5); WHITE BLOOD COUNT 10.8 x10^3/uL (4.0-11.0)
[2019-04-27] MEDS ORDERED: HYDROmorphone 2 MG/ML VIAL IV ONE (22:30)
[2019-04-27] MEDS ORDERED: ONDANSETRON PF 4 MG/2 ML VIAL. IM ONE (22:30)
[2019-04-27] MEDS ORDERED: IOHEXOL 300 MG/ML 100ML VIAL. ONE (22:48)
[2019-04-27 22:59] LABS: CALCIUM 9.6 mg/dL (8.5-10.1); CREATININE 0.8 mg/dL (0.6-1.0); GFR 73.4; POTASSIUM 3.8 mmol/L (3.5-5.1)
[2019-04-27] MEDS ORDERED: CONTRAST GIVEN. MC PRN (23:00)
[2019-04-27] MEDS ORDERED: IOHEXOL 300 MG/ML 100ML VIAL. IV ONE (23:00)
[2019-04-27 23:05] LABS: ALBUMIN/GLOBULIN RATIO 1.1 (1.0-1.7); TOTAL BILIRUBIN 0.4 mg/dL (0.2-1.0); TOTAL PROTEIN 7.5 g/dL (6.4-8.2)
--- NOTE | 2019-04-27 23:43 | PHYS DOC ---
Past Medical History Past Medical History: Anxiety, Bipolar, Depression, High Cholesterol, Schizophrenia, Other Additional Past Medical Histor: PTSD,AGOROPHOBIA, djd Past Surgical History: Appendectomy, Cholecystectomy, Tonsillectomy, Other Additional Past Surgical Histo: EYE SX, BACK,CARPAL TUNNEL Alcohol Use: Occasionally Drug Use: Marijuana Adult General Chief Complaint Chief Complaint: ABDOMINAL PAIN HPI HPI Patient is a 58 year old female who is one week status post laparoscopic cholecystectomy per Dr. Concepcion who presents with acute onset right upper quadrant pain starting approximately 1 hour prior to ED arrival. It is to described as sharp, nonradiating and is rated 10 out of 10. It is worse with palpation and movement. Patient denies injury lifting or straining activity prior to symptom onset. Reports nausea without vomiting. No fever chills or sweats. No flank pain, back pain, urinary frequency urgency. No diarrhea. No other acute symptoms or complaints. [] Review of Systems Review of Systems ROS as per HPI All other systems were reviewed and found to be within normal limits, except as documented in this note. Current Medications Current Medications Current Medications Medications (Trade) Dose Ordered Sig/Rosa Start Time Stop Time Status Last Admin Dose Admin Acetaminophen/ Hydrocodone Bitart (Lortab 10/325) 1 tab 1X ONCE 04/28/19 01:00 04/28/19 01:01 DC 04/28/19 01:14 1 TAB Hydromorphone HCl (Dilaudid) 1 mg 1X ONCE 04/27/19 22:30 04/27/19 22:31 DC 04/27/19 22:28 1 MG Info (CONTRAST GIVEN -- Rx MONITORING) 1 each PRN DAILY PRN 04/27/19 23:00 04/29/19 22:59 Iohexol (Omnipaque 300 Mg/ml) 100 ml STK-MED ONCE 04/27/19 22:48 04/27/19 22:49 DC Ondansetron HCl (Zofran) 4 mg 1X ONCE 04/28/19 00:30 04/28/19 00:31 DC 04/28/19 00:25 4 MG Allergies Allergies Allergies Coded Allergies Type Severity Reaction Last Updated Verified No Known Medication Allergies Allergy Unknown 04/20/19 Yes Uncoded Allergies Type Severity Reaction Last Updated Verified TIDE Allergy Unknown 04/13/19 Physical Exam Physical Exam Constitutional:Moderate distress secondary to pain. [] HENT: Normocephalic, atraumatic, bilateral external ears normal, oropharynx moist, no oral exudates, nose normal. [] Eyes: PERRLA, EOMI, conjunctiva normal, no discharge. [] Neck: Normal range of motion, no tenderness, supple, no stridor. [] Cardiovascular:Heart rate regular rhythm, no murmur [] Lungs & Thorax: Bilateral breath sounds clear to auscultation [] Abdomen: Bowel sounds normal, soft, quadrant pain, tenderness with voluntary guarding.. [] Skin: Warm, dry, no erythema, no rash. [] Back: No tenderness, no CVA tenderness. [] Extremities: No tenderness, no cyanosis, no clubbing, ROM intact, no edema. [] Neurologic: Alert and oriented X 3, normal motor function, normal sensory function, no focal deficits noted. [] Psychologic: Affect, anxious.. [] Current Patient Data Vital Signs Vital Signs Date Time Temp Pulse Resp B/P (MAP) Pulse Ox O2 Delivery O2 Flow Rate FiO2 04/28/19 01:14 18 99 Room Air 04/27/19 21:20 98.9 118 213/116 (148) 98.9 Lab Values Laboratory Tests Test 04/27/19 21:43 04/27/19 22:45 04/28/19 00:34 White Blood Count 10.8 x10^3/uL (4.0-11.0) Red Blood Count 4.95 x10^6/uL (3.50-5.40) Hemoglobin 15.5 g/dL (12.0-15.5) Hematocrit 44.1 % (36.0-47.0) Mean Corpuscular Volume 89 fL (79-100) Mean Corpuscular Hemoglobin 31 pg (25-35) Mean Corpuscular Hemoglobin Concent 35 g/dL (31-37) Red Cell Distribution Width 14.1 % (11.5-14.5) Platelet Count 393 x10^3/uL (140-400) Neutrophils (%) (Auto) 54 % (31-73) Lymphocytes (%) (Auto) 34 % (24-48) Monocytes (%) (Auto) 6 % (0-9) Eosinophils (%) (Auto) 5 % (0-3) H Basophils (%) (Auto) 1 % (0-3) Neutrophils # (Auto) 5.8 x10^3uL (1.8-7.7) Lymphocytes # (Auto) 3.7 x10^3/uL (1.0-4.8) Monocytes # (Auto) 0.6 x10^3/uL (0.0-1.1) Eosinophils # (Auto) 0.5 x10^3/uL (0.0-0.7) Basophils # (Auto) 0.1 x10^3/uL (0.0-0.2) Sodium Level 140 mmol/L (136-145) Potassium Level 3.8 mmol/L (3.5-5.1) Chloride Level 104 mmol/L (98-107) Carbon Dioxide Level 21 mmol/L (21-32) Anion Gap 15 (6-14) H Blood Urea Nitrogen 10 mg/dL (7-20) Creatinine 0.8 mg/dL (0.6-1.0) Estimated GFR (Cockcroft-Gault) 73.4 BUN/Creatinine Ratio 13 (6-20) Glucose Level 115 mg/dL (70-99) H Calcium Level 9.6 mg/dL (8.5-10.1) Total Bilirubin 0.4 mg/dL (0.2-1.0) Aspartate Amino Transferase (AST) 17 U/L (15-37) Alanine Aminotransferase (ALT) 43 U/L (14-59) Alkaline Phosphatase 86 U/L (46-116) Troponin I Quantitative < 0.017 ng/mL (0.000-0.055) Total Protein 7.5 g/dL (6.4-8.2) Albumin 4.0 g/dL (3.4-5.0) Albumin/Globulin Ratio 1.1 (1.0-1.7) Lipase 188 U/L (73-393) Urine Collection Type Unknown Urine Color Yellow Urine Clarity Clear Urine pH 5.0 Urine Specific [place] >=1.030 Urine Protein Negative mg/dL (NEG-TRACE) Urine Glucose (UA) Negative mg/dL (NEG) Urine Ketones (Stick) Negative mg/dL (NEG) Urine Blood Negative (NEG) Urine Nitrite Negative (NEG) Urine Bilirubin Negative (NEG) Urine Urobilinogen Dipstick 0.2 mg/dL (0.2 mg/dL) Urine Leukocyte Esterase Negative (NEG) Urine RBC Rare /HPF (0-2) Urine WBC Occ /HPF (0-4) Urine Squamous Epithelial Cells Mod /LPF Urine Bacteria 0 /HPF (0-FEW) Urine Hyaline Casts Few /HPF Urine Mucus Slight /LPF Laboratory Tests 04/27/19 21:43 Laboratory Tests 04/27/19 22:45 EKG EKG EKG: Reviewed[] Radiology/Procedures Radiology/Procedures [Ct abd/pelvis: Rectus hematoma, mild post-operative findings per radiology r eport. ] Course & Med Decision Making Course & Med Decision Making Pertinent Labs and Imaging studies reviewed. (See chart for details) [IV pain medication nausea medications given symptom relief. CT abdomen pelvis shows rectus sheath hematoma as possible cause of symptoms. Patient resting comfortably. Lab work and imaging studies reassuring. Will have patient contact general surgeon in a.m. notify of the visit and follow-up scheduled appointment in 2 days.] Dragon Disclaimer Dragon Disclaimer This electronic medical record was generated, in whole or in part, using a voice recognition dictation system. Departure Departure Impression: Primary Impression: Post-operative pain Additional Impression: Rectus sheath hematoma Disposition: 01 HOME, SELF-CARE Condition: GOOD Referrals: LETHA WONG MD (PCP) Patient Instructions: Abdominal Migraine Additional Instructions: Please take home medications for pain. Contact Dr. Concepcion's office in the morning and notify him of the ED visit. Follow-up with Dr. Concepcion as scheduled in 2 days. Problem Qualifiers MICHAEL HARRINGTON DO Apr 27, 2019 23:43
--- NOTE | 2019-04-27 23:49 | RAD ---
EXAM: Abdomen and pelvis CT with intravenous contrast. HISTORY: Right upper quadrant pain. Cholecystectomy. TECHNIQUE: Computed tomographic images of the abdomen and pelvis were obtained following the administration of 75 cc Omnipaque 300 intravenous contrast. Multiplanar reformatting was performed. *One or more of the following individualized dose reduction techniques were utilized for this examination: 1. Automated exposure control. 2. Adjustment of the mA and/or kV according to patient size. 3. Use of iterative reconstruction technique. COMPARISON: 520 90,019. FINDINGS: Evaluation of the lower thorax demonstrates posterior dependent and basilar atelectasis. There is dense calcifications of the mitral valve annulus. There is intrahepatic and extrahepatic biliary ductal dilatation. The gallbladder is surgically absent. There is slight fatty stranding within the gallbladder resection bed. No loculated fluid collection is seen. The pancreas, spleen, adrenal glands and kidneys are unremarkable. No abnormally thickened or dilated loop of bowel is seen. The urinary bladder, uterus and adnexal regions are unremarkable. There is calcified atherosclerotic plaque within the aorta and main aortic branch vessels. There is a right common iliac artery stent. There is asymmetric thickening of the right rectus abdominis muscle belly, slightly due to a small hematoma. There is overlying fatty stranding, slightly increased compared to the prior study. No drainable fluid collection is seen. There is no lymphadenopathy. There are laminotomy changes at the lower lumbar levels. There are degenerative changes primarily at L3-L4. IMPRESSION: 1. Slight stranding within the gallbladder fossa due to relative recent cholecystectomy. There is no abscess or evidence of a bile leak. There is persistent biliary ductal dilatation. 2. Mild asymmetric thickening of the right rectus abdominis muscle belly, new compared to the prior study and possibly due to a small rectus sheath hematoma. There is overlying fatty stranding which is slightly increased compared to the prior study and may be due to increasing inflammation rather than postoperative changes. Electronically signed by: Kaila Niño MD (04/27/2019 11:46 PM) [facility]
[2019-04-28 00:15] VITALS: BP 145/93
[2019-04-28] MEDS ORDERED: ONDANSETRON PF 4 MG/2 ML VIAL. IV ONE (00:30)
[2019-04-28 00:42] LABS: BILIRUBIN,URINE NEGATIVE (NEG); CLARITY,URINE CLEAR; COLOR,URINE YELLOW; NITRITE,URINE NEGATIVE (NEG); PROTEIN,URINE NEGATIVE (NEG-TRACE); UROBILINOGEN,URINE 0.2 mg/dL (0.2 mg/dL)
[2019-04-28 00:51] LABS: BACTERIA,URINE 0 /HPF (0-FEW); HYALINE CASTS, URINE FEW /HPF; RBC,URINE RARE /HPF (0-2); SQUAMOUS EPITHELIAL CELL,UR MOD /LPF; WBC,URINE OCC /HPF (0-4)
[2019-04-28] MEDS ORDERED: HYDROcodone/APAP 10/325 1 TAB TABLET PO ONE (01:00)
--- NOTE | 2019-04-28 06:54 | EKG ---
[facility] [address] [place] [address] Test Date: 2019-04-27 Test Time: 22:33:42 Pat Name: CHEN RICHEY Department: Room: Gender: F [employer]: : 1960 Requested By: MICHAEL HARRINGTON Order Number: [id number] Reading MD: Measurements Intervals [place] Rate: 94 P: -80 MA: 122 QRS: 37 QRSD: 104 T: 26 QT: 368 QTc: 460 Interpretive Statements SINUS RHYTHM R-S TRANSITION ZONE IN V LEADS DISPLACED TO THE LEFT OTHERWISE NORMAL ECG RI6.01 Unconfirmed report No previous ECG available for comparison
== END 2019-04-28 01:50 | disposition home or self-care (01) ==
LOC: ER 21:19
DX: S36.62XA Contusion of rectum, initial encounter (principal); G89.18 Other acute postprocedural pain; R10.11 Right upper quadrant pain; R11.0 Nausea; Z90.49 Acquired absence of other specified parts of digestive tract; F31.9 Bipolar disorder, unspecified; F20.9 Schizophrenia, unspecified; E78.00 Pure hypercholesterolemia, unspecified; Z90.89 Acquired absence of other organs; F41.9 Anxiety disorder, unspecified; X58.XXXA Exposure to other specified factors, initial encounter; Y93.89 Activity, other specified; Y92.89 Other specified places as the place of occurrence of the external cause; Y99.8 Other external cause status; Z88.8 Allergy status to other drugs, medicaments and biological substances
CPT/HCPCS: 36415; 74177; 80053; 81001; 83690; 84484; 85025; 93005; 96372; 96374; 96375; 99285; J1170; J2405; Q9967

== ENCOUNTER 2019-05-22 10:57 | Emergency (ER) | payer MEDICAID ==
[~2019-05-22] VITALS: Ht 167.6 cm; Wt 88.9 kg
[~2019-05-22 10:57] MED LIST changes: -PANT40TA3 PO; +PANT40TA77 PO
[2019-05-22 11:24] VITALS: BP 170/108
[2019-05-22] MEDS ORDERED: CEPHALEXIN 250 MG CAPSULE. PO STA (11:44)
[2019-05-22] MEDS ORDERED: CEPH-264 PO (12:01)
--- NOTE | 2019-05-22 12:01 | PHYS DOC ---
Past Medical History Past Medical History: Anxiety, Bipolar, Depression, High Cholesterol, Rosa izophrenia, Other Additional Past Medical Histor: PTSD,AGOROPHOBIA, djd Past Surgical History: Appendectomy, Cholecystectomy, Tonsillectomy, Other Additional Past Surgical Histo: EYE SX, BACK,CARPAL TUNNEL Smoking: Cigarettes, Less than 1pk/day Alcohol Use: Occasionally Drug Use: Marijuana Adult General Chief Complaint Chief Complaint: SKIN PROBLEM HPI HPI Patient is a 58 year old female who presents with left shoulder rash that started overnight around 3 AM. The patient describes it as itchy, and painful. It's located from the left shoulder down to the left chest. Rates pain as 6 out of 10. States she took oxycodone 3:30 this morning. It did not help. Review of Systems Review of Systems Constitutional: Denies fever or chills [] Eyes: Denies change in visual acuity, redness, or eye pain [] HENT: Denies nasal congestion or sore throat [] Respiratory: Denies cough or shortness of breath [] Cardiovascular: No additional information not addressed in HPI [] GI: Denies abdominal pain, nausea, vomiting, bloody stools or diarrhea [] : Denies dysuria or hematuria [] Musculoskeletal: Denies back pain or joint pain [] Integument: Reports rash to left shoulder. Denies skin lesions [] Neurologic: Denies headache, focal weakness or sensory changes [] Endocrine: Denies polyuria or polydipsia [] Complete systems were reviewed and found to be within normal limits, except as documented in this note. Current Medications Current Medications Current Medications Medications (Trade) Dose Ordered Sig/Rosa Start Time Stop Time Status Last Admin Dose Admin Cephalexin HCl (Keflex) 500 mg 1X STAT 05/22/19 11:44 05/22/19 11:46 DC 05/22/19 11:54 500 MG Allergies Allergies Allergies Coded Allergies Type Severity Reaction Last Updated Verified soap Allergy Intermediate TIDE-WELTS 05/22/19 Yes No Known Medication Allergies Allergy Unknown 04/20/19 Yes Physical Exam Physical Exam Constitutional: Well developed, well nourished, no acute distress, non-toxic appearance. [] HENT: Normocephalic, atraumatic, bilateral external ears normal, oropharynx moist, no oral exudates, nose normal. [] Eyes: PERRLA, EOMI, conjunctiva normal, no discharge. [] Neck: Normal range of motion, no tenderness, supple, no stridor. [] Cardiovascular:Heart rate regular rhythm, no murmur [] Lungs & Thorax: Bilateral breath sounds clear to auscultation [] Abdomen: Bowel sounds normal, soft, no tenderness, no masses, no pulsatile masses. [] Skin: Strip of skin is warm to touch goes from top of L shoulder to left chest, erythematous, tender to palpation. Supraclavicular lymph nodes edema. Back: No tenderness, no CVA tenderness. [] Extremities: No tenderness, no cyanosis, no clubbing, ROM intact, no edema. [] Neurologic: Alert and oriented X 3, normal motor function, normal sensory function, no focal deficits noted. [] Psychologic: Affect normal, judgement normal, mood normal. [] Current Patient Data Vital Signs Vital Signs Date Time Temp Pulse Resp B/P (MAP) Pulse Ox O2 Delivery O2 Flow Rate FiO2 05/22/19 11:24 97.7 91 20 170/108 (128) 97 Room Air 97.7 EKG EKG [] Radiology/Procedures Radiology/Procedures [] Course & Med Decision Making Course & Med Decision Making Pertinent Labs and Imaging studies reviewed. (See chart for details) Appears to have cellulitis. Vital signs are stable. Will place on Keflex and d/c home. Area marked by Dr. Landa who also saw patient. Dragon Disclaimer Dragon Disclaimer This electronic medical record was generated, in whole or in part, using a voice recognition dictation system. Departure Departure Impression: Primary Impression: Cellulitis Disposition: HOME, SELF-CARE Condition: STABLE Referrals: LETHA WONG MD (PCP) Patient Instructions: Cellulitis Additional Instructions: Thank you for visiting [facility]. We appreciate you trusting us with your care. If any additional problems come up don't hesitate to return to visit us. Please follow up with your primary care provider so they can plan additional care if needed and know about the problem that you had. If symptoms worsen come back to the Emergency Department. Any concerning symptoms that start such as chest pain, shortness of Air, weakness or numbness on one side of the body, running high fevers or any other concerning symptoms return to the ER. You have been prescribed an antibiotic today to help fight your infection. Nicolle arboledaase take all of the antibiotic as directed. If after 48 hours the infection is not improving, please return for more care. If the infection worsens, return to ER for additional care. Please fill your medications at any pharmacy and follow the prescription instructions. Scripts Cephalexin (KEFLEX) 500 Mg Capsule 500 MG PO QID for 7 Days, #28 CAP Prov: NICKY GARCIA APRN 05/22/19 Problem Qualifiers Primary Impression: Cellulitis Site of cellulitis: other site Qualified Codes: L03.818 - Cellulitis of other sites NICKY GARCIA APRN May 22, 2019 12:01
[2019-05-23] MEDS ORDERED: CLOP75TA PO (00:14)
[2019-05-24] MEDS ORDERED: FENO134C PO (08:43)
[2019-05-24] MEDS ORDERED: ATORVASTATIN CA80 MG PO (08:43)
[2019-05-24] MEDS ORDERED: PRED20TA PO (08:43)
== END 2019-05-22 12:13 | disposition home or self-care (01) ==
LOC: ER 10:57
DX: L03.114 Cellulitis of left upper limb (principal); L03.313 Cellulitis of chest wall; R59.0 Localized enlarged lymph nodes; E78.00 Pure hypercholesterolemia, unspecified; F31.9 Bipolar disorder, unspecified; F41.9 Anxiety disorder, unspecified; F20.9 Schizophrenia, unspecified; F17.210 Nicotine dependence, cigarettes, uncomplicated; Z88.8 Allergy status to other drugs, medicaments and biological substances
CPT/HCPCS: 99283

== ENCOUNTER 2020-01-20 20:17 | Emergency (ER) | payer MEDICAID ==
[~2020-01-20] VITALS: Ht 167.6 cm; Wt 87.2 kg
[~2020-01-20 20:17] MED LIST changes: +ATORVASTATIN CA80 MG PO; +CEPH-264 PO; +FENO134C PO; +PRED20TA PO
--- NOTE | 2020-01-20 21:30 | PHYS DOC ---
Past Medical History Past Medical History: Anxiety, Bipolar, Depression, High Cholesterol, Schizophrenia, Other Additional Past Medical Histor: PTSD,AGOROPHOBIA, djd Past Surgical History: Appendectomy, Cholecystectomy, Tonsillectomy, Other Additional Past Surgical Histo: EYE SX, BACK,CARPAL TUNNEL Smoking Status: Current Every Day Smoker Alcohol Use: Occasionally Drug Use: Marijuana Adult General Chief Complaint Chief Complaint: FLANK PAIN HPI HPI 59-year-old female with underlying history of schizophrenia, anxiety, depression presents to the emergency Department complaints of left flank pain starting yesterday with radiation to the front. She denies any fever, nausea, vomiting. She denies any dysuria or hematuria. She states she's had no history of kidney stones in the past. Patient has continued pain described as a sharp achy sensation. Nothing makes her pain worse, nothing makes her pain better. Patient states she's not taken any zzzq-hhe-wzetkwq medications. Review of Systems Review of Systems Constitutional: Denies fever or chills [] Respiratory: Denies cough or shortness of breath [] Cardiovascular: No additional information not addressed in HPI [] GI: Denies abdominal pain, nausea, vomiting, bloody stools or diarrhea [] : Denies dysuria or hematuria [] Musculoskeletal: Left flank pain radiation to the front Integument: Denies rash or skin lesions [] Neurologic: Denies headache, focal weakness or sensory changes [] All other systems were reviewed and found to be within normal limits, except as documented in this note. Current Medications Current Medications Current Medications Medications (Trade) Dose Ordered Sig/Rosa Start Time Stop Time Status Last Admin Dose Admin Acetaminophen/ Hydrocodone Bitart (Lortab 7.5/325) 1 tab 1X ONCE 01/20/20 23:00 01/20/20 23:01 Ketorolac Tromethamine (Toradol 30mg Vial) 30 mg 1X ONCE 01/20/20 22:00 01/20/20 22:01 DC 01/20/20 21:58 30 MG Ondansetron HCl (Zofran) 4 mg 1X ONCE 01/20/20 22:00 01/20/20 22:01 DC 01/20/20 21:58 4 MG Sodium Chloride 1,000 ml @ 1,000 mls/hr Q1H 01/20/20 22:00 01/20/20 22:59 01/20/20 21:58 1,000 MLS/HR Allergies Allergies Allergies Coded Allergies Type Severity Reaction Last Updated Verified soap Allergy Intermediate TIDE-WELTS 05/22/19 Yes No Known Medication Allergies Allergy Unknown 04/20/19 Yes Physical Exam Physical Exam Constitutional: Well developed, well nourished, mild distress 2/2 pain, non- toxic appearance. [] Cardiovascular:Heart rate regular rhythm, no murmur [] Lungs & Thorax: Bilateral breath sounds clear to auscultation [] Abdomen: Bowel sounds normal, soft, no tenderness, no masses, no pulsatile masses. [] Skin: Warm, dry, no erythema, no rash. [] Back: No tenderness, mild CVA tenderness[] Extremities: No tenderness, no edema. [] Neurologic: Alert and oriented X 3, no focal deficits noted. [] Psychologic: Affect normal, judgement normal, mood normal. [] Current Patient Data Vital Signs Vital Signs Date Time Temp Pulse Resp B/P (MAP) Pulse Ox O2 Delivery O2 Flow Rate FiO2 01/20/20 21:20 98.4 103 10 118/77 (91) 98 Room Air 98.4 Lab Values Laboratory Tests Test 01/20/20 21:27 01/20/20 21:30 Urine Collection Type Unknown Urine Color Yellow Urine Clarity Clear Urine pH 5.5 Urine Specific [place] 1.010 Urine Protein Negative mg/dL (NEG-TRACE) Urine Glucose (UA) Negative mg/dL (NEG) Urine Ketones (Stick) Negative mg/dL (NEG) Urine Blood Negative (NEG) Urine Nitrite Negative (NEG) Urine Bilirubin Negative (NEG) Urine Urobilinogen Dipstick 0.2 mg/dL (0.2 mg/dL) Urine Leukocyte Esterase Negative (NEG) Urine RBC Occ /HPF (0-2) Urine WBC Occ /HPF (0-4) Urine Squamous Epithelial Cells Mod /LPF Urine Bacteria Few /HPF (0-FEW) Urine Hyaline Casts Few /HPF Urine Mucus Slight /LPF Urine Yeast Present /HPF White Blood Count 9.6 x10^3/uL (4.0-11.0) Red Blood Count 5.08 x10^6/uL (3.50-5.40) Hemoglobin 16.0 g/dL (12.0-15.5) H Hematocrit 45.6 % (36.0-47.0) Mean Corpuscular Volume 90 fL (79-100) Mean Corpuscular Hemoglobin 32 pg (25-35) Mean Corpuscular Hemoglobin Concent 35 g/dL (31-37) Red Cell Distribution Width 13.9 % (11.5-14.5) Platelet Count 356 x10^3/uL (140-400) Neutrophils (%) (Auto) 54 % (31-73) Lymphocytes (%) (Auto) 35 % (24-48) Monocytes (%) (Auto) 4 % (0-9) Eosinophils (%) (Auto) 6 % (0-3) H Basophils (%) (Auto) 2 % (0-3) Neutrophils # (Auto) 5.2 x10^3/uL (1.8-7.7) Lymphocytes # (Auto) 3.4 x10^3/uL (1.0-4.8) Monocytes # (Auto) 0.3 x10^3/uL (0.0-1.1) Eosinophils # (Auto) 0.5 x10^3/uL (0.0-0.7) Basophils # (Auto) 0.2 x10^3/uL (0.0-0.2) Sodium Level 144 mmol/L (136-145) Potassium Level 3.7 mmol/L (3.5-5.1) Chloride Level 106 mmol/L (98-107) Carbon Dioxide Level 21 mmol/L (21-32) Anion Gap 17 (6-14) H Blood Urea Nitrogen 15 mg/dL (7-20) Creatinine 0.6 mg/dL (0.6-1.0) Estimated GFR (Cockcroft-Gault) 102.0 BUN/Creatinine Ratio 25 (6-20) H Glucose Level 169 mg/dL (70-99) H Calcium Level 9.3 mg/dL (8.5-10.1) Total Bilirubin 0.5 mg/dL (0.2-1.0) Aspartate Amino Transferase (AST) 35 U/L (15-37) Alanine Aminotransferase (ALT) 35 U/L (14-59) Alkaline Phosphatase 54 U/L (46-116) Total Protein 7.2 g/dL (6.4-8.2) Albumin 4.1 g/dL (3.4-5.0) Albumin/Globulin Ratio 1.3 (1.0-1.7) Laboratory Tests 01/20/20 21:30 Laboratory Tests 01/20/20 21:30 EKG EKG [] Radiology/Procedures Radiology/Procedures [facility] [address] [place] [address] IMAGING REPORT Signed PATIENT: CHEN RICHEY ACCOUNT: [id number] : 1960 LOCATION: ER AGE: 59 SEX: F EXAM STATUS: REG ER ORD. PHYSICIAN: RUBEN ROY MD REASON: LEFT FLANK PAIN, stone protocol PROCEDURE: CT ABDOMEN PELVIS WO CONTRAST Exam: CT abdomen and pelvis without contrast INDICATION: Left flank pain TECHNIQUE: Sequential axial images through the abdomen and pelvis obtained without IV contrast. Sagittal and coronal reformatted images were reconstructed from the axial data and reviewed. Comparisons: 04/27/2019 FINDINGS: Heart size is normal. No pericardial effusion. Visualized lung bases are clear. No pleural effusion. Evaluation of the solid organs is limited secondary to noncontrast technique. Liver, spleen, pancreas, and adrenals are unremarkable. Gallbladder is surgically absent. No renal or ureteral calculi. No perinephric stranding or hydronephrosis. Bladder is decompressed not well evaluated. Uterus is not enlarged. No abnormal adnexal mass. Large and small bowel are unremarkable. No obstruction. No free abdominal air or fluid. Abdominal aorta has a normal course and caliber. There is a metallic stent noted within the right common iliac artery. No enlarged abdominal lymph nodes are identified. No suspicious osseous lesions or acute fractures. IMPRESSION: No renal or ureteral calculi. No evidence for obstructive uropathy. Exposure: One or more of the following in the visualized dose reduction techniques were utilized for this examination: 1. Automated exposure control 2. Adjustment of the MA and/or KV according to patient size 3. Use of iterative of reconstructive technique Electronically signed by: Jerome Godoy MD (01/20/2020 10:05 PM) [id number] DICTATED and SIGNED BY: JEROME GODOY MD DATE: 01/20/202204 [] Course & Med Decision Making Course & Med Decision Making Pertinent Labs and Imaging studies reviewed. (See chart for details) []59-year-old female with underlying history of schizophrenia, anxiety, depression presents to the emergency Department complaints of left flank pain starting yesterday with radiation to the front. She denies any fever, nausea, vomiting. She denies any dysuria or hematuria. She states she's had no history of kidney stones in the past. Patient has continued pain described as a sharp achy sensation. Nothing makes her pain worse, nothing makes her pain better. Patient states she's not taken any ujaq-jyj-xfrcgjw medications. IVF/Toradol 30mg IV CT negative for acute process, UAD with evidence of blood - no acute infection Pain improved upon reassessment - not fully gone however better VS reviewed CMP reviewed Recommend dc home and follow up as outpatient with patient's PCP [place]/Flexeril as needed Discussed return precautions Kelsey Disclaimer Kelsey Disclaimer This electronic medical record was generated, in whole or in part, using a voice recognition dictation system. Departure Departure Impression: Primary Impression: Left flank pain Disposition: HOME, SELF-CARE Condition: IMPROVED Referrals: LETHA WONG MD (PCP) Patient Instructions: Flank Pain Additional Instructions: CT without acute findings of kidney stone Urine negative for infection Recommend follow up with PCP in 2-3 days Recommend tylenol/motrin as needed for pain [place] x 2 days, Flexeril x 3 days Return to the ER with increased/uncontrolled pain that does not resolve in 72 hours Scripts Cyclobenzaprine Hcl (CYCLOBENZAPRINE HCL) 5 Mg Tablet 1 TAB PO TID PRN for PAIN for 3 Days, #9 TAB Prov: RUBEN ROY MD 01/20/20 Hydrocodone/Apap 5-325 (NORCO 5-325 TABLET) 1 Each Tablet 1-2 TAB PO Q6HRS for pain, #8 TAB Prov: RUBEN ROY MD 01/20/20 RUBEN ROY MD Jan 20, 2020 21:30
[2020-01-20 21:43] LABS: BASO # 0.2 x10^3/uL (0.0-0.2); BASO % 2 % (0-3); EOS # 0.5 x10^3/uL (0.0-0.7); EOS % 6 % (0-3); HEMATOCRIT 45.6 % (36.0-47.0); LYMPH # 3.4 x10^3/uL (1.0-4.8); LYMPH % 35 % (24-48); MEAN CORPUSCULAR HEMOGLOBIN 32 pg (25-35); MEAN CORPUSCULAR HGB CONC 35 g/dL (31-37); MEAN CORPUSCULAR VOLUME 90 fL (79-100); MONO # 0.3 x10^3/uL (0.0-1.1); MONO % 4 % (0-9); NEUT # 5.2 x10^3/uL (1.8-7.7); NEUT % 54 % (31-73); PLATELET COUNT 356 x10^3/uL (140-400); RED BLOOD COUNT 5.08 x10^6/uL (3.50-5.40); RED CELL DISTRIBUTION WIDTH 13.9 % (11.5-14.5); WHITE BLOOD COUNT 9.6 x10^3/uL (4.0-11.0)
[2020-01-20 21:44] LABS: BILIRUBIN,URINE NEGATIVE (NEG); CLARITY,URINE CLEAR; COLOR,URINE YELLOW; NITRITE,URINE NEGATIVE (NEG); PH,URINE 5.5; PROTEIN,URINE NEGATIVE (NEG-TRACE); UROBILINOGEN,URINE 0.2 mg/dL (0.2 mg/dL)
[2020-01-20 21:49] LABS: HYALINE CASTS, URINE FEW /HPF; SQUAMOUS EPITHELIAL CELL,UR MOD /LPF
[2020-01-20 21:50] LABS: BACTERIA,URINE FEW /HPF (0-FEW); RBC,URINE OCC /HPF (0-2); WBC,URINE OCC /HPF (0-4); YEAST,URINE PRESENT /HPF
[2020-01-20 21:57] LABS: CALCIUM 9.3 mg/dL (8.5-10.1); CREATININE 0.6 mg/dL (0.6-1.0); POTASSIUM 3.7 mmol/L (3.5-5.1)
[2020-01-20] MEDS ORDERED: ONDANSETRON PF 4 MG/2 ML VIAL. IV ONE (22:00)
[2020-01-20] MEDS ORDERED: KETOROLAC 30 MG/ML VIAL. IV ONE (22:00)
[2020-01-20] MEDS ORDERED: IV NORMAL SALINE 1000ML BAG 1,000 ML IV SCH (22:00)
[2020-01-20 22:02] LABS: ALBUMIN 4.1 g/dL (3.4-5.0); ALBUMIN/GLOBULIN RATIO 1.3 (1.0-1.7); TOTAL BILIRUBIN 0.5 mg/dL (0.2-1.0); TOTAL PROTEIN 7.2 g/dL (6.4-8.2)
--- NOTE | 2020-01-20 22:08 | RAD ---
Exam: CT abdomen and pelvis without contrast INDICATION: Left flank pain TECHNIQUE: Sequential axial images through the abdomen and pelvis obtained without IV contrast. Sagittal and coronal reformatted images were reconstructed from the axial data and reviewed. Comparisons: 04/27/2019 FINDINGS: Heart size is normal. No pericardial effusion. Visualized lung bases are clear. No pleural effusion. Evaluation of the solid organs is limited secondary to noncontrast technique. Liver, spleen, pancreas, and adrenals are unremarkable. Gallbladder is surgically absent. No renal or ureteral calculi. No perinephric stranding or hydronephrosis. Bladder is decompressed not well evaluated. Uterus is not enlarged. No abnormal adnexal mass. Large and small bowel are unremarkable. No obstruction. No free abdominal air or fluid. Abdominal aorta has a normal course and caliber. There is a metallic stent noted within the right common iliac artery. No enlarged abdominal lymph nodes are identified. No suspicious osseous lesions or acute fractures. IMPRESSION: No renal or ureteral calculi. No evidence for obstructive uropathy. Exposure: One or more of the following in the visualized dose reduction techniques were utilized for this examination: 1. Automated exposure control 2. Adjustment of the MA and/or KV according to patient size 3. Use of iterative of reconstructive technique Electronically signed by: Jerome Kurtz MD (01/20/2020 10:05 PM) [id number]
[2020-01-20] MEDS ORDERED: CYCL5TAB PO (22:48)
[2020-01-20] MEDS ORDERED: HYDR-3164 PO (22:48)
[2020-01-20 22:58] VITALS: BP 126/58
[2020-01-20] MEDS ORDERED: HYDROcodone/APAP 7.5/325MG 1 TAB TABLET PO ONE (23:00)
== END 2020-01-20 23:15 | disposition home or self-care (01) ==
LOC: ER 20:17
DX: R10.9 Unspecified abdominal pain (principal); F31.9 Bipolar disorder, unspecified; E78.00 Pure hypercholesterolemia, unspecified; F20.9 Schizophrenia, unspecified; F41.9 Anxiety disorder, unspecified; F17.200 Nicotine dependence, unspecified, uncomplicated; Z90.89 Acquired absence of other organs; Z90.49 Acquired absence of other specified parts of digestive tract; Z88.8 Allergy status to other drugs, medicaments and biological substances
CPT/HCPCS: 36415; 74176; 80053; 81001; 85025; 96361; 96374; 96375; 99285; J1885; J2405; J7030

== ENCOUNTER 2020-01-22 10:57 | Emergency (ER) | payer MEDICAID ==
[~2020-01-22] VITALS: Ht 167.6 cm; Wt 86.0 kg
[~2020-01-22 10:57] MED LIST changes: +CYCL5TAB PO
[2020-01-22 11:15] VITALS: BP 168/104
--- NOTE | 2020-01-22 11:41 | PHYS DOC ---
Past Medical History Past Medical History: Anxiety, Bipolar, Depression, High Cholesterol, Rosa izophrenia, Other Additional Past Medical Histor: PTSD,AGOROPHOBIA, djd; chronic back pain Past Surgical History: Appendectomy, Cholecystectomy, Tonsillectomy, Other Additional Past Surgical Histo: EYE SX, BACK,CARPAL TUNNEL Smoking Status: Current Every Day Smoker Alcohol Use: Occasionally Drug Use: Marijuana Adult General Chief Complaint Chief Complaint: LOWER BACK PAIN OR INJURY HPI HPI Patient is a 59 year old female who presents with complaint of left-sided low back pain with radiation to the hip and leg. Her symptoms have been ongoing for a couple of days now. She was in the ER 2 days ago where she had an extensive workup including laboratory analysis and CT scan all of which was unremarkable and she was ultimately sent home with a prescription for hydrocodone and a muscle relaxer. Patient states that these medications are not giving her relief. Her pain is worse with movement. She has no saddle anesthesia or loss of bowel or bladder control. Her pain is moderate to severe in intensity. She is requesting an injection of steroids which has helped in the past. Review of Systems Review of Systems All other ROS is negative unless otherwise stated in HPI Current Medications Current Medications Current Medications Medications (Trade) Dose Ordered Sig/Rosa Start Time Stop Time Status Last Admin Dose Admin Ketorolac Tromethamine (Toradol Im) 60 mg 1X ONCE 01/22/20 11:45 01/22/20 11:46 DC 01/22/20 11:47 60 MG Methylprednisolone Sodium Succinate (SOLU-Medrol 125MG VIAL) 125 mg 1X ONCE 01/22/20 11:45 01/22/20 11:46 DC 01/22/20 11:47 125 MG Orphenadrine Citrate (Norflex) 60 mg 1X ONCE 01/22/20 11:45 01/22/20 11:46 DC 01/22/20 11:47 60 MG Allergies Allergies Allergies Coded Allergies Type Severity Reaction Last Updated Verified soap Allergy Intermediate TIDE-WELTS 05/22/19 Yes No Known Medication Allergies Allergy Unknown 04/20/19 Yes Physical Exam Physical Exam See above Constitutional: Well developed, well nourished, uncomfortable, non-toxic appearance. [] HENT: Normocephalic, atraumatic, bilateral external ears normal, oropharynx moist, no oral exudates, nose normal. [] Eyes: PERRLA, EOMI, conjunctiva normal, no discharge. [] Neck: Normal range of motion, no tenderness, supple, no stridor. [] Cardiovascular:Heart rate regular rhythm, no murmur [] Lungs & Thorax: Bilateral breath sounds clear to auscultation [] Abdomen: Bowel sounds normal, soft, no tenderness, no masses, no pulsatile masses. [] Skin: Warm, dry, no erythema, no rash. [] Back: Muscle spasm present left lumbar region with tenderness to palpation and extension to the left hip/buttock Extremities: No tenderness, no cyanosis, no clubbing, ROM intact, no edema. [] Neurologic: Alert and oriented X 3, normal motor function, normal sensory function, no focal deficits noted. [] Current Patient Data Vital Signs Vital Signs Date Time Temp Pulse Resp B/P (MAP) Pulse Ox O2 Delivery O2 Flow Rate FiO2 01/22/20 11:15 97.6 101 20 168/104 (125) 98 Room Air 97.6 All other ROS is negat EKG EKG [] Course & Med Decision Making Course & Med Decision Making Pertinent Labs and Imaging studies reviewed. (See chart for details) []Patient seen for low back pain consistent with muscular skeletal nature. We will provide injection of portal, Norflex, steroids and reevaluate. 1216: Patient feeling better, requesting to go home. Dragon Disclaimer Dragon Disclaimer This electronic medical record was generated, in whole or in part, using a voice recognition dictation system. Departure Departure Impression: Primary Impression: Left lumbosacral radiculopathy Disposition: HOME, SELF-CARE Condition: IMPROVED Referrals: LETHA WONG MD (PCP) Patient Instructions: Lumbosacral Radiculopathy RUMA JAY DO Jan 22, 2020 11:41
[2020-01-22] MEDS ORDERED: ORPHENADRINE CITRATE 60 MG/2 ML VIAL. IM ONE (11:45)
[2020-01-22] MEDS ORDERED: methylPREDNISolone SOD SUCC PF 125 MG/2 ML VIAL. IM ONE (11:45)
[2020-01-22] MEDS ORDERED: KETOROLAC 60 MG/2 ML VIAL. IM ONE (11:45)
== END 2020-01-22 12:20 | disposition home or self-care (01) ==
LOC: ER 10:57
DX: M54.17 Radiculopathy, lumbosacral region (principal); M25.552 Pain in left hip; M79.605 Pain in left leg; F17.200 Nicotine dependence, unspecified, uncomplicated; E78.00 Pure hypercholesterolemia, unspecified; F31.9 Bipolar disorder, unspecified; F20.9 Schizophrenia, unspecified; G89.29 Other chronic pain; Z90.89 Acquired absence of other organs; Z90.49 Acquired absence of other specified parts of digestive tract; Z98.890 Other specified postprocedural states; Z88.8 Allergy status to other drugs, medicaments and biological substances
CPT/HCPCS: 96372; 99284; J1885; J2360; J2930

== ENCOUNTER 2020-02-06 18:41 | Emergency (ER) | payer MEDICAID ==
[~2020-02-06] VITALS: Ht 167.6 cm; Wt 88.0 kg
[2020-02-06 19:06] VITALS: BP 124/71
[2020-02-06] MEDS ORDERED: predniSONE 20 MG TABLET PO ONE (19:45)
[2020-02-06] MEDS ORDERED: PRED50TA PO (19:46)
[2020-02-06] MEDS ORDERED: CEPH-264 PO (19:46)
--- NOTE | 2020-02-06 19:48 | PHYS DOC ---
Past Medical History Past Medical History: Anxiety, Bipolar, Depression, High Cholesterol, Rosa izophrenia, Other Additional Past Medical Histor: PTSD,AGOROPHOBIA, djd; chronic back pain (CORNELL SOTO APRN) Past Surgical History: Appendectomy, Cholecystectomy, Tonsillectomy, Other Additional Past Surgical Histo: EYE SX, BACK,CARPAL TUNNEL, R leg stent (CORNELL SOTO APRN) Smoking Status: Current Every Day Smoker Alcohol Use: Occasionally Drug Use: Marijuana (CORNELL SOTO APRN) Attending Signature I have participated in the care of this patient and I have reviewed and agree with all pertinent clinical information above including history, exam, and recommendations. (RUBEN ROY MD) Adult General Chief Complaint Chief Complaint: FOOT INJURY PAIN HPI HPI Patient is a 59 year old female who presents the emergency department with complaints of right foot redness and pain without any injury. She states that she first noticed the pain in her foot 2 days ago. She denies any numbness, tingling, or itching of the affected foot. Patient states she had a stent anson jayjay in her right groin 2 years ago. Patient denies any decreased sensation of her affected foot. She denies any history of gout. She also denies any fever. She currently rates the pain 8 out of 10 on the pain scale, the pain increases to a 10 out of 10 if she bears any weight. Patient denies any alleviating factors. She states that she does take Plavix and denies missing any doses of the medication. (CORNELL SOTO APRN) Review of Systems Review of Systems Complete ROS is negative unless otherwise noted in HPI. (CORNELL SOTO APRN) Current Medications Current Medications Current Medications Medications (Trade) Dose Ordered Sig/Rosa Start Time Stop Time Status Last Admin Dose Admin Prednisone (Prednisone) 60 mg 1X ONCE 02/06/20 19:45 02/06/20 19:49 DC 02/06/20 19:45 60 MG (RUBEN ROY MD) Allergies Allergies Allergies Coded Allergies Type Severity Reaction Last Updated Verified soap Allergy Intermediate TIDE-WELTS 05/22/19 Yes No Known Medication Allergies Allergy Unknown 04/20/19 Yes (RUBEN ROY MD) Physical Exam Physical Exam See Above Constitutional: Well developed, well nourished, no acute distress, non-toxic appearance. [] HENT: Normocephalic, atraumatic, bilateral external ears normal, nose normal. [] Eyes: PERRLA, EOMI, conjunctiva normal, no discharge. [] Neck: Normal range of motion, no stridor. [] Cardiovascular:Heart rate regular rhythm, Lungs & Thorax: Respirations even and unlabored, no retractions, no respiratory distress Skin: Warm, dry; erythema and warmth noted to the volar surface of the right foot concerning for cellulitis or possible gout. There is no drainage, or visible wound. Extremities: Right midfoot tenderness to palpation without crepitus or deformity, no cyanosis, no clubbing, ROM intact, no edema, PMS intact [] Neurologic: Alert and oriented X 3, no focal deficits noted. [] Psychologic: Affect normal, judgement normal, mood normal. [] (CORNELL SOTO APRN) Current Patient Data Vital Signs Vital Signs Date Time Temp Pulse Resp B/P (MAP) Pulse Ox O2 Delivery O2 Flow Rate FiO2 02/06/20 19:06 98.2 109 16 124/71 (88) 97 Room Air 98.2 (RUBEN ROY MD) EKG EKG [] (CORNELL SOTO APRN) Radiology/Procedures Radiology/Procedures [] (CORNELL SOTO APRN) Course & Med Decision Making Course & Med Decision Making Pertinent Labs and Imaging studies reviewed. (See chart for details) Patient is a 59-year-old female who presented to the emergency room with complaints of right foot redness, warmth, and pain for 2 days. Physical exam is concerning for cellulitis versus gout. The patient was given 60 mg of p.o. prednisone while in the emergency department. Prescriptions were written for 50 mg of prednisone to take 1 tablet daily for the next 5 days and 500 mg of Keflex 4 times a day for 7 days. She was encouraged to follow-up with her primary care doctor for reevaluation this week. Return to the ER if symptoms worsen. Patient verbalized an understanding of home care, medications, follow-up, and return to ED instructions and was in agreement with the plan of care. [] (CORNELL SOTO APRN) Dragon Disclaimer Dragon Disclaimer This electronic medical record was generated, in whole or in part, using a voice recognition dictation system. (CORNELL SOTO APRN) Departure Departure Impression: Primary Impression: Cellulitis Additional Impression: Gout Disposition: HOME, SELF-CARE Condition: STABLE Referrals: LETHA WONG MD (PCP) Patient Instructions: Cellulitis, Flog-yh-Efqx, Gout, Jwcf-kr-Xylm Scripts Cephalexin (KEFLEX) 500 Mg Capsule 500 MG PO QID for 7 Days, #28 CAP 0 Refills Prov: CORNELL SOTO APRN 02/06/20 Prednisone (PREDNISONE) 50 Mg Tablet 1 TAB PO DAILY for 5 Days, #5 TAB 0 Refills begin taking on 02/07/20 Prov: CORNELL SOTO APRN 02/06/20 Problem Qualifiers Primary Impression: Cellulitis Site of cellulitis: other site Qualified Codes: L03.818 - Cellulitis of other sites Additional Impression: Gout Gout site: foot Gout etiology: unspecified cause Chronicity: acute Laterality: right Qualified Codes: M10.9 - Gout, unspecified CORNELL SOTO APRN Feb 06, 2020 19:48 RUBEN ROY MD Feb 07, 2020 23:16
== END 2020-02-06 20:00 | disposition home or self-care (01) ==
LOC: ER 18:41
DX: L03.818 Cellulitis of other sites (principal); M10.9 Gout, unspecified; E78.00 Pure hypercholesterolemia, unspecified; F20.9 Schizophrenia, unspecified; F41.9 Anxiety disorder, unspecified; F31.9 Bipolar disorder, unspecified; F43.10 Post-traumatic stress disorder, unspecified; G89.29 Other chronic pain; F17.200 Nicotine dependence, unspecified, uncomplicated; Z88.8 Allergy status to other drugs, medicaments and biological substances
CPT/HCPCS: 99283; J7512

== ENCOUNTER 2020-02-21 13:07 | Emergency (ER) | payer MEDICAID ==
[~2020-02-21 13:07] MED LIST changes: +PRED50TA PO
== END 2020-02-21 14:10 | disposition left against medical advice (07) ==
LOC: ER 13:07
DX: M25.552 Pain in left hip (principal); Z53.21 Procedure and treatment not carried out due to patient leaving prior to being seen by health care provider

== ENCOUNTER 2021-11-20 16:04 | Emergency (ER) | payer MEDICAID ==
[~2021-11-20 16:04] MED LIST changes: +CLIN-94 PO; -CLIN300C8 PO; -FLUV50TA2 PO; +FLUV50TA21 PO; -OXYC15TA PO; +OXYC15TA3 PO
== END 2021-11-20 21:09 | disposition left against medical advice (07) ==
LOC: ER 16:04
DX: M79.673 Pain in unspecified foot (principal); Z53.21 Procedure and treatment not carried out due to patient leaving prior to being seen by health care provider

== ENCOUNTER → 2021-11-28 | Outpatient (CLI) | payer MEDICAID ==
--- NOTE | 2021-11-28 12:09 | RAD ---
AP and Lateral Views of the Chest 11/28/2021 11:42 AM Indication: Reason: COUGH Comparison: Chest radiograph May 18, 2018 Findings: There is no focal consolidation or infiltrate identified. The cardiomediastinal silhouette is within normal limits. There is no evidence of pneumothorax or pleural effusion. No acute osseous a bnormalities are identified. Impression: No evidence of acute cardiopulmonary process. Electronically signed by: Demetrius Galvez MD (11/28/2021 12:07 PM) [id number]
--- NOTE | 2021-11-29 13:22 | RAD ---
US RIGHT LOWER EXTREMITY ARTERIAL DUPLEX EVAL Indication: Reason: PERIPHERAL ARTERY DISEASE / Spl. Instructions: / History: Comparison: April 01, 2019. Procedure: Real-time grayscale, color flow Doppler, and Doppler spectral waveform analysis of the art erial system of the lower extremity is performed. Findings: Right lower extremity: Triphasic or biphasic waveforms within the right common femoral, deep femoral and superficial femoral arteries. Occlusion of the distal popliteal artery. There is reconstitution w ith monophasic waveforms in the peroneal, posterior tibial, anterior tibial and dorsalis pedis arteri es. No significant velocity elevation. Moderate atheromatous plaque. IMPRESSION: 1. Occlusion of the right distal popliteal artery. CT angiogram can further assess as clinically war ranted. Electronically signed by: Tae Conklin DO (11/29/2021 1:20 PM) [facility]
== END ==
LOC: US 11:14
PROVIDERS: ATTEND Family Medicine
DX: I70.201 Unspecified atherosclerosis of native arteries of extremities, right leg (principal); R05.9 Cough, unspecified
CPT/HCPCS: 71046; 93926

== ENCOUNTER 2021-12-15 11:33 | Emergency (ER) | payer MEDICAID ==
[~2021-12-15] VITALS: Ht 167.6 cm; Wt 88.6 kg
--- NOTE | 2021-12-15 11:40 | PHYS DOC ---
Past Medical History Past Medical History: Anxiety, Bipolar, Depression, High Cholesterol, Schizophrenia, Other Additional Past Medical Histor: PTSD,AGOROPHOBIA, djd; chronic back pain Past Surgical History: Appendectomy, Cholecystectomy, Tonsillectomy, Other Additional Past Surgical Histo: EYE SX, BACK,CARPAL TUNNEL, R leg stent Smoking Status: Current Every Day Smoker Alcohol Use: Occasionally Drug Use: Marijuana Adult General Chief Complaint Chief Complaint: SHORTNESS OF BREATH HPI HPI Patient is a 61 year old female who presents with near syncope. Patient was doing laundry at home. She had sudden onset of dyspnea. She felt lightheaded that she might pass out. She sat down. Her symptoms improved. On arrival to the ER, she is at baseline. During the episode, she did not have chest pain or palpitations but she states she did feel very short of breath.. She did feel lightheaded. Did not have headache or vision changes. Does not have prior history of similar symptoms in the past. Has been at baseline health recently. No illness. No viral symptoms, cough, fever. Review of Systems Review of Systems Constitutional: Denies fever or chills Eyes: Denies change in visual acuity, redness, or eye pain HENT: Denies nasal congestion or sore throat Respiratory: As documented in HPI Cardiovascular: No additional information not addressed in HPI GI: Denies abdominal pain, nausea : Denies dysuria or hematuria Musculoskeletal: Denies Integument: Denies rash or skin lesions Neurologic: Denies headache, focal weakness Endocrine: Denies polyuria or polydipsia All other systems were reviewed and found to be within normal limits, except as documented in this note. Current Medications Current Medications Current Medications Medications (Trade) Dose Ordered Sig/Rosa Start Time Stop Time Status Last Admin Dose Admin Info (CONTRAST GIVEN -- Rx MONITORING) 1 each PRN DAILY PRN 12/15/21 15:45 12/17/21 15:44 Iohexol (Omnipaque 350 Mg/ml) 100 ml 1X ONCE 12/15/21 15:30 12/15/21 15:36 DC 12/15/21 15:39 100 ML Sodium Chloride 1,000 ml @ 1,000 mls/hr 1X ONCE 12/15/21 12:45 12/15/21 13:44 DC 12/15/21 13:13 1,000 MLS/HR Allergies Allergies Allergies Coded Allergies Type Severity Reaction Last Updated Verified soap Allergy Intermediate TIDE-WELTS 12/15/21 Yes No Known Medication Allergies Allergy Unknown 12/15/21 Yes Uncoded Allergies Type Severity Reaction Last Updated Verified TIDE Allergy Mild rash 12/15/21 Physical Exam Physical Exam Constitutional: Well developed, well nourished, no acute distress, non-toxic appearance. HENT: Normocephalic, atraumatic, bilateral external ears normal, oropharynx moist, no oral exudates, nose normal Eyes: PERRLA, EOMI, conjunctiva normal, no discharge. Neck: Normal range of motion, no tenderness, supple, no stridor Cardiovascular:Heart rate regular rhythm, no murmur Lungs & Thorax: Bilateral breath sounds clear to auscultation Abdomen: Bowel sounds normal, soft, no tenderness Skin: Warm, dry, no erythema, no rash Back: Normal ROM Extremities: No tenderness, no cyanosis, no clubbing, ROM intact, no edema Neurologic: Alert and oriented X 3, normal motor function, normal sensory function Psychologic: Affect normal Current Patient Data Vital Signs Vital Signs Date Time Temp Pulse Resp B/P (MAP) Pulse Ox O2 Delivery O2 Flow Rate FiO2 12/15/21 13:08 69 18 134/106 (115) 98 Room Air 12/15/21 11:47 97.4 97.4 Lab Values Laboratory Tests Test 12/15/21 12:58 12/15/21 13:00 White Blood Count 9.1 x10^3/uL (4.0-11.0) Red Blood Count 4.82 x10^6/uL (3.50-5.40) Hemoglobin 15.0 g/dL (12.0-15.5) Hematocrit 43.4 % (36.0-47.0) Mean Corpuscular Volume 90 fL (79-100) Mean Corpuscular Hemoglobin 31 pg (25-35) Mean Corpuscular Hemoglobin Concent 35 g/dL (31-37) Red Cell Distribution Width 13.6 % (11.5-14.5) Platelet Count 264 x10^3/uL (140-400) Neutrophils (%) (Auto) 82 % (31-73) H Lymphocytes (%) (Auto) 11 % (24-48) L Monocytes (%) (Auto) 5 % (0-9) Eosinophils (%) (Auto) 1 % (0-3) Basophils (%) (Auto) 1 % (0-3) Neutrophils # (Auto) 7.4 x10^3/uL (1.8-7.7) Lymphocytes # (Auto) 1.0 x10^3/uL (1.0-4.8) Monocytes # (Auto) 0.5 x10^3/uL (0.0-1.1) Eosinophils # (Auto) 0.1 x10^3/uL (0.0-0.7) Basophils # (Auto) 0.1 x10^3/uL (0.0-0.2) D-Dimer (Lavinia) 1.49 ug/mlFEU (0.00-0.50) H Sodium Level 142 mmol/L (136-145) Potassium Level 4.8 mmol/L (3.5-5.1) Chloride Level 105 mmol/L (98-107) Carbon Dioxide Level 25 mmol/L (21-32) Anion Gap 12 (6-14) Blood Urea Nitrogen 11 mg/dL (7-20) Creatinine 0.6 mg/dL (0.6-1.0) Estimated GFR (Cockcroft-Gault) 101.3 Glucose Level 110 mg/dL (70-99) H Calcium Level 9.0 mg/dL (8.5-10.1) Troponin I High Sensitivity 7 ng/L (4-50) NA-Emz-D-Type Natriuretic Peptide 49 pg/mL (0-124) Influenza Type A Antigen Negative (NEGATIVE) Influenza Type B Antigen Negative (NEGATIVE) SARS-CoV-2 Antigen (Rapid) Negative (NEGATIVE) Laboratory Tests 12/15/21 12:58 Laboratory Tests 12/15/21 12:58 EKG EKG 12:45: EKG is interpreted by ER physician. Normal sinus rhythm. No ST changes to suggest ischemia. Rate is 63. Radiology/Procedures Radiology/Procedures [] Course & Med Decision Making Course & Med Decision Making Pertinent Labs and Imaging studies reviewed. (See chart for details) Ms. Aj is evaluated on arrival to her room. Her symptoms have resolved prior to arriving in the ER. She describes an episode of what she felt to be severe shortness of breath. She did not have chest pain but she did have a near syncopal episode. She was not involved in changing positions. 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 Today, we will give IV fluids and check labs and COVID status. 14:30: No acute findings on her work-up. D-dimer is added. She continues to be symptom-free in the ER. No chest pain or shortness of breath at this time. 15:20: Dimer elevated. CT scan angiography of the chest is ordered 16:15: All results are reviewed. CT angiography is returned and there is no pulmonary embolus. Patient does have nonspecific findings on both x-ray and CT that could represent infectious process. The rest of her work-up is unremarkable including a head CT. She is currently feeling improved after receiving IV fluids. Unclear etiology for her presentation but she did have near syncopal episode she was dyspneic. Today, no acute cause is found but she we will empirically treat her for her nonspecific findings on imaging. She is given 1 g of Rocephin in the ER along with azithromycin 500. Discharged home on the same and 4 days of prednisone. Recommended she come back to the ER for any new or severely worsening symptoms. Otherwise, follow-up with primary care physician as needed if not improving. Dragon Disclaimer Dragon Disclaimer This electronic medical record was generated, in whole or in part, using a voice recognition dictation system. Departure Departure Impression: Primary Impression: Near syncope Additional Impression: Pneumonia Disposition: 01 HOME / SELF CARE / HOMELESS Condition: GOOD Referrals: LETHA WONG MD (PCP) Patient Instructions: Near-Syncope, Pneumonia, Adult Scripts Prednisone (PREDNISONE) 50 Mg Tablet 1 TAB PO DAILY for 4 Days, #4 TAB Prov: KARLO MASSEY DO 12/15/21 Azithromycin (AZITHROMYCIN TABLET) 250 Mg Tablet 250 MG PO DAILY for ANTI-BIOTIC for 4 Days, #4 TAB 0 Refills Prov: KARLO MASSEY DO 12/15/21 Problem Qualifiers KAROL MASSEY DO Dec 15, 2021 11:40
[2021-12-15] MEDS ORDERED: IV NORMAL SALINE 1000ML BAG 1,000 ML IV ONE (12:45)
--- NOTE | 2021-12-15 12:53 | RAD ---
XR CHEST 1V INDICATION: Reason: dyspnea / Spl. Instructions: / History: . COMPARISON STUDY: 11/28/2021. FINDINGS: Lungs: Normal lung volume. Mild left basilar heterogeneous opacity. Pleura: No pleural effusion or pneumothorax. Heart and Mediastinum: The cardiomediastinal silhouette is normal. Mild tortuosity of the thoracic ao rta. IMPRESSION: Mild left basilar opacities, possibly an infectious/inflammatory process. Electronically signed by: Jordy Weems MD (12/15/2021 12:51 PM) [id number]
[2021-12-15 13:15] LABS: BASO # 0.1 x10^3/uL (0.0-0.2); BASO % 1 % (0-3); EOS # 0.1 x10^3/uL (0.0-0.7); EOS % 1 % (0-3); HEMATOCRIT 43.4 % (36.0-47.0); LYMPH % 11 % (24-48); MEAN CORPUSCULAR HEMOGLOBIN 31 pg (25-35); MEAN CORPUSCULAR HGB CONC 35 g/dL (31-37); MEAN CORPUSCULAR VOLUME 90 fL (79-100); MONO # 0.5 x10^3/uL (0.0-1.1); MONO % 5 % (0-9); NEUT # 7.4 x10^3/uL (1.8-7.7); NEUT % 82 % (31-73); PLATELET COUNT 264 x10^3/uL (140-400); RED BLOOD COUNT 4.82 x10^6/uL (3.50-5.40); RED CELL DISTRIBUTION WIDTH 13.6 % (11.5-14.5); WHITE BLOOD COUNT 9.1 x10^3/uL (4.0-11.0)
--- NOTE | 2021-12-15 13:17 | RAD ---
CT HEAD/BRAIN WO Date: 12/15/2021 12:44 PM Clinical Indication: near syncope, dizziness Comparison: None. Technique: 5 mm axial tomographic images were obtained of the head without contrast. These were view ed on brain and bone windows. One or more of the following dose reduction techniques were utilized: A utomated exposure control (AEC), Adjustment of mA and/or kV according to patient size, Use of iterati ve reconstruction technique such as ASiR, CT scan done according to ALARA and image gently/image hernández ly Findings: The brain parenchyma is normal in attenuation. No intra- or extra-axial mass or fluid collection. No acute hemorrhage. The ventricles are normal in size, shape, and morphology. The ferreira-white matter neri ction is normal. The subarachnoid cisterns are patent. The visualized paranasal sinuses are normal. The visualized portions of the orbits and globes are no rmal. The mastoid air cells are clear. The can filling room sweeper topogram shows no lytic lesion or fracture. Impression: No acute intracranial process. Electronically signed by: Jordy Weems MD (12/15/2021 1:15 PM) [id number]
[2021-12-15 13:39] LABS: CREATININE 0.6 mg/dL (0.6-1.0); GFR 101.3; POTASSIUM 4.8 mmol/L (3.5-5.1)
[2021-12-15 13:46] LABS: INFLUENZA A PATIENT NEGATIVE (NEGATIVE); INFLUENZA B PATIENT NEGATIVE (NEGATIVE)
[2021-12-15] MEDS ORDERED: IOHEXOL 350 MG/ML 100 ML VIAL. IV ONE (15:30)
[2021-12-15] MEDS ORDERED: CONTRAST GIVEN. MC PRN (15:45)
--- NOTE | 2021-12-15 15:57 | RAD ---
CTA CHEST History: Elevated d-dimer, dyspnea. Rule out PE. Comparison: CTA chest 06/13/17 Technique: CTA of the pulmonary arteries with intravenous contrast. 3-D postprocessing was performed. Findings: Pulmonary arteries: No pulmonary embolism. Aorta and great vessels: No aneurysm or dissection of the aortic arch or thoracic aorta. Thyroid: No significant abnormalities. Mediastinum and indu: Prominent subcarinal lymph node measures 1.0 cm short axis, similar to comparis on Esophagus: The visualized esophagus is normal. Heart: The heart is normal in size. There is no pericardial effusion. Airways, Lungs, Pleura: The airways are patent. There are subtle groundglass opacities including righ t upper lobe 9 mm groundglass opacity (axial 41), 5 mm groundglass nodule (axial 51). A right middle lobe. Fissural nodule measuring 5 mm diameter is not significantly changed from 2017 consistent with benign process. Bilateral dependent atelectatic changes. No pleural effusion. Upper abdomen: Cholecystectomy clips. Osseous structures and soft tissues: Within normal limits for age. Impression: 1. No pulmonary embolism, aortic aneurysm or aortic dissection. 2. New right upper lobe groundglass nodules may be due to infectious or inflammatory process. Recomm end follow up noncontrast CT chest in 3-6 months to evaluate for persistence. ------ Exposure: One or more of the following individualized dose reduction techniques were utilized for thi s examination: 1. Automated exposure control 2. Adjustment of the mA and/or kV according to patient size 3. Use of iterative reconstruction technique. Electronically signed by: Darius Dinh MD (12/15/2021 3:54 PM) [facility]
[2021-12-15] MEDS ORDERED: AZITHROMYCIN 250 MG TABLET. PO ONE (16:15)
[2021-12-15] MEDS ORDERED: predniSONE 10 MG TABLET PO ONE (16:15)
[2021-12-15] MEDS ORDERED: cefTRIAXone IV Push 1 GM VIAL. IVP ONE (16:15)
[2021-12-15] MEDS ORDERED: AZIT250T6 PO (16:18)
[2021-12-15] MEDS ORDERED: PRED50TA PO (16:18)
[2021-12-15 17:52] VITALS: BP 150/84
--- NOTE | 2021-12-16 01:48 | EKG ---
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
== END 2021-12-15 17:56 | disposition home or self-care (01) ==
LOC: ER 11:33
DX: J18.9 Pneumonia, unspecified organism (principal); R55 Syncope and collapse; F41.9 Anxiety disorder, unspecified; F31.9 Bipolar disorder, unspecified; E78.00 Pure hypercholesterolemia, unspecified; F20.9 Schizophrenia, unspecified; G89.29 Other chronic pain; F43.10 Post-traumatic stress disorder, unspecified; F17.200 Nicotine dependence, unspecified, uncomplicated; Z20.822 Contact with and (suspected) exposure to COVID-19; Z88.8 Allergy status to other drugs, medicaments and biological substances
CPT/HCPCS: 36415; 70450; 71045; 71275; 80048; 83880; 84484; 85025; 85379; 87428; 93005; 96361; 96374; 99285; J0696; J7030; J7512; Q9967

== ENCOUNTER → 2022-04-19 | Outpatient (CLI) | payer MEDICAID ==
[~2022-04-19] MED LIST changes: +AZIT250T6 PO; -FENO134C PO; +FENO134C22 PO; +REGADENOSON 0.4 MG/5 ML DISP.SYRIN. IV ONE
--- NOTE | 2022-04-19 15:20 | RAD ---
MR#: [id number] Date of Study: 04/19/2022 Ordering Physician: ANDREW SPARROW, Referring Physician: BAHMAN CHRISTY Tech: TORREY Rico, ARRT (R) (N) APPROVED REPORT Test Type: Pharmacological Stress Nurse/Tech: IGNACIA PEREZ Test Indications: DYSPNEA, FATIGUE Cardiac History: SEE EMR Medications: SEE EMR Medical History: SMOKER- SEE EMR Resting ECG: SR W/ OCCASS. PAC Resting Heart Rate: 69 bpm Resting Blood Pressure: 125/69mmHg Pretest Chest Pain: No chest pain Nurse/Tech Notes S1,S2, LUNGS CTA, DENIED CHEST PAIN OR SHORTNESS OF BREATH AT THIS TIME. PT STATES SHE STILL SMOKES A BOUT 1 PACK OF CIGARETTES EVERY 2 DAYS. NO FURTHER COMPLAINTS. Consent: The procedure was explained to the patient in lay terms. Informed consent was witnessed. Armin eokarie was entered into [employer] History and Stress Test performed by Memo Quezada, RT (R) (N) Pharm. Details Pharmacologic stress testing was performed using 0.4mg per 5ml of regadenoson given intravenously ove r 7-10 seconds. Stress Symptoms PT C/O A BRIEF EPISODE OF SHORTNESS OF BREATH AND ANXIETY DURING THE INTIAL TESTING, SYMPTOMS RESOLVE D AFTER A COUPLE OF MINUTES. POST EXERCISE Reason for Termination: Infusion complete Max HR: 109 bpm Max Blood Pressure: 124/70mmHg Blood Pressure response to exercise: Normal blood pressure response during stress. Heart Rate response to exercise: WNL Chest Pain: No. Arrhythmia: . NO SIGNIFICANT CHANGES NOTED FROM BASELINE EKG. INTERPRETATION Stress EKG Conclusion: The resting EKG shows a sinus rhythm with mild nonspecific ST segment changes. The stress EKG shows no significant changes from baseline. No EKG evidence of stress-induced ischemia. Imaging Protocol IMAGE PROTOCOL: Rest Tc-99m/stress Tc-99m 1 day Rest: Stress: Viability: Radiopharm.Tc99m SbmmrvnbhAe54b Sestamibi Dxjq33gLi 33mCi Img Date 04/19/2022 04/19/2022 Inj-Img Itoe70lcs. 60min. Rest Admin Site:IV - Left HandAdministrator:Memo Quezada RT (R)(N) Stress Admin Site: IV - Left HandAdministrator: RT Stefania (R)(N) STRESS DATA End Diast. Vol.37.0mlLVEDV index BSA18.0ml End Syst. Vol.0.0mlLVESV index BSA0.0ml Myocardial Mass85.0gEject. Uvyabibo836.0% Stress Scores Regional WT1.00Summed WT6.00 Regional WM0.00Summed WM0.00 LV Perfusion The stress scans showed no significant defects. The rest scans showed no significant defects. Nuclear imaging showed no reversible ischemia or infarct. Wall Motion Intact LV systolic function with an ejection fraction of greater than 75%. LV Perf. Quant 17 Seg. SSS0.00 17 Seg. SRS0.00 17 Seg. SDS0.00 Stress Defect Extent (% LAD)0.00Rest Defect Extent (% LAD)0.00Rev. Defect Extent (% LAD)0.00 Stress Defect Extent (% LCX) 0.00Rest Defect Extent (% LCX)0.00Rev. Defect Extent (% LCX)0.00 Stress Defect Extent (% RCA)0.00Rest Defect Extent (% RCA)0.00Rev. Defect Extent (% RCA)0.00 Stress Defect Extent (% MACKENZIE)0.00Rest Defect Extent (% MACKENZIE)0.00Rev. Defect Extent (% MACKENZIE)0.00 Conclusion 1. No EKG evidence of stress-induced ischemia. 2. Nuclear imaging shows no reversible ischemia or infarct. 3. Intact LV systolic function with an ejection fraction of greater than 75%. 4. Low risk Lexiscan nuclear stress test. Signed by : Floyd Guy MD Electronically Approved : 04/19/2022 15:19:40
--- NOTE | 2022-04-19 15:40 | RAD ---
MR#: [id number] Date of Study: 04/19/2022 Ordering Physician: ANDREW SPARROW, Referring Physician: ANDREW SPARROW, Tech: Wesly Denise MBA, RDMS, RVT, RDCS, RTR APPROVED REPORT Patient Location: OUT-PATIENT Indications PAD Findings The right ankle-brachial index was abnormal at 0.78 suggesting moderate peripheral artery stenosis. The left ankle-brachial index is within normal limits at 0.99. Critical Notification Critical Value: No <Conclusion> Bilateral lower extremity ankle-brachial indices suggestive moderate right lower extremity peripheral artery stenosis. Signed by : Carmelo Lyon, Electronically Approved : 04/19/2022 15:39:47
--- NOTE | 2022-04-19 15:46 | RAD ---
MR#: [id number] Date of Study: 04/19/2022 Ordering Physician: ANDREW SPARROW, Referring Physician: ANDREW SPARROW, Tech: Wesly Denise MBA, RDMS, RVT, RDCS, RTR APPROVED REPORT Patient Location: OUT-PATIENT Indications PAD VELOCITY AND DOPPLER WAVEFORM ANALYSIS RIGHT cm/secWaveformSeverity LEFT cm/secWaveform Severity dCFA 141.0MonophasicdCFA 156.0Triphasic Prof Fem Art. 95.0MonophasicProf Fem Art. 75.0Triphasic Fem Art Prox. 92.0MonophasicFem Art Prox. 97.0Biphasic Fem Art Mid. 83.0MonophasicFem Art Mid. 84.0Biphasic Fem Art Dist. 90.0MonophasicFem Art Dist. 85.0Biphasic Pop Art(Fossa) 118.0MonophasicPop Art(AK) 123.0Biphasic PRODUCT DEVELOPMENT SCIENTIST Prox. 46.0MonophasicPTA Prox. 98.0Triphasic PRODUCT DEVELOPMENT SCIENTIST Dist. 22.0MonophasicPTA Dist. 82.0Triphasic Per Art Mid. 22.0MonophasicPer Art Mid. 87.0Triphasic BEN Prox. 26.0MonophasicATA Prox. 212.0Triphasic DPA 25MonophasicDPA 24Monophasic Findings Grayscale images of peripheral arteries bilateral lower extremities showed mild to moderate diffuse a therosclerosis. Spectral waveform and color duplex analysis was performed. In the right lower extre mity, there were normal velocities in the right common femoral, deep femoral, superficial femoral and proximal portion of popliteal arteries. There were monophasic waveforms in these arteries probably from inflow disease. The distal segment of the right popliteal artery showed 100% occlusion, describ ed in prior arterial duplex scan from November 2021. There is distal reconstitution of posterior tibi al, peroneal and anterior tibial arteries via collaterals with monophasic waveforms and diminished ve locities. In the left lower extremity, there were triphasic and biphasic waveforms with normal veloc ities in common femoral, deep femoral, superficial femoral and popliteal arteries. There is three-ve ssel runoff below the knee with triphasic waveforms. The dorsalis pedis artery showed monophasic wav eforms probably secondary to moderate diffuse disease. 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 This was described in prior arterial duplex scan from November 2021. Signed by : Carmelo Lyon, Electronically Approved : 04/19/2022 15:45:48
== END ==
LOC: NM 09:23
PROVIDERS: ATTEND Internal Medicine Cardiovascular Disease
DX: I70.203 Unspecified atherosclerosis of native arteries of extremities, bilateral legs (principal); R06.00 Dyspnea, unspecified
CPT/HCPCS: 78452; 93017; 93922; 93925; A9500; J2785